=== PATIENT | male | born 1965 | race Caucasian/White ===

== ENCOUNTER 2024-08-20 21:28 | Emergency (ER) | payer MEDICAID, SELFPAY ==
[2024-08-20 21:29] VITALS: BMI 35.8
--- NOTE | 2024-08-20 21:34 | EKG_ITS ---
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
[2024-08-20 22:22] VITALS: BP 162/82; PULSE 99; RESP 24; TEMP 36.8; O2SAT 95
--- NOTE | 2024-08-20 22:53 | XR_ITS ---
Examination: AP chest single view Technique: AP portable upright chest single view Exam date and time: August 20, 2024 1101 hrs. Comparison July 19, 2022 Indications: Chest pain shortness of breath today Findings: Mild prominence left ventricle Cardiac leads satisfactory position Suspicious for early left base pneumonia with obscuration detail left hemidiaphragm Mild vascular congestion Impression: Suspicious for early left base pneumonia
--- NOTE | 2024-08-20 22:54 | PD.EDRME ---
Rapid Medical Screening Exam [facility] Arrival date/time: 08/20/24 21:28 58M with history of COPD, DM, HTN, and drug/alcohol use presents to ED with worsening cough and SOB. Patient is currently on some ABX and steroid w/o improvement. Chief Complaint: Shortness of Breath/Dyspnea Vital signs: Vital Signs Temperature 98.3 F 08/20/24 22:22 Pulse Rate 99 08/20/24 22:22 Respiratory Rate 24 H 08/20/24 22:22 Blood Pressure 162/82 H 08/20/24 22:22 Pulse Oximetry (%) 95 08/20/24 22:22 Oxygen Delivery Method Room Air 08/20/24 22:22
[2024-08-20 23:07] VITALS: PULSE 82; RESP 20; O2SAT 97
[2024-08-20] MEDS: LEVALBUTEROL RT 1.25 MG/0.5 ML NEBU 5 MG INH (23:07)
[2024-08-20] MEDS: SODIUM CHLORIDE RT SOL 0.9% 3 ML NEBU INH (23:07)
[2024-08-20] MEDS: IPRATROPIUM RT 0.5 MG/ 2.5 ML NEBU 1 MG INH (23:07)
[2024-08-20 23:54] LABS: Basophils % (Auto) 1 % (0-2.5); Eosinophils # (Auto) 0.3 Thou/mm3 (0.0-0.5); Eosinophils % (Auto) 5 % (0-10); Hematocrit 45.6 % (41.0-53.0); Hemoglobin 14.6 g/dL (13.5-16.0); Immature Granulocytes % (Auto) 0 % (0-0); Immature Granulocytes Auto 0.01 Thou/mm3 (0.00-0.00); Lymphocytes # (Auto) 1.5 Thou/mm3 (1.0-4.8); Lymphocytes % (Auto) 23 % (10-50); Mean Corpuscular Hemoglobin 28.7 pg (25.0-35.0); Mean Corpuscular Volume 90 fL (80-100); Monocytes # (Auto) 0.8 Thou/mm3 (0.0-0.8); Monocytes % (Auto) 12 % (0-12); Neutrophils # (Auto) 3.8 Thou/mm3 (1.8-7.7); Neutrophils % (Auto) 59 % (37-80); Nucleated Red Blood Cell % 0 /100 WBC (0); Platelet Count 165 Thou/mm3 (140-440); RDW Standard Deviation 52.4 fL (35.1-43.9); Red Blood Count 5.09 Miln/mm3 (4.50-5.90); White Blood Count 6.4 Thou/mm3 (3.8-10.6)
[2024-08-21 00:08] LABS: INR 1.1 (0.9-1.3); Partial Thromboplastin Time 27.9 Seconds (22.0-36.0); Prothrombin Time 12.1 Seconds (9.0-12.2)
[2024-08-21 00:19] LABS: Alanine Aminotransferase 16 U/L (10-49); Albumin, Serum 3.7 gm/dL (3.5-5.0); Albumin/Globulin Ratio 1.1 (1.2-2.2); Alkaline Phosphatase 204 U/L (46-116); Anion Gap 6 (7-16); Aspartate Amino Transferase 24 U/L (0-34); BUN/Creatinine Ratio 13 Ratio (12-20); Bilirubin,Total 0.4 mg/dL (0.3-1.2); Blood Urea Nitrogen 18 mg/dL (9-23); Calcium 8.5 mg/dL (8.3-10.6); Calcium (Corrected) 8.7 mg/dL (8.5-10.1); Carbon Dioxide 25.7 mMol/L (20.0-31.0); Chloride 104 mMol/L (98-107); Creatinine (Component) 1.4 mg/dL (0.6-1.3); Estimated Creatinine Clearance 77.8 mL/min (>60); Globulin 3.5 gm/dL (2.3-3.5); Glucose 142 mg/dL (74-106); Osmolality,Calculated 275 (275-295); Potassium 4.2 mMol/L (3.4-5.1); Sodium 136 mMol/L (136-145); Total Protein 7.2 gm/dL (5.7-8.2); eGFR 59 See Note
[2024-08-21 00:34] LABS: B-Type Natriuretic Peptide 1320 pg/mL (0-100)
[2024-08-21] MEDS: DEXAMETHASONE SOD PHOS INJ 10 MG/ML VIAL PO (00:45)
--- NOTE | 2024-08-21 01:45 | PC.NURSE ---
Pt asking if he can leave, and Pt was made aware that he has abnormal labs that require further testing, specifically him having a elevated troponin and Pt was exaplin the dangers of him leveaing up to . Pt stated, ok i will think about it. Pt then got up out of the wheel chair and walk out of the ER and did not sign the AMA sheet. Charge nurse Mehran and MERI Gregory made aware
== END 2024-08-21 01:45 | disposition left against medical advice (07) ==
PROVIDERS: Physician Assistant; Emergency Provider Emergency Medicine
DX: R06.02 Shortness of breath (principal); R05.9 Cough, unspecified; R07.9 Chest pain, unspecified; Z95.0 Presence of cardiac pacemaker; Z53.29 Procedure and treatment not carried out because of patient's decision for other reasons
CPT/HCPCS: 36415; 71045; 80053; 83880; 84484; 85025; 85610; 85730; 93005; 94644; 99281; J1100

== ENCOUNTER → 2024-09-10 | Outpatient (CLI) | payer MEDICAID, SELFPAY ==
[2024-09-10 11:16] LABS: Basophils # (Auto) 0.1 Thou/mm3 (0.0-0.2); Basophils % (Auto) 1 % (0-2.5); Eosinophils # (Auto) 0.1 Thou/mm3 (0.0-0.5); Eosinophils % (Auto) 1 % (0-10); Hemoglobin 14.7 g/dL (13.5-16.0); Immature Granulocytes % (Auto) 0 % (0-0); Immature Granulocytes Auto 0.02 Thou/mm3 (0.00-0.00); Lymphocytes # (Auto) 1.7 Thou/mm3 (1.0-4.8); Lymphocytes % (Auto) 22 % (10-50); Mean Corpuscular Hemoglobin 28.4 pg (25.0-35.0); Mean Corpuscular Volume 89 fL (80-100); Monocytes # (Auto) 0.6 Thou/mm3 (0.0-0.8); Monocytes % (Auto) 7 % (0-12); Neutrophils # (Auto) 5.4 Thou/mm3 (1.8-7.7); Neutrophils % (Auto) 69 % (37-80); Nucleated Red Blood Cell # 0.02 Thou/mm3 (0.00-0.00); Nucleated Red Blood Cell % 0 /100 WBC (0); Platelet Count 215 Thou/mm3 (140-440); Red Blood Count 5.17 Miln/mm3 (4.50-5.90); White Blood Count 7.7 Thou/mm3 (3.8-10.6)
[2024-09-10 11:33] LABS: Albumin, Serum 3.6 gm/dL (3.5-5.0); Anion Gap 6 (7-16); BUN/Creatinine Ratio 23 Ratio (12-20); Blood Urea Nitrogen 34 mg/dL (9-23); Calcium 9.4 mg/dL (8.3-10.6); Calcium (Corrected) 9.7 mg/dL (8.5-10.1); Carbon Dioxide 27.4 mMol/L (20.0-31.0); Chloride 103 mMol/L (98-107); Creatinine (Component) 1.5 mg/dL (0.6-1.3); Glucose 315 mg/dL (74-106); Osmolality,Calculated 291 (275-295); Phosphorous 5.3 mg/dL (2.4-5.1); Sodium 136 mMol/L (136-145); eGFR 54 See Note
[2024-09-10 11:40] LABS: B-Type Natriuretic Peptide 2459 pg/mL (0-100)
== END | disposition home or self-care (01) ==
PROVIDERS: PCP Family Medicine; Referring Provider Internal Medicine Cardiovascular Disease; Visit Provider Internal Medicine Cardiovascular Disease
DX: I11.0 Hypertensive heart disease with heart failure (principal); I50.9 Heart failure, unspecified; E78.49 Other hyperlipidemia
CPT/HCPCS: 36415; 80069; 83880; 85025

== ENCOUNTER 2024-10-07 17:44 | Emergency (ER) | payer MEDICAID, SELFPAY ==
[2024-10-07 18:00] VITALS: BP 173/117; PULSE 102; RESP 22; TEMP 38.3; O2SAT 97; BMI 38.5
--- NOTE | 2024-10-07 18:02 | PD.EDADULT ---
ED General RME/HPI General Stated complaint: SOB Time Seen by Provider: 10/07/24 17:55 Arrival date/time: 10/07/24 17:44 RME / HPI RME / HPI narrative: 59-year-old male patient with significant history of congestive heart failure, diabetes mellitus, cardiomyopathy was brought in by EMS for evaluation regarding worsening redness bilateral lower extremity and shortness of breath. Patient's been having worsening shortness of breath, worsening swelling and redness to bilateral lower extremity for couple of days, was seen by PCP earlier today and was prescribed cefuroxime and Related Data Home Medications ?Medication ?Instructions ?Recorded ?Confirmed gabapentin 600 mg tablet 600 mg PO TID 07/19/22 07/19/22 Previous Rx's ?Medication ?Instructions ?Recorded albuterol sulfate 90 mcg/actuation 1 - 2 puff inhalation Q6HR PRN 07/08/17 aerosol inhaler (ProAir HFA) WHEEZING #1 inh dapagliflozin propanediol 10 mg 10 mg PO QDAY #30 tabs 07/22/22 tablet (Farxiga) insulin degludec 100 unit/mL (3 40 unit (0.4 mL) subcut QAMAC 30 07/22/22 mL) subcutaneous pen (Tresiba days #15 mL FlexTouch U-100 insulin) Allergies Allergy/AdvReac Type Severity Reaction Status Date / Time No Known Allergies Allergy Unknown Verified 08/20/24 21:31 ED Exam Narrative Physical exam: VITAL SIGNS: Reviewed. GENERAL APPEARANCE: Alert and interactive, follows commands, no acute distress, HEAD AND FACE: Non-traumatic. ENT: PERRL, pink conjunctivitis, eyelid no trauma, Mucous membrane moist. NECK: Supple, nontender, no nuchal rigidity. CHEST: No tenderness, no crepitus, no paradoxical movement, no retractions. LUNGS: Clear, well ventilated, symmetric, no rales, no wheezing, no ronchi, no stridor, good breath sounds bilaterally. HEART: Regular rate, regular rhythm, no murmur, no gallops. ABDOMEN: Soft, positive bowel sounds, nondistended, no guarding, nontender, no rebound, no masses, RECTAL: Deferred. GENITAL: Deferred. NEUROLOGICAL: Gross motor function intact sensory function intact, Appropriate for age. MUSCULOSKELETAL: low back nontender, full range of motion. EXTREMITIES: Bilateral lower extremity redness and swelling with tenderness, full range of motion. Capillary refill less than 2 seconds to bilateral foot SKIN: Color pink, dry, no rash, no lacerations, no abrasions, no contusions. LYMPHATICS: Deferred. 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 10/07/24 18:00 Completed Continuous Pulse Oximetry STAT Care 10/07/24 18:00 Completed EKG (ED ONLY) *Do not use* NOW Care 10/07/24 18:00 Completed In and Out Catheter X1PRN Care 10/07/24 18:00 Completed Insert IV NOW Care 10/07/24 18:00 Completed NPO STAT Care 10/07/24 18:00 Completed Strict Intake and Output Routine Care 10/07/24 18:00 Ordered EKG (ED Only) Stat Exams 10/07/24 18:00 Ordered B-Type Natriuretic Peptide Stat Lab 10/07/24 18:25 Completed Blood Culture (Lab) Stat Lab 10/07/24 18:20 Received CBC Stat Lab 10/07/24 18:25 Completed Comprehensive Metabolic Panel Stat Lab 10/07/24 18:25 Completed LDH (Lactate Dehydrogenase) Stat Lab 10/07/24 18:25 Completed Lactate (Lactic Acid) Stat Lab 10/07/24 18:25 Completed Lipase Stat Lab 10/07/24 18:25 Completed Magnesium Stat Lab 10/07/24 18:25 Completed Partial Thromboplastin Time Stat Lab 10/07/24 18:25 Completed Phosphorous Stat Lab 10/07/24 18:25 Completed Procalcitonin Stat Lab 10/07/24 18:25 Completed Prothrombin Time with INR Stat Lab 10/07/24 18:25 Completed Troponin I Stat Lab 10/07/24 18:25 Completed Urinalysis Stat Lab 10/07/24 19:01 Completed Urine Culture Stat Lab 10/07/24 19:01 Received cefTRIAXone/D5w 1gm IV premix [Rocephin/D5w 1gm IV Med 10/07/24 18:01 Discontinued premix] 50 ml IV X1 Oxygen Delivery NOW RT 10/07/24 18:00 Completed Vital Signs Vital signs: Vital Signs Temperature 101.0 F H 10/07/24 18:00 Pulse Rate 102 H 10/07/24 18:00 Respiratory Rate 22 H 10/07/24 18:00 Blood Pressure 173/117 H 10/07/24 18:00 Pulse Oximetry (%) 97 10/07/24 18:00 Oxygen Delivery Method Nasal Cannula 10/07/24 18:00 Oxygen Flow Rate 6 10/07/24 18:00 MDM Patient data External records reviewed:: None Clinical information provided by:: patient Social determinants that could affect healthcare access:: none Patient has the following chronic illnesses:: Diabetes mellitus cardiomyopathy congestive heart failure hypertension How is presenting disease/condition affected by chronic disease/condition?: exacerbated by Evaluation data The following diagnostics were reviewed and interpreted by me:: lab results and radiology exam(s) Lab and/or radiology exams considered but not ordered:: None Interpretation Summary: AMA Medications Medications considered but not ordered:: AMA Medication administrations:: Medication Administration History Discontinued Medications Ceftriaxone Sodium/Dextrose (Rocephin/D5w 1gm Iv Premix) 50 mls @ 100 mls/hr IV X1 ONE Stop: 10/07/24 18:30 AMA Consultations Consultation(s) initiated? (list below): No Diagnosis Differential Diagnosis ED Complaint MDM: Cellulitis, shortness of breath, fever Most likely diagnosis given after review of the tests above:: Cellulitis leg Admission Indicated Admission indicated?: not indicated (AMA) Explain why admission is indicated or not indicated:: AMA Admission Request Was there a request for admission?: No Admission Attestation Admission request attestation: AMA Disposition Plan Disposition Plan: other (specify) (AMA) Medical Decision Making MDM Narrative MDM Narrative: Pt has normal mental status and adequate capacity to make medical decisions. Oriented x 4. The patient refuses evaluation and treatment and wants to be discharged. The risks have been explained to the patient, including progression of possible worsening of current disease, worsening illness, chronic pain, permanent disability and . The benefits of evaluation and treatment have also been explained, including the availability and proximity of nurses, physicians, monitoring, diagnostic testing, and treatments. The patient was able to understand and state the risks and benefits of AMA.Patient had the opportunity to ask questions about their medical condition. He left hospital against medical advice. Differential Diagnosis Differential Diagnosis: Cellulitis, shortness of breath, fever Lab Data 10/07/24 18:25 10/07/24 18:25 Labs: Lab Results 10/07/24 10/07/24 Range/Units 18: 19:01 WBC 11.0 H (3.8-10.6) Thou/mm3 RBC 5.36 (4.50-5.90) Miln/mm3 Hgb 15.3 (13.5-16.0) g/dL Hct 47.9 (41.0-53.0) % MCV 89 (80-100) fL MCH 28.5 (25.0-35.0) pg MCHC 31.9 (31.0-37.0) g/dl RDW Std Deviation 61.1 H (35.1-43.9) fL Plt Count 189 (140-440) Thou/mm3 Neut % (Auto) 81 H (37-80) % Lymph % (Auto) 11 (10-50) % [place] % (Auto) 7 (0-12) % Eos % (Auto) 1 (0-10) % Baso % (Auto) 0 (0-2.5) % Neut # (Auto) 8.9 H (1.8-7.7) Thou/mm3 Lymph # (Auto) 1.2 (1.0-4.8) Thou/mm3 [place] # (Auto) 0.8 (0.0-0.8) Thou/mm3 Eos # (Auto) 0.1 (0.0-0.5) Thou/mm3 Baso # (Auto) 0.0 (0.0-0.2) Thou/mm3 Immature Gran # (Auto) 0.04 H (0.00-0.00) Thou/mm3 Absolute Nucleated RBC 0.00 (0.00-0.00) Thou/mm3 Immature Gran % 0 (0-0) % Nucleated RBC % 0 (0) /100 WBC PT 12.4 H (9.0-12.2) Seconds INR 1.1 (0.9-1.3) APTT 26.7 (22.0-36.0) Seconds Sodium 136 (136-145) mMol/L Potassium 4.4 (3.4-5.1) mMol/L Chloride 102 (98-107) mMol/L Carbon Dioxide 27.0 (20.0-31.0) mMol/L Anion Gap 7 (7-16) BUN 27 H (9-23) mg/dL Creatinine 2.1 H (0.6-1.3) mg/dL Estim Creat Clear Calc 53.2 L (>60) mL/min eGFR 36 L (60 - ) See Note BUN/Creatinine Ratio 13 (12-20) Ratio Glucose 227 H (74-106) mg/dL Calculated Osmolality 284 (275-295) Lactic Acid 1.3 (0.4-2.0) mMol/L Calcium 8.6 (8.3-10.6) mg/dL Corrected Calcium 8.8 (8.5-10.1) mg/dL Phosphorus 4.1 (2.4-5.1) mg/dL Magnesium 1.9 (1.6-2.6) mg/dL Total Bilirubin 0.7 (0.3-1.2) mg/dL AST 21 (0-34) U/L ALT 19 (10-49) U/L Alkaline Phosphatase 258 H (46-116) U/L Lactate Dehydrogenase 258 H (120-246) U/L Troponin I 0.076 H* (0.0-0.045) ng/mL B-Natriuretic Peptide 1630 H* (0-100) pg/mL Total Protein 7.3 (5.7-8.2) gm/dL Albumin 3.7 (3.5-5.0) gm/dL Globulin 3.6 H (2.3-3.5) gm/dL Albumin/Globulin Ratio 1.0 L (1.2-2.2) Lipase 27 (12-53) U/L Procalcitonin 0.22 (0.0-0.49) ng/ml Ur Collection Type Clean Catch Urine Color Lt-Yellow (Lt Yel-Yel) Urine Clarity Clear (Clear/Hazy) Urine pH 6.0 (5.0-7.0) Ur Specific [place] 1.017 (1.001-1.035) Urine Protein 2+ A (Neg - Trace) Urine Glucose (UA) 4+ A (Negative) Urine Ketones Negative (Negative) Urine Blood Trace (Negative) Urine Nitrite Negative (Negative) Urine Bilirubin Negative (Negative) Urine Urobilinogen (Auto) Negative (0.0-1.0) mg/dL Ur Leukocyte Esterase Negative (Negative) Urine RBC 4 H (0-3) /hpf Urine WBC < 1 (0-5) /hpf Ur Squamous Epith Cells 0 (0-5) /hpf Urine Bacteria None (None) Discharge Plan Plan Patient Disposition: Left Against Medical Advice Prescriptions/Referrals Prescriptions/Med Rec: No Action albuterol sulfate [ProAir HFA] 8.5 GM HFA aerosol inhaler 1 - 2 puff Inhalation Q6HR PRN (Reason: WHEEZING) Qty: 1 0RF Rx Instructions: Please give and use spacer gabapentin 600 mg tablet 600 mg PO TID Patient Comments: TAKE 1 TABLET BY MOUTH THREE TIMES A DAY insulin degludec [Tresiba FlexTouch U-100] 100 unit/mL (3 mL) Insulin Pen 40 unit SUBCUT QAMAC 30 Days Qty: 15 0RF Farxiga 10 mg tablet 10 mg PO QDAY Qty: 30 0RF Referrals: Jad Lipscomb MD [Primary Care Provider] - In 1 week Problem List Clinical Impression: Cellulitis Patient/Caregiver Discharge Instructions Print Language: Bulgarian
[2024-10-07 18:29] LABS: Lactate (Lactic Acid) 1.3 mMol/L (0.4-2.0)
[2024-10-07 18:51] LABS: Basophils % (Auto) 0 % (0-2.5); Eosinophils # (Auto) 0.1 Thou/mm3 (0.0-0.5); Eosinophils % (Auto) 1 % (0-10); Hematocrit 47.9 % (41.0-53.0); Hemoglobin 15.3 g/dL (13.5-16.0); Immature Granulocytes % (Auto) 0 % (0-0); Immature Granulocytes Auto 0.04 Thou/mm3 (0.00-0.00); Lymphocytes # (Auto) 1.2 Thou/mm3 (1.0-4.8); Lymphocytes % (Auto) 11 % (10-50); Mean Corpuscular HGB Conc 31.9 g/dl (31.0-37.0); Mean Corpuscular Hemoglobin 28.5 pg (25.0-35.0); Mean Corpuscular Volume 89 fL (80-100); Monocytes # (Auto) 0.8 Thou/mm3 (0.0-0.8); Monocytes % (Auto) 7 % (0-12); Neutrophils # (Auto) 8.9 Thou/mm3 (1.8-7.7); Neutrophils % (Auto) 81 % (37-80); Nucleated Red Blood Cell % 0 /100 WBC (0); Platelet Count 189 Thou/mm3 (140-440); RDW Standard Deviation 61.1 fL (35.1-43.9); Red Blood Count 5.36 Miln/mm3 (4.50-5.90)
[2024-10-07 18:57] LABS: INR 1.1 (0.9-1.3); Partial Thromboplastin Time 26.7 Seconds (22.0-36.0); Prothrombin Time 12.4 Seconds (9.0-12.2)
[2024-10-07 18:59] LABS: Alanine Aminotransferase 19 U/L (10-49); Albumin, Serum 3.7 gm/dL (3.5-5.0); Alkaline Phosphatase 258 U/L (46-116); Anion Gap 7 (7-16); Aspartate Amino Transferase 21 U/L (0-34); B-Type Natriuretic Peptide 1630 pg/mL (0-100); BUN/Creatinine Ratio 13 Ratio (12-20); Bilirubin,Total 0.7 mg/dL (0.3-1.2); Blood Urea Nitrogen 27 mg/dL (9-23); Calcium 8.6 mg/dL (8.3-10.6); Calcium (Corrected) 8.8 mg/dL (8.5-10.1); Chloride 102 mMol/L (98-107); Creatinine (Component) 2.1 mg/dL (0.6-1.3); Estimated Creatinine Clearance 53.2 mL/min (>60); Globulin 3.6 gm/dL (2.3-3.5); Glucose 227 mg/dL (74-106); LDH (Lactate Dehydrogenase) 258 U/L (120-246); Lipase 27 U/L (12-53); Magnesium 1.9 mg/dL (1.6-2.6); Osmolality,Calculated 284 (275-295); Phosphorous 4.1 mg/dL (2.4-5.1); Potassium 4.4 mMol/L (3.4-5.1); Procalcitonin 0.22 ng/ml (0.0-0.49); Sodium 136 mMol/L (136-145); Total Protein 7.3 gm/dL (5.7-8.2); eGFR 36 See Note
[2024-10-07 19:02] LABS: Troponin I 0.076 ng/mL (0.0-0.045)
[2024-10-07 19:17] LABS: Collection Type, Urine Clean Catch; Squamous Epithelial Cell,Urine 0 /hpf (0-5)
--- NOTE | 2024-10-07 19:27 | PC.NURSE ---
pt wanted to leave AMA, pt was A/O x4 and AMA form was filled out to the best of nurse and pts knowledge of why pt was wanting to leave. pt was given yellow copy of AMA form. left 1924
[2024-10-07 19:44] LABS: Bilirubin,Urine Negative (Negative); Blood,Urine Trace (Negative); Clarity,Urine Clear (Clear/Hazy); Color,Urine Lt-Yellow (Lt Yel-Yel); Glucose, Urine 4+ (Negative); Ketones,Urine Negative (Negative); Leukocyte Esterase,Urine Negative (Negative); Nitrite,Urine Negative (Negative); Protein,Urine 2+ (Neg - Trace); RBC,Urine 4 /hpf (0-3); Specific Gravity,Urine 1.017 (1.001-1.035); Urobilinogen,Urine Negative mg/dL (0.0-1.0); WBC,Urine < 1 /hpf (0-5)
== END 2024-10-07 19:29 | disposition left against medical advice (07) ==
LOC: SERX 18:31
PROVIDERS: Nurse Practitioner Family; Emergency Provider Emergency Medicine; PCP Family Medicine
DX: L03.116 Cellulitis of left lower limb (principal); L03.115 Cellulitis of right lower limb; Z53.29 Procedure and treatment not carried out because of patient's decision for other reasons; E11.9 Type 2 diabetes mellitus without complications; I42.9 Cardiomyopathy, unspecified; I50.9 Heart failure, unspecified
CPT/HCPCS: 36415; 80053; 81001; 83605; 83615; 83690; 83735; 83880; 84100; 84145; 84484; 85025; 85610; 85730; 87040; 87086; 99283

== ENCOUNTER 2024-10-09 03:47 | Inpatient (IN) | payer MEDICAID, SELFPAY ==
[2024-10-09] VITALS (16 sets, daily range): BP systolic 95–157; BP diastolic 73–116; PULSE 81–105; RESP 15–24; TEMP 35.7–37.6; O2SAT 89–97; BMI 37.1
--- NOTE | 2024-10-09 04:04 | PD.EDRME ---
Rapid Medical Screening Exam RME Arrival date/time: 10/09/24 03:47 59 yo male present to ED for c/o of lower leg swelling/sob for 3 days I have greeted and performed a focused initial assessment of this patient. A comprehensive ED assessment and evaluation of the patient, analysis of all test results, and completion of the medical decision making process will be conducted by additional ED providers. Chief Complaint: Extremity Problem,Nontraumatic Time Seen by Provider: 10/09/24 04:02 Vital signs: Vital Signs Temperature 96.3 F L 10/09/24 03:59 Pulse Rate 84 10/09/24 03:59 Respiratory Rate 20 10/09/24 03:59 Blood Pressure 120/87 H 10/09/24 03:59 Pulse Oximetry (%) 93 L 10/09/24 03:59 Oxygen Delivery Method Room Air 10/09/24 03:59
--- NOTE | 2024-10-09 04:05 | EKG_ITS ---
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
--- NOTE | 2024-10-09 04:05 | XR_ITS ---
Examination: PA lateral chest 2 views TECHNIQUE: Upright PA lateral chest 2 views Exam date and time: October 09, 2024 0410 hours Comparison August 20, 2024 INDICATIONS: Shortness of breath leg edema today. FINDINGS: Mild heart failure Mild enlargement cardiac contour Prominent vascular congestion Early septal edema at the lung bases and fluid in the fissures on the lateral view Mild blunting of costophrenic angles IMPRESSION: Early heart failure
[2024-10-09 05:46] LABS: Lactate (Lactic Acid) 1.8 mMol/L (0.4-2.0)
[2024-10-09 05:52] LABS: Basophils % (Auto) 0 % (0-2.5); Eosinophils # (Auto) 0.1 Thou/mm3 (0.0-0.5); Eosinophils % (Auto) 1 % (0-10); Hematocrit 44.7 % (41.0-53.0); Hemoglobin 14.5 g/dL (13.5-16.0); Immature Granulocytes % (Auto) 0 % (0-0); Immature Granulocytes Auto 0.04 Thou/mm3 (0.00-0.00); Lymphocytes # (Auto) 1.4 Thou/mm3 (1.0-4.8); Lymphocytes % (Auto) 14 % (10-50); Mean Corpuscular HGB Conc 32.4 g/dl (31.0-37.0); Mean Corpuscular Hemoglobin 28.8 pg (25.0-35.0); Mean Corpuscular Volume 89 fL (80-100); Monocytes # (Auto) 0.9 Thou/mm3 (0.0-0.8); Monocytes % (Auto) 9 % (0-12); Neutrophils # (Auto) 7.5 Thou/mm3 (1.8-7.7); Neutrophils % (Auto) 76 % (37-80); Nucleated Red Blood Cell % 0 /100 WBC (0); Platelet Count 174 Thou/mm3 (140-440); RDW Standard Deviation 60.5 fL (35.1-43.9); Red Blood Count 5.04 Miln/mm3 (4.50-5.90); White Blood Count 9.9 Thou/mm3 (3.8-10.6)
[2024-10-09 06:27] LABS: Alanine Aminotransferase 19 U/L (10-49); Albumin, Serum 3.6 gm/dL (3.5-5.0); Alkaline Phosphatase 272 U/L (46-116); Anion Gap 7 (7-16); Aspartate Amino Transferase 19 U/L (0-34); B-Type Natriuretic Peptide 1104 pg/mL (0-100); BUN/Creatinine Ratio 18 Ratio (12-20); Blood Urea Nitrogen 31 mg/dL (9-23); Calcium (Corrected) 9.3 mg/dL (8.5-10.1); Carbon Dioxide 28.7 mMol/L (20.0-31.0); Chloride 99 mMol/L (98-107); Creatinine (Component) 1.7 mg/dL (0.6-1.3); Estimated Creatinine Clearance 64.5 mL/min (>60); Globulin 3.6 gm/dL (2.3-3.5); Glucose 191 mg/dL (74-106); Osmolality,Calculated 281 (275-295); Potassium 4.3 mMol/L (3.4-5.1); Sodium 135 mMol/L (136-145); Total Protein 7.2 gm/dL (5.7-8.2); eGFR 46 See Note
[2024-10-09 06:44] LABS: Troponin I 0.079 ng/mL (0.0-0.045)
--- NOTE | 2024-10-09 08:32 | PC.NURSE ---
Patient came in by private vehicle from home. states that about a week and a half ago his left toes started to become red and in the last 2 days has become very red, swollen, and painful. he states that his right leg was also swollen but has decreased. Describes the pain as burning and throbbing 10/10 PMH: Stroke, NH (pacemaker placed about 2 years ago), DM, HTN, nephrectoy, and COPD.
--- NOTE | 2024-10-09 09:27 | EDNOTE_ITS ---
ED General RME/HPI General Chief complaint: Extremity Problem,Nontraumatic Stated complaint: BILATERAL LEG SWELLING Time Seen by Provider: 10/09/24 04:02 Arrival date/time: 10/09/24 03:47 RME / HPI RME / HPI narrative: Bonny complaint: 10/09/24 03:47 lower leg swelling and pain for 3 days HPI: Patient is a 59 year old male who presented to ED for chief complaint of left lower leg swelling x 3 days. Patient started experiencing left foot first digit pain 4 days ago which progressively got worse, with skin changes around the area and significant swelling trending upwards towards the knee. Over the last 5 days patient has developed severe redness, tenderness and a rash on both his lower extremities. Patient has chronic skin changes on his right lower extremity, due to venous insufficiency. However his left lower extremity has now developed a red maculopapular rash extending up to the mid shins, with pain extending above the knee he also had subjective fevers and chills at home, witnessed by his caretakers. Patient is otherwise ambulatory however needs assistance with activities of daily living. He describes his pain as dull, achy and 7/10 in severity, and progressing up his leg. He has never experienced the symptoms in the past. In the ED, vitals were within normal limits. Lab work negative for leukocytosis, mild LUDY noted CR 1.7 and GFR 46. BNP >1K, likely in the setting of [employer]. Past medical history: Congenital unilateral kidney- RT only Primary hypertension HFrEF s/p [employer]-D 2 years ago COPD Type 2 insulin-dependent diabetes mellitus Peripheral neuropathy Hypercholesterolemia Morbid obesity Allergies: No known food or drug allergies Social history: Tobacco?Use:?Denies ETOH?Use:?Denies Drug?Note:?Denies Social?History?Note:?Lives?at home with his mother, 2caretakers come in for 12- hour shifts. Family history: Denies any family history of sudden cardiac , stroke or cancers. Related Data Home Medications ?Medication ?Instructions ?Recorded ?Confirmed gabapentin 600 mg tablet 600 mg PO TID 07/19/22 07/19/22 Previous Rx's ?Medication ?Instructions ?Recorded albuterol sulfate 90 mcg/actuation 1 - 2 puff inhalation Q6HR PRN 07/08/17 aerosol inhaler (ProAir HFA) WHEEZING #1 inh dapagliflozin propanediol 10 mg 10 mg PO QDAY #30 tabs 07/22/22 tablet (Farxiga) insulin degludec 100 unit/mL (3 40 unit (0.4 mL) subcut QAMAC 30 07/22/22 mL) subcutaneous pen (Tresiba days #15 mL FlexTouch U-100 insulin) Allergies Allergy/AdvReac Type Severity Reaction Status Date / Time No Known Allergies Allergy Unknown Verified 10/09/24 03:51 Review of Systems Review of Systems Narrative Review of Systems: GENERAL: fevers/chills , no diaphoresis. HEENT: Denies headache or visual/hearing changes. Denies nasal discharge. NEURO: Denies unusual weakness or difficulty speaking. CARDIO: Denies chest pain or palpitations. PULM: Denies SOB, coughing, or wheezing. GI: Denies abdominal pain, N/V/C/D. Reports having BMs URO: Denies burning/itching/pain/urinary changes. MSK/EXT/SKIN: Left leg swelling, pain and redness. PSYCH: Cooperative, pleasant mood & affect. The rest of the review of systems is otherwise negative. ED Exam Narrative Physical exam: Constitutional Alert, oriented 4 , obese HEENT Vision grossly intact. Patent nares. Trachea midline. On RA, sats 92-94% Respiratory Chest normal on inspection, LT upper chest [employer], clear to auscultation bilaterally. Cardiovascular S1 and S2 audible, RRR. No murmurs or carotid bruit. No gross JVD. Abdominal Soft, distended, non tender to palpation in all quadrants. BS + Genitourinary No bladder tenderness, no flank pain. Normal to palpation. Musculoskeletal LT LE erythema, tenderness up to the knee. 2+ B/L LE edema up to mid shins Neurological CN II - XII grossly intact. Extremity motor and sensation grossly intact. Skin LLE : maculo-papular rash up to mid david, erythema. RLE : CVI skin changes due to extravasation, chronic. Psychiatric Patient has a good affect, is cooperative. Course Course Course Narrative: Medications given: Ancef x1 Tylenol 1g x1 for LT LE cellulitis IV Lasix 60mg x1 for B/L LE edema and oxygen sats 89% on re-eval Quality Measures none Orders Category Date Time Status EKG (ED ONLY) *Do not use* NOW Care 10/09/24 04:06 Completed IV [Insert IV] STAT Care 10/09/24 04:[address] LE LT wo con Stat Exams 10/09/24 09:58 Completed EKG (ED Only) Stat Exams 10/09/24 04:05 Draft XR chest 2V Stat Exams 10/09/24 04:05 Completed BNP [B-Type Natriuretic Peptide] Stat Lab 10/09/24 04:50 Completed Blood Culture (Lab) Stat Lab 10/09/24 04:50 Received CBC Stat Lab 10/09/24 04:50 Completed CMP [Comprehensive Metabolic Panel] Stat Lab 10/09/24 04:50 Completed Lactic Acid [Lactate (Lactic Acid)] Stat Lab 10/09/24 04:50 Completed Troponin I Stat Lab 10/09/24 04:50 Completed Acetaminophen Tab [Tylenol ES Tab] Med 10/09/24 10:54 Discontinued 1,000 mg PO X1 ONE Furosemide Inj [Lasix Inj] Med 10/09/24 10:53 Discontinued 60 mg IVP X1 ONE ceFAZolin/D5W 2 GM IV [Ancef 2gm Ivpb] Med 10/09/24 10:53 Discontinued 2 gm in 100 ml IV X1 Special Diet Request Routine Oth 10/09/24 10:53 Active Reevaluation(s) Reevaluation #1: 11:00am Oxygen saturations 89% on RA Will give IV Lasix 60mg x1 for bilateral LE edema (Patient takes Metolazone at home) Vital Signs Vital signs: Vital Signs Temperature 96.3 F L 10/09/24 03:59 Pulse Rate 84 10/09/24 03:59 Respiratory Rate 20 10/09/24 03:59 Blood Pressure 120/87 H 10/09/24 03:59 Pulse Oximetry (%) 93 L 10/09/24 03:59 Oxygen Delivery Method Room Air 10/09/24 03:[address] [facility] Patient data External records reviewed:: [facility] previous records Clinical information provided by:: patient and functional manager Social determinants that could affect healthcare access:: none Patient has the following chronic illnesses:: Primary hypertension HFrEF s/p [employer] 2 years ago COPD Type 2 insulin-dependent diabetes mellitus Peripheral neuropathy Hypercholesterolemia Morbid obesity How is presenting disease/condition affected by chronic disease/condition?: e xacerbated by Evaluation data The following diagnostics were reviewed and interpreted by me:: lab results, radiology exam(s) and EKG tracing(s) Lab and/or radiology exams considered but not ordered:: XR LE Interpretation Summary: LT LE cellulitis Medications Medications considered but not ordered:: Morphine Medication administrations:: Medication Administration History Acetaminophen (Acetaminophen 325 Mg Tablet) 650 mg PO Q6H PRN PRN Reason: pain and Fever >100.4 Stop: 11/08/24 14:01 Hydrocodone Bitart/Acetaminophen (Hydrocodone/Apap 5/325 Tablet) 1 tab PO Q4HR PRN PRN Reason: PAIN SCALE 4-10(Mod-Sev Stop: 10/14/24 14:01 Last Admin: 10/09/24 16:45 Dose: 1 tab Documented By: DO Aspirin (Aspirin Ec 81 Mg Tabec) 81 mg PO X1 ONE Stop: 10/10/24 09:01 Atorvastatin Calcium (Atorvastatin Calcium 20 Mg Tablet) 20 mg PO HS DELFINA Stop: 11/08/24 20:59 Dextrose (Dextrose 50%-Water Inj 50 Ml Syringe) 25 ml IV Q15MIN PRN PRN Reason: BG 50-70 responsive npo pt Stop: 11/08/24 14:06 Dextrose (Dextrose 50%-Water Inj 50 Ml Syringe) 50 ml IV Q15MIN PRN PRN Reason: BG <50 OR BG <70 & pt unresponsive Stop: 11/08/24 14:06 Enoxaparin Sodium (Enoxaparin Sod Inj 40 Mg/0.4 Ml Syringe) 40 mg SC QDAY DELFINA Stop: 10/24/24 08:59 Glucagon (Glucagon Inj 1 Mg Vial) 1 mg IM Q15MIN PRN PRN Reason: BG <70, and no IV access Cefazolin Sodium (Ancef 2gm Ivpb) 2 gm in 100 mls @ 100 mls/hr IV Q8HR DELFINA Stop: 10/16/24 14:10 Last Infusion: 10/09/24 16:08 Dose: Infused Documented By: Admin: 10/09/24 14:45 Dose: 100 mls/hr Documented By: ISA Bumetanide 20 mg/ IV (Miscellaneous Supplies) 80 mls @ 8 mls/hr IV .Q10H [facility] Stop: 10/10/24 00:13 Last Admin: 10/09/24 15:11 Dose: 2 mg/hr, 8 mls/hr Documented By: ISA Insulin Human Lispro (Insulin Lispro (Admelog) 1 Unit/0.01 Ml Unit) 0 unit SC AC [facility]; Protocol Stop: 11/08/24 16:59 Last Admin: 10/09/24 17:31 Dose: 1 unit Documented By: ISA Co-signed By: DO Ondansetron HCl (Ondansetron Inj 2 Mg/Ml Inj 2 Ml) 4 mg IV Q6H PRN; Protocol PRN Reason: NAUSEA OR VOMITING Stop: 11/08/24 14:01 Pantoprazole Sodium (Pantoprazole 40 Mg Tablet) 40 mg PO QDAY [facility] Stop: 11/09/24 08:59 Discontinued Medications Acetaminophen (Acetaminophen 500 Mg Tablet) 1,000 mg PO X1 ONE Stop: 10/09/24 10:55 Last Admin: 10/09/24 11:03 Dose: 1,000 mg Documented By: ISA Furosemide (Furosemide Inj 10 Mg/Ml 4ml Vial) 60 mg IVP X1 ONE Stop: 10/09/24 10:54 Last Admin: 10/09/24 11:02 Dose: 60 mg Documented By: ISA Cefazolin Sodium (Ancef 2gm Ivpb) 2 gm in 100 mls @ 200 mls/hr IV X1 ONE Stop: 10/09/24 11:22 Last Infusion: 10/09/24 12:27 Dose: Infused Documented By: Admin: 10/09/24 11:03 Dose: 200 mls/hr Documented By: ISA Emperically for cellulites coevrage Consultations Consultation(s) initiated? (list below): No Diagnosis Differential Diagnosis ED Complaint MDM: necrotizing fascitis Most likely diagnosis given after review of the tests above:: LT LE cellulitis Admission Indicated Admission indicated?: indicated Explain why admission is indicated or not indicated:: Acute cellulitis of LT LE Admission Request Was there a request for admission?: Yes Admission Attestation Admission request attestation: Discussed case with [] from Hospitalist service regarding admission. Discussed patients ED course, exam findings, labs, and radiology results. The Hospitalist [agrees] to accept the patient for admission. Disposition Plan Disposition Plan: other (specify) Medical Decision Making MDM Narrative MDM Narrative: Patient is a 59 year old male who presented with LT lower extremity swelling, pain and rash. CT confirmed Received Ancef x1, tylenol 1g x1 for LT LE cellulitis ; and Lasix 60mg x1 for B/L LE edema Plan: Admit for IV antibiotics and ID consultation re: cellulitis. Differential Diagnosis Differential Diagnosis: necrotizing fascitis Lab Data 10/09/24 04:50 10/09/24 04:50 Labs: Lab Results 10/09/24 Range/Units 04:50 WBC 9.9 (3.8-10.6) Thou/mm3 RBC 5.04 (4.50-5.90) Miln/mm3 Hgb 14.5 (13.5-16.0) g/dL Hct 44.7 (41.0-53.0) % MCV 89 (80-100) fL MCH 28.8 (25.0-35.0) pg MCHC 32.4 (31.0-37.0) g/dl RDW Std Deviation 60.5 H (35.1-43.9) fL Plt Count 174 (140-440) Thou/mm3 Neut % (Auto) 76 (37-80) % Lymph % (Auto) 14 (10-50) % [place] % (Auto) 9 (0-12) % Eos % (Auto) 1 (0-10) % Baso % (Auto) 0 (0-2.5) % Neut # (Auto) 7.5 (1.8-7.7) Thou/mm3 Lymph # (Auto) 1.4 (1.0-4.8) Thou/mm3 [place] # (Auto) 0.9 H (0.0-0.8) Thou/mm3 Eos # (Auto) 0.1 (0.0-0.5) Thou/mm3 Baso # (Auto) 0.0 (0.0-0.2) Thou/mm3 Immature Gran # (Auto) 0.04 H (0.00-0.00) Thou/mm3 Absolute Nucleated RBC 0.00 (0.00-0.00) Thou/mm3 Immature Gran % 0 (0-0) % Nucleated RBC % 0 (0) /100 WBC Sodium 135 L (136-145) mMol/L Potassium 4.3 (3.4-5.1) mMol/L Chloride 99 (98-107) mMol/L Carbon Dioxide 28.7 (20.0-31.0) mMol/L Anion Gap 7 (7-16) BUN 31 H (9-23) mg/dL Creatinine 1.7 H (0.6-1.3) mg/dL Estim Creat Clear Calc 64.5 (>60) mL/min eGFR 46 L (60 - ) See Note BUN/Creatinine Ratio 18 (12-20) Ratio Glucose 191 H (74-106) mg/dL Calculated Osmolality 281 (275-295) Lactic Acid 1.8 (0.4-2.0) mMol/L Calcium 9.0 (8.3-10.6) mg/dL Corrected Calcium 9.3 (8.5-10.1) mg/dL Total Bilirubin 1.0 (0.3-1.2) mg/dL AST 19 (0-34) U/L ALT 19 (10-49) U/L Alkaline Phosphatase 272 H (46-116) U/L Troponin I 0.079 H* (0.0-0.045) ng/mL B-Natriuretic Peptide 1104 H* (0-100) pg/mL Total Protein 7.2 (5.7-8.2) gm/dL Albumin 3.6 (3.5-5.0) gm/dL Globulin 3.6 H (2.3-3.5) gm/dL Albumin/Globulin Ratio 1.0 L (1.2-2.2) Discharge Plan Plan Patient Disposition: Admit Acute Care w/in Hospital Problem List Clinical Impression: Cellulitis, Acute on chronic end-stage systolic heart failure
--- NOTE | 2024-10-09 09:58 | XR_ITS ---
Examination: CT left lower extremity, without contrast. 2-D sagittal reconstructions. 2-D coronal reconstructions. 3-D reconstructions. Date and time of exam:October 09, 2024 1022 hours INDICATIONS: Left lower leg redness swelling and pain beginning 3 weeks ago CTDI: vol (mGy):9.28 DLP: (mGycm):648 Technique: Multiple 1.25 mm axial sections of the left lower extremity without intravenous contrast have been obtained. 2-D sagittal and coronal reconstructions have been obtained. 3-D reconstructions have been obtained. Low dose protocols were performed. One or more of the following dose reduction techniques were used; automated exposure control, adjustment of the mA and/or KV according to patient size, use of iterative reconstruction technique. Findings: Cortex distal femur and patella intact Cortex tibia fibula intact, no cortical erosions or endosteal scalloping Diffuse significant edema in the subcutaneous fatty tissue lower leg with skin thickening, prominent cellulitis pattern No fluid-filled drainable abscess depicted No opaque foreign body IMPRESSION: Severe cellulitis pattern left lower leg Negative for osteomyelitis Negative for fluid-filled soft tissue drainable abscess
[2024-10-09] MEDS: FUROSEMIDE INJ 10 MG/ML 4ML VIAL 60 MG IVP (11:02)
[2024-10-09] MEDS: ceFAZolin/D5W 2 GM IV 2 GM/100 ML BAG IV ×3 (11:03→21:16)
[2024-10-09] MEDS: ACETAMINOPHEN 500 MG TABLET 1000 MG PO (11:03)
--- NOTE | 2024-10-09 14:07 | XR_ITS ---
Examination: Arterial duplex lower extremity study. Date and time of exam: October 09, 2024 1559 hours INDICATIONS: Bilateral leg swelling and pain redness one week Findings: Duplex sonographic imaging of the lower extremity arteries using B-mode/Uriarte scale imaging and Doppler spectral analysis and color flow. Right common femoral artery demonstrates triphasic flow. Right superficial femoral artery demonstrates triphasic flow. Right popliteal artery demonstrates triphasic flow. Right posterior tibial artery demonstrated triphasic flow. Left common femoral artery demonstrates triphasic flow. Left superficial femoral artery demonstrates triphasic flow. Left popliteal artery demonstrates triphasic flow. Left posterior tibial artery demonstrated triphasic flow. Impression: No significant peripheral obstructive arterial disease
--- NOTE | 2024-10-09 14:14 | PD.RESHP ---
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 On assessment patient was accompanied by his caregiver who stated that it was okay to discuss medical conditions at this time. Patient stated that he started having lower extremity swelling for around 2 weeks ago and that his left lower extremity was also having some reddish discoloration which was also accompanied by chills. Patient stated that he has also noticed that he gets a lot more short of breath walking short distances and that he cannot lay flat due to shortness of breath. He was recently placed on metolazone as per patient because he was still having a lot of fluid and was not urinating as much. Patient stated that he has not been on any antibiotics outpatient for his lower extremity swelling. He follows up outpatient with case repairer and lubricating specialist in [place]. He denies any nausea, fevers, vomiting, bloody stools, burning sensation urination, headaches, or chest pain. Of note, patient stated that he used meth 5 days ago. ED course: Initially patient came in mildly hypertensive, hypoxic, and mildly hypothermic. Initial labs were relevant for LUDY (creatinine 1.7), elevated troponins (0.079), and elevated BNP 1104. Initial imaging included chest x-ray which showed CHF pattern, EKG which showed ventricularly paced rhythm, and lower extremity CT which showed severe cellulitis pattern. In the ED patient was given 1 dose of Lasix. PMH: As above Surgical Hx: Cholecystectomy Social Hx: Active smoker (1 pack every other day), admits to meth use (last use 5 days ago), denies any alcohol Review of Systems Review of Systems Narrative Review of Systems: Constitutional: Denies sweats, Denies weight loss/gain, Denies fever, Admits chills. HEENT: Denies hearing loss, Denies ear pain, Denies postnasal drip, Denies double vision, Denies blurry vision. Respiratory: Admits shortness of breath, Denies cough, Denies wheezing. Cardiovascular: Denies chest pain, Denies palpitations, Denies sudden loss of consciousness. GI: Denies blood in stool, Denies constipation, Denies abdominal pain, Denies difficulty swallowing, Denies nausea or vomit. : Denies urinary incontinence, Denies pain while urinating, Denies increased urinary frequency. MSK: Denies joint pain, Denies joint swelling, Denies numbness, Admits lower extremity swelling. Skin: Denies rash, Denies itching, Denies easy bruising. Neuro: Denies headaches, Denies dizziness, Denies seizures. Past Medical History Past Medical History CARDIAC: Positive Hypertension; Negative Congestive Heart Failure RESPIRATORY: Negative Chronic Obstructive Pulmonary Disease (COPD) GENITOURINARY: Negative Renal Disease ENDOCRINE: Positive Diabetes Mellitus Type 2; Negative Diabetes Mellitus Type 1 OTHER HISTORY: Positive Blood Transfusions Social History SMOKING STATUS: Never smoker Exam Vital Signs Temp Pulse Resp BP Pulse Ox O2 Del Method 96.8 F 105 H 22 H 148/80 H 95 Room Air 10/09/24 08:30 10/09/24 12:28 10/09/24 12:28 10/09/24 12:28 10/09/24 12:28 10/09/24 12:28 Narrative Exam General: A/O x3, no acute distress, obese Eyes: PERRL, EOMI. Anicteric, vision grossly intact. Ears: No ear pain, no ear discharge, Hearing grossly intact. Nose: No nasal discharge. Mouth/Throat: Moist mucous membranes, no redness, no lesions. Neck: Neck supple, non-tender, no cervical lymphadenopathy. Lungs: Clear SUKHDEEP to auscultation and percussion, No accessory muscle use. Cardio: Normal S1/S2, regular rhythm, no murmurs, no JVD Abdomen: Soft, non-tender, no palpable masses, peristalsis present, no guarding or rebound. Extremities: Symmetrical, no significant deformities, 2+ edema from SUKHDEEP LE upto mid/lower back/abdomen and 1+ in SUKHDEEP UE , non-tender, peripheral pulses presents. Skin: No rashes, no lesions, warm to touch. Eryhtema in L LE more pronounced than R LE. Neuro: No focal neurological deficits. motor and sensory intact, mild decrease in l LE strength when compared to R LE Psych: Cooperative, appropriate mood and effect. Results: Labs 10/09/24 04:50 10/09/24 04:50 Labs: Short CBC 10/09/24 Range/Units 04:50 WBC 9.9 (3.8-10.6) Thou/mm3 Hgb 14.5 (13.5-16.0) g/dL Hct 44.7 (41.0-53.0) % Plt Count 174 (140-440) Thou/mm3 BMP 10/09/24 04:50 Sodium 135 L Potassium 4.3 Chloride 99 Carbon Dioxide 28.7 BUN 31 H Creatinine 1.7 H Glucose 191 H Calcium 9.0 Cardiac Enzymes 10/09/24 Range/Units 04:50 Troponin I 0.079 H* (0.0-0.045) ng/mL Liver Function 10/09/24 Range/Units 04:50 Total Bilirubin 1.0 (0.3-1.2) mg/dL AST 19 (0-34) U/L ALT 19 (10-49) U/L Alkaline Phosphatase 272 H (46-116) U/L Albumin 3.6 (3.5-5.0) gm/dL Quality Measures Quality Measures none Medications Home Medications and Allergies Home Medications ?Medication ?Instructions ?Recorded ?Confirmed ?Type gabapentin 600 mg tablet 600 mg PO TID 07/19/22 07/19/22 History Allergies Allergy/AdvReac Type Severity Reaction Status Date / Time No Known Allergies Allergy Unknown Verified 10/09/24 03:51 Visit Medications Acetaminophen (Acetaminophen 325 Mg Tablet) 650 mg PO Q6H PRN PRN Reason: pain and Fever >100.4 Stop: 11/08/24 14:01 Hydrocodone Bitart/Acetaminophen (Hydrocodone/Apap 5/325 Tablet) 1 tab PO Q4HR PRN PRN Reason: PAIN SCALE 4-10(Mod-Sev Stop: 10/14/24 14:01 Dextrose (Dextrose 50%-Water Inj 50 Ml Syringe) 25 ml IV Q15MIN PRN PRN Reason: BG 50-70 responsive npo pt Stop: 11/08/24 14:06 Dextrose (Dextrose 50%-Water Inj 50 Ml Syringe) 50 ml IV Q15MIN PRN PRN Reason: BG <50 OR BG <70 & pt unresponsive Stop: 11/08/24 14:06 Enoxaparin Sodium (Enoxaparin Sod Inj 40 Mg/0.4 Ml Syringe) 40 mg SC QDAY [facility] Stop: 10/24/24 08:59 Glucagon (Glucagon Inj 1 Mg Vial) 1 mg IM Q15MIN PRN PRN Reason: BG <70, and no IV access Cefazolin Sodium (Ancef 2gm Ivpb) 2 gm in 100 mls @ 100 mls/hr IV Q8HR [facility] Stop: 10/16/24 14:10 Bumetanide 20 mg/ IV (Miscellaneous Supplies) 80 mls @ 8 mls/hr IV .Q10H [facility] Stop: 10/10/24 00:13 Insulin Human Lispro (Insulin Lispro (Admelog) 1 Unit/0.01 Ml Unit) 0 unit SC [facility]; Protocol Stop: 11/08/24 16:59 Ondansetron HCl (Ondansetron Inj 2 Mg/Ml Inj 2 Ml) 4 mg IV Q6H PRN; Protocol PRN Reason: NAUSEA OR VOMITING Stop: 11/08/24 14:01 Pantoprazole Sodium (Pantoprazole 40 Mg Tablet) 40 mg PO QDAY [facility] Stop: 11/09/24 08:59 Discontinued Medications Acetaminophen (Acetaminophen 500 Mg Tablet) 1,000 mg PO X1 ONE Stop: 10/09/24 10:55 Last Admin: 10/09/24 11:03 Dose: 1,000 mg Furosemide (Furosemide Inj 10 Mg/Ml 4ml Vial) 60 mg IVP X1 ONE Stop: 10/09/24 10:54 Last Admin: 10/09/24 11:02 Dose: 60 mg Cefazolin Sodium (Ancef 2gm Ivpb) 2 gm in 100 mls @ 200 mls/hr IV X1 ONE Stop: 10/09/24 11:22 Last Infusion: 10/09/24 12:27 Dose: Infused Assessment & Plan Plan 59-year-old male with past medical history of COPD, morbid obesity, hypertension, HFrEF (25 to 30% on 2021) s/p defibrillator, IDDM, 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 #Anasarca likely secondary to #Acute decompensated heart failure exacerbation (EF 25 to 30% on 2021) #Hx of HFrEF (25 to 30% EF on 2021) s/p defibrillator ?Patient states that he has been having increased shortness of breath walking short distances as well as while laying flat. ?Patient has 2+ edema from lower extremities up to mid lower back and abdomen as well as 1+ bilateral upper extremity edema. ? Initial BNP was 1104 ? Last echo on file was in 2021 and showed EF of 25 to 30% Plan: ? Bumex drip at 2 mg/h for total of 10 hours ?Echo ordered ?Arterial ultrasound of bilateral lower extremities ? Fluid restriction 1500 ?Daily weights ? Strict ROS's ?Low-sodium diet ? Will continue to monitor #LUDY on CKD stage IIIa ?Patient has a history of IDDM which is most likely be causing some diabetic nephropathy ?DDx diabetic nephropathy versus LUDY due to fluid overload status ?Patient's baseline creatinine is around 1.4-1.5 ? Patient came in with creatinine of 1.7 Plan: ? Diuresis ?Ordered urine creatinine and protein ?Avoid nephrotoxic agents ? Renal dose medications ? Nephrology consulted, pursue recommendations #Left lower extremity cellulitis ? Patient states that for the past week he has noticed his left lower extremity to become swollen and red. ?Patient denies any trauma Plan: ? Ancef 2 g every 8 hours ? Blood cultures ordered ? Will continue to monitor #NSTEMI likely type II ? Troponins were elevated at 0.079 ? This is most likely in the setting of heart failure exacerbation ?EKG did not show any ST changes Plan: ? Trend troponins ? Will continue to monitor #IDDM #Peripheral neuropathy ? Last A1c on 04/2024 was 12% Plan: ?A1c for morning labs ? ISS ? Accu-Cheks and hypoglycemia protocol ordered ? Will continue to monitor #CVA in 2022 with residual left lower extremity weakness #Hyperlipidemia ?Restart patient's aspirin and atorvastatin #COPD #Active smoker ?Consult patient on quitting smoking Disposition: Patient admitted to telemetry for Anasarca, cellulitis and LUDY, continue bumex drip and Abx. Diet: Cardiac, renal, carb consistent GI prophylaxis: protonix DVT prophylaxis: lovenox Code: DNR/DNI Case disclosed with Attending Dr. Thiago Page PGY1 Attending Provider Attestation/Addendum Face to face evaluation was performed by me. I have personally seen and examined the patient. I discussed the assessment and plan with the entire medicine team. I reviewed available medical records, imaging studies, laboratory results. 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
[2024-10-09] MEDS: BUMETANIDE INJ 20 MG in CONTAINER,EMPTY 50 ML 1 BAG 8 MG IV (15:11)
--- NOTE | 2024-10-09 16:41 | ESCONSULT_ITS ---
History of Present Illness Data of Consult Consult date: 10/09/24 Requesting Physician: Daren Das MD Primary Care Provider: Jad Lipscomb MD Consult Narrative Reason for consult: Acute on chronic renal insufficiency, edema History of present illness: Mr. Martinez is a 59-year-old morbidly obese gentleman who is well-known to me from my CKD clinic with extensive past medical history of diabetes, diabetic nephropathy, anasarca secondary to nephrotic syndrome, hypertension, COPD, obstructive sleep apnea, congestive heart failure (25 to 30% ejection fraction in 2021), status post defibrillator, stroke with residual lower extremity weakness mostly wheelchair-bound, osteoarthritis presented to the emergency department with significant lower extremity edema worse on the left side associated with erythema. Patient stated it started in one of his toes and rapidly spread to his lower extremity that his mom called paramedics and he was brought to the emergency department. His care provider is at bedside and he is the informant. Mom called me to inform his ER visit. Patient stated he has been becoming more and more short of breath recently and has been taking Lasix, metolazone with not much improvement in the edema. His urine output has been trending down. Last seen in my office April 2024. Patient goes to [facility]. His sample taker operator is in [place]. He denies any nausea, fevers, vomiting, bloody stools, burning sensation urination, headaches, or chest pain. In the emergency department patient was hypertensive. Chest x-ray showed fluid overload. EKG showed paced rhythm. Lower extremity CT showed severe cellulitis. Creatinine 1.7. BNP 1104. Patient was given 1 dose of Lasix. Decided to admit the patient for cellulitis intractable to medical management (patient was given cefuroxime as an outpatient) spoke to internal medicine resident-recommended to start him on Bumex drip with IV broad-spectrum antibiotics. Patient currently seen in the emergency department Labs and medications reviewed. Home medications included aspirin, Lipitor, carvedilol, cefuroxime, Flexeril, Farxiga, Tresiba, Humalog, losartan, metolazone, furosemide, potassium cc:: cc: Daren Das MD Review of Systems Review of Systems Narrative Review of Systems: CONSTITUTIONAL: Patient denies any fever, chills. Admits weight gain HEENT: Denies any visual disturbances or hearing problems. CARDIOVASCULAR: Patient denies any chest pain. Admits shortness of breath, swelling in the lower extremities. PULMONARY: Patient admits significant shortness of breath GASTROINTESTINAL: Patient denies any abdominal pain, constipation, nausea, vomiting, diarrhea. GENITOURINARY: Patient denies any urinary symptoms of burning or frequency or hematuria, denies any form in the urine. Decreased urination in the past few days SKIN: Extensive rash in the left leg worse than the right MUSCULOSKELETAL: Patient has lower extremity weakness and mostly wheelchair- bound NEUROLOGICAL: History of stroke PSYCHIATRIC: Denies any depression or anxiety. LYMPHATICS : No lymphadenopathy Past Medical History Past Medical History NEUROLOGIC: Positive Cerebrovascular Accident (left leg weakness) CARDIAC: Positive Cardiac Disorders (CHF), Myocardial Infarction, Hypercholesterolemia, Congestive Heart Failure, Cellulitis and Hypertension RESPIRATORY: Positive Chronic Obstructive Pulmonary Disease (COPD) (smoker); Negative Asthma GENITOURINARY: Positive Genitourinary Disorders (born 1 kidney) and Chronic Kidney Disease; Negative Renal Disease MUSCULOSKELETAL: Positive Arthritis ENDOCRINE: Positive Diabetes Mellitus Type 2; Negative Diabetes Mellitus Type 1 HEMATOLOGIC: Negative Sickle Cell Disease PSYCHO/SOCIAL: Positive Recreational Drug Use (methamphetimene) OTHER HISTORY: Positive Blood Transfusions Surgical History SURGICAL: Positive Cardiac Surgery and Pacemaker Social History SMOKING STATUS: Current every day smoker Meds Home Medications and Allergies Home Medications ?Medication ?Instructions ?Recorded ?Confirmed ?Type aspirin 81 mg tablet 81 mg PO QDAY 10/09/24 10/09/24 History atorvastatin 20 mg tablet 20 mg PO QPM 10/09/24 10/09/24 History carvedilol 12.5 mg tablet 12.5 mg PO BID 10/09/24 10/09/24 History cefuroxime axetil 500 mg tablet 500 mg PO Q12H 10/09/24 10/09/24 History cyclobenzaprine 10 mg tablet 10 mg PO HS PRN Muscle Spasm 10/09/24 10/09/24 History dapagliflozin propanediol 10 mg 10 mg PO QDAY 10/09/24 10/09/24 History tablet (Farxiga) insulin degludec 100 unit/mL (3 60 unit subcut DAILY 10/09/24 10/09/24 History mL) subcutaneous pen (Tresiba FlexTouch U-100 insulin) insulin lispro 100 unit/mL 5 unit subcut TID 10/09/24 10/09/24 History subcutaneous pen (Humalog KwikPen (U-100) Insulin) losartan 100 mg tablet 100 mg PO QDAY 10/09/24 10/09/24 History metolazone 5 mg tablet 5 mg PO DAILY 10/09/24 10/09/24 History potassium chloride 20 mEq 20 meq PO QDAY 10/09/24 10/09/24 History tablet,extended release Allergies Allergy/AdvReac Type Severity Reaction Status Date / Time No Known Allergies Allergy Unknown Verified 10/09/24 03:51 Exam Vital Signs Temp Pulse Resp BP Pulse Ox O2 Del Method 36.1 C 69 16 130/99 H 95 Room Air 10/10/24 08:00 10/10/24 09:10 10/10/24 09:10 10/10/24 08:38 10/10/24 08:00 10/10/24 08:00 Narrative Exam GENERAL APPEARANCE: Patient short of breath-sick looking. Morbidly obese gentleman currently seen in the emergency department sitting in a chair. NECK: Neck supple, no JVD or bruit CARDIOVASCULAR: Heart regular, no murmurs LUNGS/CHEST: Decreased breath sounds bilaterally. o auscultation. No rales, rhonchi, wheezing ABDOMEN: Soft, nontender, nondistended. No masses. Normal bowel sounds. EXTREMITIES: Extensive anasarca noted. SKIN: Significant cellulitic rash worse on the left leg extending all the way to the knee MUSCULOSKELETAL: In a chair-leg weakness noted PSYCHIATRIC: Normal mood, affect LYMPHATICS: No lymphadenopathy noted NEUROLOGICAL : Patient seems to have leg weakness Results Labs 10/10/24 05:16 10/10/24 05:16 Labs: Short CBC 10/10/24 Range/Units 05:16 WBC 8.8 (3.8-10.6) Thou/mm3 Hgb 14.7 (13.5-16.0) g/dL Hct 44.2 (41.0-53.0) % Plt Count 191 (140-440) Thou/mm3 BMP 10/10/24 05:16 Sodium 133 L Potassium 3.2 L D Chloride 94 L Carbon Dioxide 30.8 BUN 31 H Creatinine 1.8 H Glucose 193 H Calcium 9.1 Cardiac Enzymes 10/09/24 10/09/24 10/10/24 Range/Units 15:00 20:37 01:50 Troponin I 0.070 H* 0.080 H* 0.092 H* (0.0-0.045) ng/mL Liver Function 10/10/24 Range/Units 05:16 Total Bilirubin 0.8 (0.3-1.2) mg/dL AST 18 (0-34) U/L ALT 12 (10-49) U/L Alkaline Phosphatase 314 H D (46-116) U/L Albumin 3.7 (3.5-5.0) gm/dL Assessment & Plan Additional Assessment & Plan Additional Plan: Mr. Martinez is a 59-year-old gentleman presented with shortness of breath, lower extremity edema, left leg erythema 1. Acute on chronic kidney injury Patient most likely have nephrotic syndrome from longstanding poorly controlled diabetes. Urinalysis shows 3+ proteinuria. Urine protein/creatinine ordered. In 2022 noted to have absent left kidney. Repeat renal ultrasound. 2. Acute on chronic systolic CHF exacerbation ? Patient endorses methamphetamine abuse last usage 5d ago ? Found to have signs and symptoms of CHF exacerbation ? Echocardiogram noted EF 25 to 30%-2021. Patient follows up with a sample taker operator in [place]. He has a defibrillator. ? Patient continues to have crackles and BLE edema-recommended to start Bumex drip. 3. Extensive cellulitis of the left lower extremity-on broad-spectrum antibiotics. Blood cultures pending 4. Elevated troponin ? Denies any chest pain ? Likely related to CHF exacerbation 5. Type 2 diabetes mellitus ? Hemoglobin A1c 9.6 ? We will continue insulin 6. Hypertension ? will initiate NALLELY inhibitor's once kidney function improves 7. ++ methamphetamine abuse ? Patient states that last usage was a 5 days ago ? Counseled the patient on cessation and understands if he was to use again his heart will get worse and could lead to 8. Hypoxic respiratory failure-suspect patient has obstructive sleep apnea versus obesity hypoventilation. Will benefit from CPAP. Patient supposed to get CPAP at home. Overall long-term prognosis remains guarded. Thank you Dr. Das for allowing me to participate in the care of Mr. Martinez
[2024-10-09] MEDS: HYDROcodone/APAP 5/325 TABLET 1 TAB PO ×2 (16:45→21:17)
--- NOTE | 2024-10-09 17:28 | PC.NURSE ---
1200ml urine out put.
[2024-10-09] MEDS: INSULIN LISPRO (AdmeLOG) 1 UNIT/0.01 ML UNIT SC (17:31)
[2024-10-09 18:21] LABS: Creatinine,Random Urine 13 mg/dL (30-125); Protein Total, Random Urine 76 mg/dL (1-14)
[2024-10-09] MEDS: INSULIN GLARGINE (Lantus) 5 UNIT/0.05 ML (PER 5 UNITS) 10 UNIT SC (20:52)
[2024-10-09] MEDS: carVEDILOL 3.125 MG TABLET 6.25 MG PO (20:57)
[2024-10-09] MEDS: ATORVASTATIN CALCIUM 20 MG TABLET PO (20:57)
[2024-10-10] VITALS (12 sets, daily range): BP systolic 97–159; BP diastolic 74–100; PULSE 67–99; RESP 15–96; TEMP 36.1–36.9; O2SAT 94–95; BMI 37.1
[2024-10-10] MEDS: HYDROcodone/APAP 5/325 TABLET 1 TAB PO (01:08)
[2024-10-10 03:09] LABS: Troponin I 0.092 ng/mL (0.0-0.045)
--- NOTE | 2024-10-10 05:00 | PC.NURSE ---
Notified Dr. Castillo of patients legs reddened and right leg is red now too. He stated [place] didnt work and his pain is a 10. Dr. Castillo came to see patient and ordered a different antibiotic and increased pain med and educated patient on elevating legs in bed.
[2024-10-10] MEDS: DOXYCYCLINE INJ 100 MG in SODIUM CHLORIDE 0.9% (P) 100 ML IV (05:02)
[2024-10-10 05:50] LABS: Basophils % (Auto) 0 % (0-2.5); Eosinophils # (Auto) 0.1 Thou/mm3 (0.0-0.5); Eosinophils % (Auto) 1 % (0-10); Hematocrit 44.2 % (41.0-53.0); Hemoglobin 14.7 g/dL (13.5-16.0); Immature Granulocytes % (Auto) 0 % (0-0); Immature Granulocytes Auto 0.02 Thou/mm3 (0.00-0.00); Lymphocytes # (Auto) 1.2 Thou/mm3 (1.0-4.8); Lymphocytes % (Auto) 14 % (10-50); Mean Corpuscular HGB Conc 33.3 g/dl (31.0-37.0); Mean Corpuscular Hemoglobin 28.8 pg (25.0-35.0); Mean Corpuscular Volume 87 fL (80-100); Monocytes # (Auto) 0.9 Thou/mm3 (0.0-0.8); Monocytes % (Auto) 11 % (0-12); Neutrophils # (Auto) 6.5 Thou/mm3 (1.8-7.7); Neutrophils % (Auto) 74 % (37-80); Nucleated Red Blood Cell % 0 /100 WBC (0); Platelet Count 191 Thou/mm3 (140-440); RDW Standard Deviation 57.2 fL (35.1-43.9); Red Blood Count 5.11 Miln/mm3 (4.50-5.90); White Blood Count 8.8 Thou/mm3 (3.8-10.6)
[2024-10-10] MEDS: ceFAZolin/D5W 2 GM IV 2 GM/100 ML BAG IV ×3 (06:06→21:07)
[2024-10-10 06:08] LABS: Glucose Estimated Average 226 mg/dL (80-131); Hemoglobin A1C 9.5 % Hgb (4.8-6.0)
[2024-10-10 06:21] LABS: Alanine Aminotransferase 12 U/L (10-49); Albumin, Serum 3.7 gm/dL (3.5-5.0); Alkaline Phosphatase 314 U/L (46-116); Anion Gap 8 (7-16); Aspartate Amino Transferase 18 U/L (0-34); BUN/Creatinine Ratio 17 Ratio (12-20); Bilirubin,Total 0.8 mg/dL (0.3-1.2); Blood Urea Nitrogen 31 mg/dL (9-23); Calcium 9.1 mg/dL (8.3-10.6); Calcium (Corrected) 9.3 mg/dL (8.5-10.1); Carbon Dioxide 30.8 mMol/L (20.0-31.0); Chloride 94 mMol/L (98-107); Creatinine (Component) 1.8 mg/dL (0.6-1.3); Estimated Creatinine Clearance 60.9 mL/min (>60); Globulin 3.7 gm/dL (2.3-3.5); Glucose 193 mg/dL (74-106); Magnesium 1.9 mg/dL (1.6-2.6); Osmolality,Calculated 277 (275-295); Potassium 3.2 mMol/L (3.4-5.1); Sodium 133 mMol/L (136-145); Total Protein 7.4 gm/dL (5.7-8.2); eGFR 43 See Note
[2024-10-10] MEDS: INSULIN LISPRO (AdmeLOG) 1 UNIT/0.01 ML UNIT SC ×3 (07:36→17:09)
[2024-10-10] MEDS: HYDROcodone/APAP 5/325 TABLET 2 TAB PO ×3 (07:47→21:07)
[2024-10-10] MEDS: carVEDILOL 3.125 MG TABLET 6.25 MG PO ×2 (08:36→20:05)
[2024-10-10] MEDS: MAGNESIUM OXIDE 400 MG TABLET PO (08:36)
[2024-10-10] MEDS: POTASSIUM CHLORIDE 20 mEq TABCR 40 MEQ PO (08:36)
[2024-10-10] MEDS: ASPIRIN EC 81 MG TABEC PO (08:37)
[2024-10-10] MEDS: PANTOPRAZOLE 40 MG TABLET PO (08:37)
[2024-10-10] MEDS: ENOXAPARIN SOD INJ 40 MG/0.4 ML SYRINGE SC (08:37)
[2024-10-10] MEDS: BUMETANIDE INJ 0.25 MG/ML VIAL 4 ML 2 MG IVP ×2 (08:38→20:04)
--- NOTE | 2024-10-10 09:50 | XR_ITS ---
Examination: Retroperitoneal ultrasound, complete Technique: Multiple high resolution grayscale images of the retroperitoneum obtained, including kidneys and bladder. Exam date and time:October 10, 2024 1046 hrs. Indications: History acute renal insufficiency, history absent left kidney Findings: Right kidney 13.1 x 8.6 x 8.5 cm cortex 2.9 cm Mild renal parenchymal scar formation No left kidney visualized No bladder mass or bladder calculi Bladder prevoid by 91 cc, unable to void Impression: Mild right renal parenchymal scar formation, no hydronephrosis Absent left kidney
--- NOTE | 2024-10-10 09:54 | PD.NEPHPROG ---
Documentation for date of: 10/10/24 Subjective Subjective Interval history: Mr. Martinez is a 59-year-old morbidly obese gentleman who is well-known to me from my CKD clinic with extensive past medical history of diabetes, diabetic nephropathy, anasarca secondary to nephrotic syndrome, hypertension, COPD, obstructive sleep apnea, congestive heart failure (25 to 30% ejection fraction in 2021), status post defibrillator, stroke with residual lower extremity weakness -able to walk a little bit, osteoarthritis presented to the emergency department with significant lower extremity edema worse on the left side associated with erythema. Patient stated it started in one of his toes and rapidly spread to his lower extremity that his mom called paramedics and he was brought to the emergency department. His care provider is at bedside and he is the informant. Mom called me to inform his ER visit. Patient stated he has been becoming more and more short of breath recently and has been taking Lasix, metolazone with not much improvement in the edema. His urine output has been trending down. Last seen in my office April 2024. Patient goes to [facility]. His behavioral analyst is in [place]. He denies any nausea, fevers, vomiting, bloody stools, burning sensation urination, headaches, or chest pain. In the emergency department patient was hypertensive. Chest x-ray showed fluid overload. EKG showed paced rhythm. Lower extremity CT showed severe cellulitis. Creatinine 1.7. BNP 1104. Patient was given 1 dose of Lasix. Decided to admit the patient for cellulitis intractable to medical management (patient was given cefuroxime as an outpatient) spoke to internal medicine resident-recommended to start him on Bumex drip with IV broad-spectrum antibiotics. Patient currently seen in the emergency department Labs and medications reviewed. Home medications included aspirin, Lipitor, carvedilol, cefuroxime, Flexeril, Farxiga, Tresiba, Humalog, losartan, metolazone, furosemide, potassium 10/10/2024 patient currently seen in telemetry. He made a 6 L with Bumex drip. Team switched him to IV Bumex twice daily. Mother at bedside. Edema still present. Erythema in the right lower extremity tad better. Currently on vancomycin. Labs, medications reviewed. Review of Systems Review of Systems Narrative Review of Systems: CONSTITUTIONAL: Patient denies any fever, chills. Admits weight gain HEENT: Denies any visual disturbances or hearing problems. CARDIOVASCULAR: Patient denies any chest pain. Admits shortness of breath, swelling in the lower extremities. PULMONARY: Patient admits significant shortness of breath GASTROINTESTINAL: Patient denies any abdominal pain, constipation, nausea, vomiting, diarrhea. GENITOURINARY: Patient denies any urinary symptoms of burning or frequency or hematuria, denies any form in the urine. Decreased urination in the past few days SKIN: Extensive rash in the left leg worse than the right MUSCULOSKELETAL: Patient has lower extremity weakness and mostly wheelchair-bound NEUROLOGICAL: History of stroke PSYCHIATRIC: Denies any depression or anxiety. LYMPHATICS : No lymphadenopathy Exam Vital Signs Temp Pulse Resp BP Pulse Ox O2 Del Method 36.1 C 69 16 130/99 H 95 Room Air 10/10/24 08:00 10/10/24 09:10 10/10/24 09:10 10/10/24 08:38 10/10/24 08:00 10/10/24 08:00 Narrative Exam GENERAL APPEARANCE: Patient short of breath-sick looking. Morbidly obese gentleman currently seen in the telemetry. NECK: Neck supple, no JVD or bruit CARDIOVASCULAR: Heart regular, no murmurs LUNGS/CHEST: Decreased breath sounds bilaterally. Clear to auscultation. No rales, rhonchi, wheezing ABDOMEN: Soft, nontender, nondistended. No masses. Normal bowel sounds. EXTREMITIES: Extensive anasarca noted. SKIN: Significant cellulitic rash worse on the left leg extending all the way to the knee MUSCULOSKELETAL: In a chair-leg weakness noted PSYCHIATRIC: Normal mood, affect LYMPHATICS: No lymphadenopathy noted NEUROLOGICAL : Patient seems to have leg weakness Objective Labs 10/11/24 02:43 10/11/24 02:43 Labs: Laboratory Results - last 24 hr 10/09/24 10/09/24 10/09/24 15:00 17:20 20:37 WBC RBC Hgb Hct MCV MCH MCHC RDW Std Deviation Plt Count Neut % (Auto) Lymph % (Auto) Christian % (Auto) Eos % (Auto) Baso % (Auto) Neut # (Auto) Lymph # (Auto) Christian # (Auto) Eos # (Auto) Baso # (Auto) Immature Gran # (Auto) Absolute Nucleated RBC Immature Gran % Nucleated RBC % Sodium Potassium Chloride Carbon Dioxide Anion Gap BUN Creatinine Estim Creat Clear Calc eGFR BUN/Creatinine Ratio Glucose Estimated Ave Glu mg/dL Hemoglobin A1c Calculated Osmolality Calcium Corrected Calcium Magnesium Total Bilirubin AST ALT Alkaline Phosphatase Troponin I 0.070 H* 0.080 H* Total Protein Albumin Globulin Albumin/Globulin Ratio Ur Random Creatinine 13 L U Random Total Protein 76 H 10/10/24 10/10/24 01:50 05:16 WBC 8.8 RBC 5.11 Hgb 14.7 Hct 44.2 MCV 87 MCH 28.8 MCHC 33.3 RDW Std Deviation 57.2 H Plt Count 191 Neut % (Auto) 74 Lymph % (Auto) 14 Christian % (Auto) 11 Eos % (Auto) 1 Baso % (Auto) 0 Neut # (Auto) 6.5 Lymph # (Auto) 1.2 Christian # (Auto) 0.9 H Eos # (Auto) 0.1 Baso # (Auto) 0.0 Immature Gran # (Auto) 0.02 H Absolute Nucleated RBC 0.00 Immature Gran % 0 Nucleated RBC % 0 Sodium 133 L Potassium 3.2 L D Chloride 94 L Carbon Dioxide 30.8 Anion Gap 8 BUN 31 H Creatinine 1.8 H Estim Creat Clear Calc 60.9 L eGFR 43 L BUN/Creatinine Ratio [address] Glu mg/dL 226 H Hemoglobin A1c 9.5 H Calculated Osmolality 277 Calcium 9.1 Corrected Calcium 9.3 Magnesium 1.9 Total Bilirubin 0.8 AST 18 ALT 12 Alkaline Phosphatase 314 H D Troponin I 0.092 H* Total Protein 7.4 Albumin 3.7 Globulin 3.7 H Albumin/Globulin Ratio 1.0 L Ur Random Creatinine U Random Total Protein Assessment & Plan Additional Assessment & Plan Additional Plan: Mr. Martinez is a 59-year-old gentleman presented with shortness of breath, lower extremity edema, left leg erythema 1. Acute on chronic kidney injury Patient most likely have nephrotic syndrome from longstanding poorly controlled diabetes. Urinalysis shows 3+ proteinuria. Urine protein/creatinine showed a 5.6 g consistent with nephrotic range proteinuria. Patient had a left renal agenesis. Repeat renal ultrasound done today. 2. Acute on chronic systolic CHF exacerbation ? Patient endorses methamphetamine abuse last usage 5d ago ? Found to have signs and symptoms of CHF exacerbation ? Echocardiogram noted EF 25 to 30%-2021. Patient follows up with a behavioral analyst in [place]. He has a defibrillator. ? Patient continues to have crackles and BLE edema-continue with IV Bumex. 3. Extensive cellulitis of the left lower extremity-on broad-spectrum antibiotics. Blood cultures so far negative. Vanco was added. Will monitor renal function closely. 4. Elevated troponin ? Denies any chest pain ? Likely related to CHF exacerbation 5. Type 2 diabetes mellitus ? Hemoglobin A1c 9.6 ? We will continue insulin 6. Hypertension ? will initiate NALLELY inhibitor's once kidney function improves 7. ++ methamphetamine abuse ? Patient states that last usage was a 5 days ago ? Counseled the patient on cessation and understands if he was to use again his heart will get worse and could lead to 8. Hypoxic respiratory failure-suspect patient has obstructive sleep apnea versus obesity hypoventilation. Will benefit from CPAP. Patient supposed to get CPAP at home. Overall long-term prognosis remains guarded. Plan of care discussed with Dr. Arora.
--- NOTE | 2024-10-10 10:01 | XR_ITS ---
Examination: Venous duplex lower extremity sonogram, bilateral. Date and time of exam: October 10, 2024 1059 hrs. Indications: Bilateral leg redness swelling and pain beginning 2 weeks ago, foot fracture 3 months ago history Technique: Multiple sonographic images of the deep venous system have been obtained. B-mode/2-D grayscale imaging of vascular structures and Doppler spectral analysis (waveforms) and color performed Both legs are examined. Findings: Deep venous systems do not demonstrate abnormal echogenicity. All visualized deep veins exhibit compressibility. All visualized deep veins exhibit augmentation. Impression: Negative for deep vein thrombosis
[2024-10-10 10:07] LABS: Troponin I 0.097 ng/mL (0.0-0.045)
--- NOTE | 2024-10-10 10:18 | PD.RESPRO ---
Documentation for date of: 10/10/24 Subjective Subjective Interval history: Patient was seen at bedside this morning. No overnight events. Patient's blood culture has been negative in the first 24 hours. Patient had total balance of -6 L in the past 24 hours. Will transition to Bumex 2 mg twice daily. Added vancomycin to patient's antibiotic regimen and ordered MRSA nasal screen as patient's lower extremities were a lot more erythematous today, but improved in the afternoon therefore gave only 1 dose of Vanco and placed Doxycycline back. Also ordered ultrasound venous Doppler of bilateral lower extremities for any DVT. Swelling has improved, but patient still has 2+ edema from bilateral lower extremities up to mid lower back and abdomen. No other complaints at this time. Exam Vital Signs Temp Pulse Resp BP Pulse Ox O2 Del Method 96.9 F 69 16 130/99 H 95 Room Air 10/10/24 08:00 10/10/24 09:10 10/10/24 09:10 10/10/24 08:38 10/10/24 08:00 10/10/24 08:00 Narrative Exam General: A/O x3, no acute distress, obese Eyes: PERRL, EOMI. Anicteric, vision grossly intact. Ears: No ear pain, no ear discharge, Hearing grossly intact. Nose: No nasal discharge. Mouth/Throat: Moist mucous membranes, no redness, no lesions. Neck: Neck supple, non-tender, no cervical lymphadenopathy. Lungs: Clear SUKHDEEP to auscultation and percussion, No accessory muscle use. Cardio: Normal S1/S2, regular rhythm, no murmurs, no JVD Abdomen: Soft, non-tender, no palpable masses, peristalsis present, no guarding or rebound. Extremities: Symmetrical, no significant deformities, 2+ edema from SUKHDEEP LE upto mid/lower back/abdomen, non-tender, peripheral pulses difficult to palpate due to edema. Skin: No rashes, no lesions, warm to touch. Eryhtema in L LE more pronounced than R LE, worsened today and upto mid thigh, but improved by afternoon. Neuro: No focal neurological deficits. motor and sensory intact, mild decrease in L LE strength when compared to R LE Psych: Cooperative, appropriate mood and effect. Objective Labs 10/12/24 04:45 10/12/24 04:45 Labs: Laboratory Results - last 24 hr 10/09/24 10/09/24 10/09/24 15:00 17:20 20:37 WBC RBC Hgb Hct MCV MCH MCHC RDW Std Deviation Plt Count Neut % (Auto) Lymph % (Auto) [place] % (Auto) Eos % (Auto) Baso % (Auto) Neut # (Auto) Lymph # (Auto) [place] # (Auto) Eos # (Auto) Baso # (Auto) Immature Gran # (Auto) Absolute Nucleated RBC Immature Gran % Nucleated RBC % Sodium Potassium Chloride Carbon Dioxide Anion Gap BUN Creatinine Estim Creat Clear Calc eGFR BUN/Creatinine Ratio Glucose Estimated Ave Glu mg/dL Hemoglobin A1c Calculated Osmolality Calcium Corrected Calcium Magnesium Total Bilirubin AST ALT Alkaline Phosphatase Troponin I 0.070 H* 0.080 H* Total Protein Albumin Globulin Albumin/Globulin Ratio Ur Random Creatinine 13 L U Random Total Protein 76 H 10/10/24 10/10/24 10/10/24 01:50 05:16 08:41 WBC 8.8 RBC 5.11 Hgb 14.7 Hct 44.2 MCV 87 MCH 28.8 MCHC 33.3 RDW Std Deviation 57.2 H Plt Count 191 Neut % (Auto) 74 Lymph % (Auto) 14 [place] % (Auto) 11 Eos % (Auto) 1 Baso % (Auto) 0 Neut # (Auto) 6.5 Lymph # (Auto) 1.2 [place] # (Auto) 0.9 H Eos # (Auto) 0.1 Baso # (Auto) 0.0 Immature Gran # (Auto) 0.02 H Absolute Nucleated RBC 0.00 Immature Gran % 0 Nucleated RBC % 0 Sodium 133 L Potassium 3.2 L D Chloride 94 L Carbon Dioxide 30.8 Anion Gap 8 BUN 31 H Creatinine 1.8 H Estim Creat Clear Calc 60.9 L eGFR 43 L BUN/Creatinine Ratio 17 [address] Glu mg/dL 226 H Hemoglobin A1c 9.5 H Calculated Osmolality 277 Calcium 9.1 Corrected Calcium 9.3 Magnesium 1.9 Total Bilirubin 0.8 AST 18 ALT 12 Alkaline Phosphatase 314 H D Troponin I 0.092 H* 0.097 H* Total Protein 7.4 Albumin 3.7 Globulin 3.7 H Albumin/Globulin Ratio 1.0 L Ur Random Creatinine U Random Total Protein Quality Measures Quality Measures none Assessment & Plan Assessment Current Active Medications: Generic Name Dose Route Start Last Admin Trade Name Freq PRN Reason Stop Dose Admin Acetaminophen 650 mg 10/09/24 14:02 Acetaminophen 325 Mg Tablet PO 11/08/24 14:01 Q6H PRN pain and Fever >100.4 Hydrocodone Bitart/Acetaminophen 2 tab 10/10/24 04:51 10/10/24 07:47 Hydrocodone/Apap 5/325 Tablet PO 10/14/24 14:01 2 tab Q4HR PRN Administration Pain Scale 4-6 Atorvastatin Calcium 20 mg 10/09/24 21:00 10/09/24 20:57 Atorvastatin Calcium 20 Mg Tablet PO 11/08/24 20:59 20 mg HS DELFINA Administration Bumetanide 2 mg 10/10/24 09:00 10/10/24 08:38 Bumetanide Inj 0.25 Mg/Ml Vial 4 Ml IVP 11/09/24 08:59 2 mg BID DELFINA Administration Carvedilol 6.25 mg 10/09/24 21:00 10/10/24 08:36 Carvedilol 3.125 Mg Tablet PO 11/08/24 20:59 6.25 mg BID DELFINA Administration Dextrose 25 ml 10/09/24 14:07 Dextrose 50%-Water Inj 50 Ml Syringe IV 11/08/24 14:06 Q15MIN PRN BG 50-70 responsive npo pt Dextrose 50 ml 10/09/24 14:07 Dextrose 50%-Water Inj 50 Ml Syringe IV 11/08/24 14:06 Q15MIN PRN BG <50 OR BG <70 & pt unresponsive Enoxaparin Sodium 40 mg 10/10/24 09:00 10/10/24 08:37 Enoxaparin Sod Inj 40 Mg/0.4 Ml Syringe SC 10/24/24 08:59 40 mg QDAY DELFINA Administration Glucagon 1 mg 10/09/24 14:07 Glucagon Inj 1 Mg Vial IM Q15MIN PRN BG <70, and no IV access Cefazolin Sodium 2 gm in 100 mls @ 100 mls/hr 10/09/24 14:11 10/10/24 06:06 Ancef 2gm Ivpb IV 10/16/24 14:10 100 mls/hr Q8HR DELFINA Administration Vancomycin/Sodium Chloride 200 mls @ 120 mls/hr 10/10/24 10:15 Vancomycin/Ns 1 Gm Ivpb IV 10/17/24 10:14 Q12H DELFINA Insulin Glargine 10 unit 10/09/24 21:00 10/09/24 20:52 Insulin Glargine (Lantus) 5 Unit/0.05 Ml (Per 5 Units) SC 11/08/24 20:59 10 unit HS COUNT INCLUDES THE [facility] Administration Insulin Human Lispro 0 unit 10/10/24 08:28 Insulin Lispro (Admelog) 1 Unit/0.01 Ml Unit SC 11/08/24 16:59 AC DELFINA Protocol Melatonin 3 mg 10/10/24 04:55 10/10/24 05:43 Melatonin 3 Mg Tablet PO 11/09/24 04:54 Not Given HS COUNT INCLUDES THE [facility] Ondansetron HCl 4 mg 10/09/24 14:02 Ondansetron Inj 2 Mg/Ml Inj 2 Ml IV 11/08/24 14:01 Q6H PRN NAUSEA OR VOMITING Protocol Pantoprazole Sodium 40 mg 10/10/24 09:00 10/10/24 08:37 Pantoprazole 40 Mg Tablet PO 11/09/24 08:59 40 mg QDAY DELFINA Administration Pharmacy Consult 1 each 10/10/24 10:00 Vancomycin Pharmacy To Dose 1 Each Each IV 11/09/24 09:59 QDAY PRN CONSULT Plan 59-year-old male with past medical history of COPD, morbid obesity, hypertension, HFrEF (25 to 30% on 2021) s/p defibrillator, IDDM, 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 #Anasarca likely secondary to #Acute decompensated heart failure exacerbation (EF 25 to 30% on 2021) #Hx of HFrEF (25 to 30% EF on 2021) s/p defibrillator ?Patient states that he has been having increased shortness of breath walking short distances as well as while laying flat. ?Patient has 2+ edema from lower extremities up to mid lower back and abdomen as well as 1+ bilateral upper extremity edema. ? Initial BNP was 1104 ? Last echo on file was in 2021 and showed EF of 25 to 30% ?Arterial ultrasound of bilateral lower extremities did not show concerns for PAD. - Total balance of -6L in last 24 hrs Plan: ? Bumex drip at 2 mg BID ?Echo ordered, pending ? Fluid restriction 1500 ?Daily weights ? Strict ROS's ?Low-sodium diet ? Will continue to monitor #LUDY on CKD stage IIIa ?Patient has a history of IDDM which is most likely be causing some diabetic nephropathy ?DDx diabetic nephropathy versus LUDY due to fluid overload status ?Patient's baseline creatinine is around 1.4-1.5 ? Patient came in with creatinine of 1.7, today 1.8 Plan: ? Continue diuresis ?Avoid nephrotoxic agents ? Renal dose medications ? Nephrology consulted, pursue recommendations #Left lower extremity cellulitis ? Patient states that for the past week he has noticed his left lower extremity to become swollen and red. -DDx cellulitis vs Erysipelas ?Patient denies any trauma -Blood cultures negative in first 24 hrs. Plan: ? Ancef 2 g every 8 hours [10/09/2024-] -Continue Doxycycline 100 mg BID [10/10/2024-] -Added Vancomycin qday for MRSA coverage x1 [10/10/2024] -Ordered Venous doppler Sukhdeep LE ? Blood cultures ordered ? Will continue to monitor #NSTEMI likely type II ? Troponins were elevated at 0.079 ? This is most likely in the setting of heart failure exacerbation ?EKG did not show any ST changes -Troponins uptrending 0.097 now -No chest pain Plan: ? Trend troponins ? Will continue to monitor #IDDM #Peripheral neuropathy ? Last A1c on 04/2024 was 12% ?A1c 9.5% 09/2024 Plan: -Glargine 14 U HS ? ISS ? Accu-Cheks and hypoglycemia protocol ordered ? 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 Diet: Cardiac, renal, carb consistent GI prophylaxis: protonix DVT prophylaxis: lovenox Code: DNR/DNI Case disclosed with Attending Dr. Garrido and my senior Dr. Ovalle PGY2 Arian Page PGY1 Senior Resident Attestation: The patient is a 59-year-old male with significant past medical history of COPD, morbid obesity, HFrEF 25 to 30% on 2021, s/p defibrillator, IDDM, hypertension, CVA in 2022 with residual left lower extremity weakness, neuropathy, arthritis and renal agenesis was admitted to hospital for bilateral lower limb cellulitis and anasarca secondary to fluid overload in the setting of CHF exacerbation. Overnight, patient had total negative fluid balance of 6 L, and was not Bumex drip. This morning he reported doing well. He denies any SOB, chest pain or fever/chills. His vitals have been fairly stable. Labs were significant for mild hypokalemia and troponin finally down trended after peaking at 0.097. Urine random creatinine was 13 and protein was 76 significant for diabetic nephropathy. Will continue to diurese him with IV Bumex 2 mg twice daily. He was given 1 dose of IV vancomycin, and after that started on doxycycline 100 Mg twice daily. Will continue with cefazolin 2 g every 8 hourly. We will increase the dose of Lantus to 14 Units at night. I discussed with and supervised the business analytics intern physician involved in the care of this patient. I personally saw and examined the patient and discussed the assessment and plan with the entire medicine team, including my attending. I agree with the assessment and plan as documented above. Tejas Ovalle MD PGY2 Internal Medicine Attending Provider Attestation/Addendum I attest that I was physically present for the evaluation, physical examination, lab and imaging review of the patient with the residents. I discussed the case with the residents and agree with the findings and plans of care as documented above. Maite Garrido MD
[2024-10-10] MEDS: VANCOMYCIN/NS 1 GM IVPB 200 ML IV (10:58)
[2024-10-10 14:45] LABS: Troponin I 0.088 ng/mL (0.0-0.045)
--- NOTE | 2024-10-10 15:08 | PC.SS ---
SS met with patient regarding his d/c plan. Pt is alert/oriented. Pt was admitted for CHF Exacerbation, Cellulitis, LUDY. Pt confirmed demographic and contact information is correct on facesheet. Pt resides with mom. Pt ambulates using a cane. Pt requires assistance with all ADLs. Pt states he has a caregiver 72 hours a week from [facility]. Patient?s pharmacy of choice is [facility] [address]. Pt named his mom, Heidi Martinez medical decision maker if he is unable. Patient?s choice is to return home upon d/c. Pt states he followed up with PCP Oct 07, 2024. D/C plan: Return home Next of Kin: Heidicaroline Martinez, mom, phone# [phone] PCP: Dr. Jad Lipscomb from [facility] Address: Correct on facesheet
[2024-10-10] MEDS: ATORVASTATIN CALCIUM 20 MG TABLET PO (20:05)
[2024-10-10] MEDS: DOXYCYCLINE 100 MG TABLET PO (20:05)
[2024-10-10] MEDS: INSULIN GLARGINE (Lantus) 5 UNIT/0.05 ML (PER 5 UNITS) 14 UNIT SC (20:11)
[2024-10-10] MEDS: MELATONIN 3 MG TABLET PO (21:19)
[2024-10-10 21:21] LABS: Troponin I 0.092 ng/mL (0.0-0.045)
[2024-10-11] VITALS (10 sets, daily range): BP systolic 123–152; BP diastolic 80–105; PULSE 70–93; RESP 12–94; TEMP 35.9–36.5; O2SAT 92–96; BMI 36.8
[2024-10-11] MEDS: HYDROcodone/APAP 5/325 TABLET 2 TAB PO (01:44)
--- NOTE | 2024-10-11 02:11 | EKG_ITS ---
[facility] Test Date: 2024-10-11 Pat Name: NOELLE BRITO [facility] Gender: Male Surveillance Dual Rate Officer: IRAM : 1965 Requested By: Landon Inman Order Number: [id number] Reading MD: Landon Inman Measurements Intervals [place] Rate: 78 P: 55 FL: 185 QRS: 260 QRSD: 166 T: 80 QT: 448 QTc: 513 Interpretive Statements ELECTRONIC VENTRICULAR PACEMAKER ABNORMAL RHYTHM ECG Compared to ECG 10/09/2024 04:18:08 No significant changes /store/S0/[id number]
--- NOTE | 2024-10-11 02:43 | PC.NURSE ---
MD Inman notified that pt experiencing frequent PVC, and couplets. ECG, labs ordered.
[2024-10-11 03:12] LABS: Basophils % (Auto) 0 % (0-2.5); Eosinophils # (Auto) 0.1 Thou/mm3 (0.0-0.5); Eosinophils % (Auto) 2 % (0-10); Hematocrit 44.1 % (41.0-53.0); Hemoglobin 14.7 g/dL (13.5-16.0); Immature Granulocytes % (Auto) 1 % (0-0); Immature Granulocytes Auto 0.04 Thou/mm3 (0.00-0.00); Lymphocytes # (Auto) 1.5 Thou/mm3 (1.0-4.8); Lymphocytes % (Auto) 19 % (10-50); Mean Corpuscular HGB Conc 33.3 g/dl (31.0-37.0); Mean Corpuscular Hemoglobin 29.1 pg (25.0-35.0); Mean Corpuscular Volume 87 fL (80-100); Monocytes % (Auto) 13 % (0-12); Neutrophils # (Auto) 5.3 Thou/mm3 (1.8-7.7); Neutrophils % (Auto) 66 % (37-80); Nucleated Red Blood Cell % 0 /100 WBC (0); Platelet Count 209 Thou/mm3 (140-440); RDW Standard Deviation 57.9 fL (35.1-43.9); Red Blood Count 5.05 Miln/mm3 (4.50-5.90); White Blood Count 8.1 Thou/mm3 (3.8-10.6)
[2024-10-11 04:01] LABS: Alanine Aminotransferase < 7 U/L (10-49); Albumin, Serum 3.6 gm/dL (3.5-5.0); Alkaline Phosphatase 283 U/L (46-116); Anion Gap 7 (7-16); Aspartate Amino Transferase 15 U/L (0-34); BUN/Creatinine Ratio 18 Ratio (12-20); Bilirubin,Total 0.8 mg/dL (0.3-1.2); Blood Urea Nitrogen 35 mg/dL (9-23); Calcium 8.8 mg/dL (8.3-10.6); Calcium (Corrected) 9.1 mg/dL (8.5-10.1); Carbon Dioxide 33.3 mMol/L (20.0-31.0); Chloride 92 mMol/L (98-107); Globulin 3.7 gm/dL (2.3-3.5); Glucose 174 mg/dL (74-106); Magnesium 1.9 mg/dL (1.6-2.6); Osmolality,Calculated 276 (275-295); Phosphorous 5.1 mg/dL (2.4-5.1); Potassium 3.4 mMol/L (3.4-5.1); Sodium 132 mMol/L (136-145); Total Protein 7.3 gm/dL (5.7-8.2); eGFR 38 See Note
[2024-10-11] MEDS: POTASSIUM CHLORIDE 20 mEq TABCR 40 MEQ PO ×2 (05:15→10:50)
[2024-10-11] MEDS: ceFAZolin/D5W 2 GM IV 2 GM/100 ML BAG IV ×3 (05:15→21:04)
[2024-10-11] MEDS: Magnesium Sulfate 2 GM Ivpb 2 GM/50 ML BAG IV ×2 (05:15→10:50)
[2024-10-11] MEDS: ENOXAPARIN SOD INJ 40 MG/0.4 ML SYRINGE SC (09:15)
[2024-10-11] MEDS: BUMETANIDE INJ 0.25 MG/ML VIAL 4 ML 2 MG IVP ×2 (09:15→20:11)
[2024-10-11] MEDS: carVEDILOL 3.125 MG TABLET 6.25 MG PO ×2 (09:15→20:12)
[2024-10-11] MEDS: INSULIN LISPRO (AdmeLOG) 1 UNIT/0.01 ML UNIT SC ×3 (09:16→16:52)
[2024-10-11] MEDS: ASPIRIN EC 81 MG TABEC PO (09:16)
[2024-10-11] MEDS: DOXYCYCLINE 100 MG TABLET PO ×2 (09:16→20:13)
[2024-10-11] MEDS: PANTOPRAZOLE 40 MG TABLET PO (09:19)
--- NOTE | 2024-10-11 09:30 | PD.RESPRO ---
Documentation for date of: 10/11/24 Subjective Subjective Interval history: Patient seen at bedside this morning. Overnight patient had episode of bradycardia during which an EKG was ordered and showed a ventricular paced rhythm with some ectopic beats. Patient's potassium magnesium was repleted. At this time patient was asymptomatic as well as this morning he is not having any chest pain, palpitation, or shortness of breath. Patient had total negative balance of 1.5 L in the past 24 hours. Patient's anasarca has significantly improved, but there is still significant swelling on bilateral lower extremities. Patient did not spike any fevers and diabetes are downtrending. Venous ultrasound was negative for DVT. Echo is still pending. No other complaints at this time. Exam Vital Signs Temp Pulse Resp BP Pulse Ox O2 Del Method 96.6 F L 70 16 142/98 H 93 L Room Air 10/11/24 08:00 10/11/24 09:15 10/11/24 08:00 10/11/24 09:15 10/11/24 08:00 10/11/24 08:00 Narrative Exam General: A/O x3, no acute distress, obese Eyes: PERRL, EOMI. Anicteric, vision grossly intact. Ears: No ear pain, no ear discharge, Hearing grossly intact. Nose: No nasal discharge. Mouth/Throat: Moist mucous membranes, no redness, no lesions. Neck: Neck supple, non-tender, no cervical lymphadenopathy. Lungs: Clear SUKHDEEP to auscultation and percussion, No accessory muscle use. Cardio: Normal S1/S2, regular rhythm, no murmurs, no JVD Abdomen: Soft, non-tender, no palpable masses, peristalsis present, no guarding or rebound. Extremities: Symmetrical, no significant deformities, 2+ edema from SUKHDEEP LE upto lower thigh and 1+ in mid lower back/abdomen, non-tender, peripheral pulses difficult to palpate due to edema. Skin: No rashes, no lesions, warm to touch. Eryhtema in L LE more pronounced than R LE, improved from yesterday. Neuro: No focal neurological deficits. motor and sensory intact, mild decrease in L LE strength when compared to R LE Psych: Cooperative, appropriate mood and effect. Objective Labs 10/12/24 04:45 10/12/24 04:45 Labs: Laboratory Results - last 24 hr 10/10/24 10/10/24 10/10/24 08:41 13:51 20:25 WBC RBC Hgb Hct MCV MCH MCHC RDW Std Deviation Plt Count Neut % (Auto) Lymph % (Auto) [place] % (Auto) Eos % (Auto) Baso % (Auto) Neut # (Auto) Lymph # (Auto) [place] # (Auto) Eos # (Auto) Baso # (Auto) Immature Gran # (Auto) Absolute Nucleated RBC Immature Gran % Nucleated RBC % Sodium Potassium Chloride Carbon Dioxide Anion Gap BUN Creatinine Estim Creat Clear Calc eGFR BUN/Creatinine Ratio Glucose Calculated Osmolality Calcium Corrected Calcium Phosphorus Magnesium Total Bilirubin AST ALT Alkaline Phosphatase Troponin I 0.097 H* 0.088 H* 0.092 H* Total Protein Albumin Globulin Albumin/Globulin Ratio 10/11/24 02:43 WBC 8.1 RBC 5.05 Hgb 14.7 Hct 44.1 MCV 87 MCH 29.1 MCHC 33.3 RDW Std Deviation 57.9 H Plt Count 209 Neut % (Auto) 66 Lymph % (Auto) 19 [place] % (Auto) 13 H Eos % (Auto) 2 Baso % (Auto) 0 Neut # (Auto) 5.3 Lymph # (Auto) 1.5 [place] # (Auto) 1.0 H Eos # (Auto) 0.1 Baso # (Auto) 0.0 Immature Gran # (Auto) 0.04 H Absolute Nucleated RBC 0.00 Immature Gran % 1 H Nucleated RBC % 0 Sodium 132 L Potassium 3.4 Chloride 92 L Carbon Dioxide 33.3 H Anion Gap 7 BUN 35 H Creatinine 2.0 H Estim Creat Clear Calc 55.0 L eGFR 38 L BUN/Creatinine Ratio 18 Glucose 174 H Calculated Osmolality 276 Calcium 8.8 Corrected Calcium 9.1 Phosphorus 5.1 Magnesium 1.9 Total Bilirubin 0.8 AST 15 ALT < 7 L Alkaline Phosphatase 283 H D Troponin I Total Protein 7.3 Albumin 3.6 Globulin 3.7 H Albumin/Globulin Ratio 1.0 L Quality Measures Quality Measures none Assessment & Plan Assessment Current Active Medications: Generic Name Dose Route Start Last Admin Trade Name Freq PRN Reason Stop Dose Admin Acetaminophen 650 mg 10/10/24 12:55 Acetaminophen 325 Mg Tablet PO 11/08/24 14:01 Q6H PRN pain(1-3) and Fever >100.4 Hydrocodone Bitart/Acetaminophen 2 tab 10/10/24 04:51 10/11/24 01:44 Hydrocodone/Apap 5/325 Tablet PO 10/14/24 14:01 2 tab Q4HR PRN Administration Pain Scale 4-6 Aspirin 81 mg 10/11/24 09:00 10/11/24 09:16 Aspirin Ec 81 Mg Tabec PO 11/10/24 08:59 81 mg QDAY DELFINA Administration Atorvastatin Calcium 20 mg 10/09/24 21:00 10/10/24 20:05 Atorvastatin Calcium 20 Mg Tablet PO 11/08/24 20:59 20 mg HS DELFINA Administration Bumetanide 2 mg 10/10/24 09:00 10/11/24 09:15 Bumetanide Inj 0.25 Mg/Ml Vial 4 Ml IVP 11/09/24 08:59 2 mg BID DELFINA Administration Carvedilol 6.25 mg 10/09/24 21:00 10/11/24 09:15 Carvedilol 3.125 Mg Tablet PO 11/08/24 20:59 6.25 mg BID DELFINA Administration Dextrose 25 ml 10/09/24 14:07 Dextrose 50%-Water Inj 50 Ml Syringe IV 11/08/24 14:06 Q15MIN PRN BG 50-70 responsive npo pt Dextrose 50 ml 10/09/24 14:07 Dextrose 50%-Water Inj 50 Ml Syringe IV 11/08/24 14:06 Q15MIN PRN BG <50 OR BG <70 & pt unresponsive Doxycycline Hyclate 100 mg 10/10/24 21:00 10/11/24 09:16 Doxycycline 100 Mg Tablet PO 10/17/24 20:59 100 mg BID DELFINA Administration Enoxaparin Sodium 40 mg 10/10/24 09:00 10/11/24 09:15 Enoxaparin Sod Inj 40 Mg/0.4 Ml Syringe SC 10/24/24 08:59 40 mg QDAY DELFINA Administration Glucagon 1 mg 10/09/24 14:07 Glucagon Inj 1 Mg Vial IM Q15MIN PRN BG <70, and no IV access Cefazolin Sodium 2 gm in 100 mls @ 100 mls/hr 10/09/24 14:11 10/11/24 06:24 Ancef 2gm Ivpb IV 10/16/24 14:10 Infused Q8HR DELFINA Infusion Insulin Glargine 14 unit 10/10/24 21:00 10/10/24 20:11 Insulin Glargine (Lantus) 5 Unit/0.05 Ml (Per 5 Units) SC 11/09/24 20:59 14 unit HS DELFINA Administration Insulin Human Lispro 0 unit 10/10/24 08:28 10/11/24 09:16 Insulin Lispro (Admelog) 1 Unit/0.01 Ml Unit SC 11/08/24 16:59 3 unit AC DELFINA Administration Protocol Melatonin 3 mg 10/10/24 04:55 10/10/24 21:19 Melatonin 3 Mg Tablet PO 11/09/24 04:54 3 mg HS DELFINA Administration Ondansetron HCl 4 mg 10/09/24 14:02 Ondansetron Inj 2 Mg/Ml Inj 2 Ml IV 11/08/24 14:01 Q6H PRN NAUSEA OR VOMITING Protocol Pantoprazole Sodium 40 mg 10/10/24 09:00 10/11/24 09:19 Pantoprazole 40 Mg Tablet PO 11/09/24 08:59 40 mg QDAY DELFINA Administration Plan 59-year-old male with past medical history of COPD, morbid obesity, hypertension, HFrEF (25 to 30% on 2021) s/p defibrillator, IDDM, 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 #Anasarca likely secondary to #Acute decompensated heart failure exacerbation (EF 25 to 30% on 2021) #Hx of HFrEF (25 to 30% EF on 2021) s/p defibrillator ?Patient states that he has been having increased shortness of breath walking short distances as well as while laying flat. ?Patient has 2+ edema from lower extremities up to mid lower back and abdomen as well as 1+ bilateral upper extremity edema. ? Initial BNP was 1104 ? Last echo on file was in 2021 and showed EF of 25 to 30% ?Arterial ultrasound of bilateral lower extremities did not show concerns for PAD. - Total balance of -1.5L in last 24 hrs Plan: ? Bumex at 2 mg BID ?Echo ordered, pending ? Fluid restriction 1500 ?Daily weights ? Strict ROS's ?Low-sodium diet ? Will continue to monitor #LUDY on CKD stage IIIa ?Patient has a history of IDDM which is most likely be causing some diabetic nephropathy ?DDx diabetic nephropathy versus LUDY due to fluid overload status ?Patient's baseline creatinine is around 1.4-1.5 ? Patient came in with creatinine of 1.7, today 2 Plan: ? Continue diuresis ?Avoid nephrotoxic agents ? Renal dose medications ? Nephrology consulted, pursue recommendations #Left lower extremity cellulitis ? Patient states that for the past week he has noticed his left lower extremity to become swollen and red. -DDx cellulitis vs Erysipelas ?Patient denies any trauma -Blood cultures negative in first 24 hrs. Plan: ? Ancef 2 g every 8 hours [10/09/2024-] -Continue Doxycycline 100 mg BID [10/10/2024-] -Added Vancomycin qday for MRSA coverage x1 [10/10/2024] -Ordered Venous doppler Sukhdeep LE ? Blood cultures ordered ? Will continue to monitor #NSTEMI likely type II ? Troponins were elevated at 0.079 ? This is most likely in the setting of heart failure exacerbation ?EKG did not show any ST changes -Troponins downtrended to 0.088, but uptrended again to 0.092 -No chest pain Plan: ? Will continue to monitor #IDDM #Peripheral neuropathy ? Last A1c on 04/2024 was 12% ?A1c 9.5% 09/2024 Plan: -Glargine 14 U HS ? ISS ? Accu-Cheks and hypoglycemia protocol ordered ? 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 Diet: Cardiac, renal, carb consistent GI prophylaxis: protonix DVT prophylaxis: lovenox Code: DNR/DNI Case disclosed with Attending Dr. Manolo Page PGY1 Attending Provider Attestation/Addendum I reviewed labs, imaging, EKG, home medications and prior available records. Face to face evaluation was performed by me. I have personally examined the patient and discussed assessment and plan with the IM team. I reviewed the resident note and agree with the plan with exceptions as below. CHF exacerbation: He is diuresing well. Changed Bumex drip to IV Bumex 2 mg twice daily. Monitor I's and O's. Add Diamox if develops contraction alkalosis. LUDY: Creatinine is increasing. Decrease to Bumex. Monitor kidney function. Avoid nephrotoxins. Renally dose medications. Left lower extremity cellulitis: Continue cefazolin/doxycycline. Elevation of extremity. Management of pain as needed Elevated troponin: Likely type II non-STEMI in the setting of CHF exacerbation. Troponin peaked. Uncontrolled diabetes mellitus with hyperglycemia: Type II. Increased Lantus. Continue sliding scale insulin. Monitor fingersticks.
--- NOTE | 2024-10-11 10:24 | PD.NEPHPROG ---
Documentation for date of: 10/11/24 Subjective Subjective Interval history: Mr. Martinez is a 59-year-old morbidly obese gentleman who is well-known to me from my CKD clinic with extensive past medical history of diabetes, diabetic nephropathy, anasarca secondary to nephrotic syndrome, hypertension, COPD, obstructive sleep apnea, congestive heart failure (25 to 30% ejection fraction in 2021), status post defibrillator, stroke with residual lower extremity weakness -able to walk a little bit, osteoarthritis presented to the emergency department with significant lower extremity edema worse on the left side associated with erythema. Patient stated it started in one of his toes and rapidly spread to his lower extremity that his mom called paramedics and he was brought to the emergency department. His care provider is at bedside and he is the informant. Mom called me to inform his ER visit. Patient stated he has been becoming more and more short of breath recently and has been taking Lasix, metolazone with not much improvement in the edema. His urine output has been trending down. Last seen in my office April 2024. Patient goes to [facility]. His forest fire prevention manager is in [place]. He denies any nausea, fevers, vomiting, bloody stools, burning sensation urination, headaches, or chest pain. In the emergency department patient was hypertensive. Chest x-ray showed fluid overload. EKG showed paced rhythm. Lower extremity CT showed severe cellulitis. Creatinine 1.7. BNP 1104. Patient was given 1 dose of Lasix. Decided to admit the patient for cellulitis intractable to medical management (patient was given cefuroxime as an outpatient) spoke to internal medicine resident-recommended to start him on Bumex drip with IV broad-spectrum antibiotics. Patient currently seen in the emergency department Labs and medications reviewed. Home medications included aspirin, Lipitor, carvedilol, cefuroxime, Flexeril, Farxiga, Tresiba, Humalog, losartan, metolazone, furosemide, potassium 10/11/2024 patient currently seen in telemetry. Patient has good urine output with IV Bumex. Mother at bedside. Edema still present. Erythema in the right lower extremity tad better. Currently on vancomycin. Labs, medications reviewed. Creatinine tad elevated 2.0. Renal ultrasound showed CKD changes in the right kidney. Absent left kidney.Doppler ultrasound of the lower extremity showed no DVT. Review of Systems Review of Systems Narrative Review of Systems: CONSTITUTIONAL: Patient denies any fever, chills. Admits weight gain HEENT: Denies any visual disturbances or hearing problems. CARDIOVASCULAR: Patient denies any chest pain. Admits shortness of breath, swelling in the lower extremities. PULMONARY: Patient admits significant shortness of breath GASTROINTESTINAL: Patient denies any abdominal pain, constipation, nausea, vomiting, diarrhea. GENITOURINARY: Patient denies any urinary symptoms of burning or frequency or hematuria, denies any form in the urine. Decreased urination in the past few days SKIN: Extensive rash in the left leg worse than the right MUSCULOSKELETAL: Patient has lower extremity weakness and mostly wheelchair-bound NEUROLOGICAL: History of stroke PSYCHIATRIC: Denies any depression or anxiety. LYMPHATICS : No lymphadenopathy Exam Vital Signs Temp Pulse Resp BP Pulse Ox O2 Del Method 35.9 C L 70 16 142/98 H 93 L Room Air 10/11/24 08:00 10/11/24 09:15 10/11/24 08:00 10/11/24 09:15 10/11/24 08:00 10/11/24 08:00 Narrative Exam GENERAL APPEARANCE: Patient short of breath-sick looking. Morbidly obese gentleman currently seen in the telemetry. NECK: Neck supple, no JVD or bruit CARDIOVASCULAR: Heart regular, no murmurs LUNGS/CHEST: Decreased breath sounds bilaterally. Clear to auscultation. No rales, rhonchi, wheezing ABDOMEN: Soft, nontender, nondistended. No masses. Normal bowel sounds. EXTREMITIES: Extensive anasarca noted. SKIN: Significant cellulitic rash worse on the left leg extending all the way to the knee MUSCULOSKELETAL: In a chair-leg weakness noted PSYCHIATRIC: Normal mood, affect LYMPHATICS: No lymphadenopathy noted NEUROLOGICAL : Patient seems to have leg weakness Objective Labs 10/11/24 02:43 10/11/24 02:43 Labs: Laboratory Results - last 24 hr 10/10/24 10/10/24 10/11/24 13:51 20:25 02:43 WBC 8.1 RBC 5.05 Hgb 14.7 Hct 44.1 MCV 87 MCH 29.1 MCHC 33.3 RDW Std Deviation 57.9 H Plt Count 209 Neut % (Auto) 66 Lymph % (Auto) 19 [place] % (Auto) 13 H Eos % (Auto) 2 Baso % (Auto) 0 Neut # (Auto) 5.3 Lymph # (Auto) 1.5 [place] # (Auto) 1.0 H Eos # (Auto) 0.1 Baso # (Auto) 0.0 Immature Gran # (Auto) 0.04 H Absolute Nucleated RBC 0.00 Immature Gran % 1 H Nucleated RBC % 0 Sodium 132 L Potassium 3.4 Chloride 92 L Carbon Dioxide 33.3 H Anion Gap 7 BUN 35 H Creatinine 2.0 H Estim Creat Clear Calc 55.0 L eGFR 38 L BUN/Creatinine Ratio 18 Glucose 174 H Calculated Osmolality 276 Calcium 8.8 Corrected Calcium 9.1 Phosphorus 5.1 Magnesium 1.9 Total Bilirubin 0.8 AST 15 ALT < 7 L Alkaline Phosphatase 283 H D Troponin I 0.088 H* 0.092 H* Total Protein 7.3 Albumin 3.6 Globulin 3.7 H Albumin/Globulin Ratio 1.0 L Assessment & Plan Additional Assessment & Plan Additional Plan: Mr. Martinez is a 59-year-old gentleman presented with shortness of breath, lower extremity edema, left leg erythema 1. Acute on chronic kidney injury Patient most likely have nephrotic syndrome from longstanding poorly controlled diabetes. Urinalysis shows 3+ proteinuria. Urine protein/creatinine showed a 5.6 g consistent with nephrotic range proteinuria. Patient had a left renal agenesis. Repeat renal ultrasound confirmed the same. Noted to have 13.6 cm right kidney. Elevated creatinine from diuretics 2. Acute on chronic systolic CHF exacerbation ? Patient endorses methamphetamine abuse last usage 5d ago ? Found to have signs and symptoms of CHF exacerbation ? Echocardiogram noted EF 25 to 30%-2021. Patient follows up with a forest fire prevention manager in [place]. He has a defibrillator. ? Patient continues to have crackles and BLE edema-continue with IV Bumex. Did explain to mom That renal function will worsen with diuretics and is expected to maintain euvolemic state. 3. Extensive cellulitis of the left lower extremity-on broad-spectrum antibiotics. Blood cultures so far negative. Vanco was added. Will monitor renal function closely. 4. Elevated troponin ? Denies any chest pain ? Likely related to CHF exacerbation 5. Type 2 diabetes mellitus ? Hemoglobin A1c 9.6 ? We will continue insulin 6. Hypertension ? will initiate NALLELY inhibitor's once kidney function improves 7. ++ methamphetamine abuse ? Patient states that last usage was a 5 days ago ? Counseled the patient on cessation and understands if he was to use again his heart will get worse and could lead to 8. Hypoxic respiratory failure-suspect patient has obstructive sleep apnea versus obesity hypoventilation. Will benefit from CPAP. Patient supposed to get CPAP at home. Overall long-term prognosis remains guarded. Plan of care discussed with primary team
[2024-10-11] MEDS: ZOLPIDEM 5 MG TABLET PO (14:44)
--- NOTE | 2024-10-11 15:07 | PC.SS ---
SS submitted DME inquiry for a FWW through [facility], pending PT notes.
[2024-10-11] MEDS: MELATONIN 3 MG TABLET PO (20:12)
[2024-10-11] MEDS: ATORVASTATIN CALCIUM 20 MG TABLET PO (20:13)
[2024-10-11] MEDS: INSULIN GLARGINE (Lantus) 5 UNIT/0.05 ML (PER 5 UNITS) 14 UNIT SC (20:18)
[2024-10-11] MEDS: LORazepam 2 MG/ML VIAL 1 MG IVP (23:31)
[2024-10-12] VITALS (12 sets, daily range): BP systolic 118–142; BP diastolic 67–103; PULSE 71–90; RESP 14–23; TEMP 35.9–36.2; O2SAT 94–98; BMI 36.7
[2024-10-12] MEDS: ceFAZolin/D5W 2 GM IV 2 GM/100 ML BAG IV ×3 (05:30→21:18)
[2024-10-12 06:08] LABS: Basophils % (Auto) 0 % (0-2.5); Eosinophils # (Auto) 0.1 Thou/mm3 (0.0-0.5); Eosinophils % (Auto) 2 % (0-10); Hematocrit 42.9 % (41.0-53.0); Hemoglobin 14.4 g/dL (13.5-16.0); Immature Granulocytes % (Auto) 0 % (0-0); Immature Granulocytes Auto 0.03 Thou/mm3 (0.00-0.00); Lymphocytes # (Auto) 1.5 Thou/mm3 (1.0-4.8); Lymphocytes % (Auto) 20 % (10-50); Mean Corpuscular HGB Conc 33.6 g/dl (31.0-37.0); Mean Corpuscular Hemoglobin 28.9 pg (25.0-35.0); Mean Corpuscular Volume 86 fL (80-100); Monocytes # (Auto) 0.9 Thou/mm3 (0.0-0.8); Monocytes % (Auto) 12 % (0-12); Neutrophils # (Auto) 4.9 Thou/mm3 (1.8-7.7); Neutrophils % (Auto) 66 % (37-80); Nucleated Red Blood Cell % 0 /100 WBC (0); Platelet Count 217 Thou/mm3 (140-440); RDW Standard Deviation 54.8 fL (35.1-43.9); Red Blood Count 4.98 Miln/mm3 (4.50-5.90); White Blood Count 7.4 Thou/mm3 (3.8-10.6)
[2024-10-12 06:48] LABS: Alanine Aminotransferase < 7 U/L (10-49); Albumin, Serum 3.4 gm/dL (3.5-5.0); Albumin/Globulin Ratio 0.9 (1.2-2.2); Alkaline Phosphatase 268 U/L (46-116); Anion Gap 8 (7-16); Aspartate Amino Transferase 16 U/L (0-34); BUN/Creatinine Ratio 22 Ratio (12-20); Bilirubin,Total 0.6 mg/dL (0.3-1.2); Blood Urea Nitrogen 39 mg/dL (9-23); Calcium 8.5 mg/dL (8.3-10.6); Carbon Dioxide 32.9 mMol/L (20.0-31.0); Chloride 91 mMol/L (98-107); Creatinine (Component) 1.8 mg/dL (0.6-1.3); Estimated Creatinine Clearance 60.6 mL/min (>60); Globulin 3.6 gm/dL (2.3-3.5); Glucose 174 mg/dL (74-106); Magnesium 2.2 mg/dL (1.6-2.6); Osmolality,Calculated 277 (275-295); Potassium 3.4 mMol/L (3.4-5.1); Sodium 132 mMol/L (136-145); eGFR 43 See Note
[2024-10-12] MEDS: INSULIN LISPRO (AdmeLOG) 1 UNIT/0.01 ML UNIT SC ×3 (08:25→16:48)
[2024-10-12] MEDS: BUMETANIDE INJ 0.25 MG/ML VIAL 4 ML 2 MG IVP (08:34)
[2024-10-12] MEDS: ENOXAPARIN SOD INJ 40 MG/0.4 ML SYRINGE SC (08:38)
[2024-10-12] MEDS: POTASSIUM CHLORIDE 20 mEq TABCR 40 MEQ PO (08:39)
[2024-10-12] MEDS: ACETAMINOPHEN 325 MG TABLET 650 MG PO (08:39)
[2024-10-12] MEDS: DOXYCYCLINE 100 MG TABLET PO ×2 (08:39→20:29)
[2024-10-12] MEDS: ASPIRIN EC 81 MG TABEC PO (08:39)
[2024-10-12] MEDS: PANTOPRAZOLE 40 MG TABLET PO (08:40)
[2024-10-12] MEDS: carVEDILOL 3.125 MG TABLET 6.25 MG PO ×2 (08:40→20:28)
--- NOTE | 2024-10-12 09:23 | PD.NEPHPROG ---
Documentation for date of: 10/12/24 Subjective Subjective Interval history: Mr. Martinez is a 59-year-old morbidly obese gentleman who is well-known to me from my CKD clinic with extensive past medical history of diabetes, diabetic nephropathy, anasarca secondary to nephrotic syndrome, hypertension, COPD, obstructive sleep apnea, congestive heart failure (25 to 30% ejection fraction in 2021), status post defibrillator, stroke with residual lower extremity weakness -able to walk a little bit, osteoarthritis presented to the emergency department with significant lower extremity edema worse on the left side associated with erythema. Patient stated it started in one of his toes and rapidly spread to his lower extremity that his mom called paramedics and he was brought to the emergency department. His care provider is at bedside and he is the informant. Mom called me to inform his ER visit. Patient stated he has been becoming more and more short of breath recently and has been taking Lasix, metolazone with not much improvement in the edema. His urine output has been trending down. Last seen in my office April 2024. Patient goes to [facility]. 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 He denies any nausea, fevers, vomiting, bloody stools, burning sensation urination, headaches, or chest pain. In the emergency department patient was hypertensive. Chest x-ray showed fluid overload. EKG showed paced rhythm. Lower extremity CT showed severe cellulitis. Creatinine 1.7. BNP 1104. Patient was given 1 dose of Lasix. Decided to admit the patient for cellulitis intractable to medical management (patient was given cefuroxime as an outpatient) spoke to internal medicine resident-recommended to start him on Bumex drip with IV broad-spectrum antibiotics. Patient currently seen in the emergency department Labs and medications reviewed. Home medications included aspirin, Lipitor, carvedilol, cefuroxime, Flexeril, Farxiga, Tresiba, Humalog, losartan, metolazone, furosemide, potassium 10/12/2024 patient currently seen in telemetry. Patient has good urine output with IV Bumex. Care provider Cody at bedside. Edema still present. Erythema in the right lower extremity tad better. Currently on Ancef. Labs, medications reviewed. Creatinine tad better at 1.8. Renal ultrasound showed CKD changes in the right kidney. Absent left kidney.Doppler ultrasound of the lower extremity showed no DVT. Review of Systems Review of Systems Narrative Review of Systems: CONSTITUTIONAL: Patient denies any fever, chills. Admits weight gain HEENT: Denies any visual disturbances or hearing problems. CARDIOVASCULAR: Patient denies any chest pain. Admits shortness of breath, swelling in the lower extremities. PULMONARY: Patient admits significant shortness of breath GASTROINTESTINAL: Patient denies any abdominal pain, constipation, nausea, vomiting, diarrhea. GENITOURINARY: Patient denies any urinary symptoms of burning or frequency or hematuria, denies any form in the urine. Decreased urination in the past few days SKIN: Extensive rash in the left leg worse than the right MUSCULOSKELETAL: Patient has lower extremity weakness and mostly wheelchair-bound NEUROLOGICAL: History of stroke PSYCHIATRIC: Denies any depression or anxiety. LYMPHATICS : No lymphadenopathy Exam Vital Signs Temp Pulse Resp BP Pulse Ox O2 Del Method O2 Flow Rate 36.4 C 80 14 118/67 96 Room Air 2 10/11/24 20:00 10/12/24 08:40 10/12/24 07:53 10/12/24 08:40 10/12/24 07:53 10/11/24 20:00 10/12/24 07:53 Narrative Exam GENERAL APPEARANCE: Patient short of breath-sick looking. Morbidly obese gentleman currently seen in the telemetry. NECK: Neck supple, no JVD or bruit CARDIOVASCULAR: Heart regular, no murmurs LUNGS/CHEST: Decreased breath sounds bilaterally. Clear to auscultation. No rales, rhonchi, wheezing ABDOMEN: Soft, nontender, nondistended. No masses. Normal bowel sounds. EXTREMITIES: Extensive anasarca noted. SKIN: Significant cellulitic rash worse on the left leg extending all the way to the knee--better than on admission. MUSCULOSKELETAL: In a chair-leg weakness noted PSYCHIATRIC: Normal mood, affect LYMPHATICS: No lymphadenopathy noted NEUROLOGICAL : Patient seems to have leg weakness Objective Labs 10/12/24 04:45 10/12/24 04:45 Labs: Laboratory Results - last 24 hr 10/12/24 04:45 WBC 7.4 RBC 4.98 Hgb 14.4 Hct 42.9 MCV 86 MCH 28.9 MCHC 33.6 RDW Std Deviation 54.8 H Plt Count 217 Neut % (Auto) 66 Lymph % (Auto) 20 [place] % (Auto) 12 Eos % (Auto) 2 Baso % (Auto) 0 Neut # (Auto) 4.9 Lymph # (Auto) 1.5 [place] # (Auto) 0.9 H Eos # (Auto) 0.1 Baso # (Auto) 0.0 Immature Gran # (Auto) 0.03 H Absolute Nucleated RBC 0.00 Immature Gran % 0 Nucleated RBC % 0 Sodium 132 L Potassium 3.4 Chloride 91 L Carbon Dioxide 32.9 H Anion Gap 8 BUN 39 H Creatinine 1.8 H Estim Creat Clear Calc 60.6 L eGFR 43 L BUN/Creatinine Ratio 22 H Glucose 174 H Calculated Osmolality 277 Calcium 8.5 Corrected Calcium 9.0 Magnesium 2.2 Total Bilirubin 0.6 AST 16 ALT < 7 L Alkaline Phosphatase 268 H Total Protein 7.0 Albumin 3.4 L Globulin 3.6 H Albumin/Globulin Ratio 0.9 L Assessment & Plan Additional Assessment & Plan Additional Plan: Mr. Martinez is a 59-year-old gentleman presented with shortness of breath, lower extremity edema, left leg erythema 1. Acute on chronic kidney injury Patient most likely have nephrotic syndrome from longstanding poorly controlled diabetes. Urinalysis shows 3+ proteinuria. Urine protein/creatinine showed a 5.6 g consistent with nephrotic range proteinuria. Patient had a left renal agenesis. Repeat renal ultrasound confirmed the same. Noted to have 13.6 cm right kidney. Elevated creatinine from diuretics. Today creatinine 1.8. 2. Acute on chronic systolic CHF exacerbation ? Patient endorses methamphetamine abuse last usage 5d ago ? Found to have signs and symptoms of CHF exacerbation ? Echocardiogram noted EF 25 to 30%-2021. Patient follows up with a advertisement compositor in [place]. He has a defibrillator. ? Patient continues to have crackles and BLE edema-continue with IV Bumex. Did explain to mom That renal function will worsen with diuretics and is expected to maintain euvolemic state. Pending echocardiogram. 3. Extensive cellulitis of the left lower extremity-on broad-spectrum antibiotics. Blood cultures so far negative. Currently on Ancef will monitor renal function closely. 4. Elevated troponin ? Denies any chest pain ? Likely related to CHF exacerbation 5. Type 2 diabetes mellitus ? Hemoglobin A1c 9.6 ? We will continue insulin 6. Hypertension ? will initiate NALLELY inhibitor's once kidney function improves 7. ++ methamphetamine abuse ? Patient states that last usage was a 5 days ago ? Counseled the patient on cessation and understands if he was to use again his heart will get worse and could lead to 8. Hypoxic respiratory failure-suspect patient has obstructive sleep apnea versus obesity hypoventilation. Will benefit from CPAP. Patient supposed to get CPAP at home. Plan of care discussed with primary team Quality - progress note Quality Measures Quality Measures: VTE prophylaxis Reason for Continued Stay Reason for Continued Stay: further monitoring
--- NOTE | 2024-10-12 09:29 | PD.RESPRO ---
Documentation for date of: 10/12/24 Subjective Subjective Interval history: Patient was seen at bedside this morning. No overnight events. Patient's kidney function did improve slightly with creatinine 1.8 today from 2 yesterday. Patient had total balance of -1.2 L overnight. His blood cultures have been negative in 48 hours. His anasarca has significantly improved. Echo still pending. Patient has no other complaints at this time. Exam Vital Signs Temp Pulse Resp BP Pulse Ox O2 Del Method O2 Flow Rate 97.6 F 80 14 118/67 96 Room Air 2 10/11/24 20:00 10/12/24 08:40 10/12/24 07:53 10/12/24 08:40 10/12/24 07:53 10/11/24 20:00 10/12/24 07:53 Narrative Exam General: A/O x3, no acute distress, obese Eyes: PERRL, EOMI. Anicteric, vision grossly intact. Ears: No ear pain, no ear discharge, Hearing grossly intact. Nose: No nasal discharge. Mouth/Throat: Moist mucous membranes, no redness, no lesions. Neck: Neck supple, non-tender, no cervical lymphadenopathy. Lungs: Clear SU[place]DEEP to auscultation and percussion, No accessory muscle use. Cardio: Normal S1/S2, regular rhythm, no murmurs, no JVD Abdomen: Soft, non-tender, no palpable masses, peristalsis present, no guarding or rebound. Extremities: Symmetrical, no significant deformities, 2+ edema from SUKHDEEP LE upto lower thigh still, but improving, and 1+ in lower back, non-tender, peripheral pulses difficult to palpate due to edema. Skin: No rashes, no lesions, warm to touch. Eryhtema in L LE more pronounced than R LE, improved from yesterday. Neuro: No focal neurological deficits. motor and sensory intact, mild decrease in L LE strength when compared to R LE Psych: Cooperative, appropriate mood and effect. Objective Labs 10/13/24 06:20 10/13/24 06:20 Labs: Laboratory Results - last 24 hr 10/12/24 04:45 WBC 7.4 RBC 4.98 Hgb 14.4 Hct 42.9 MCV 86 MCH 28.9 MCHC 33.6 RDW Std Deviation 54.8 H Plt Count 217 Neut % (Auto) 66 Lymph % (Auto) 20 [place] % (Auto) 12 Eos % (Auto) 2 Baso % (Auto) 0 Neut # (Auto) 4.9 Lymph # (Auto) 1.5 [place] # (Auto) 0.9 H Eos # (Auto) 0.1 Baso # (Auto) 0.0 Immature Gran # (Auto) 0.03 H Absolute Nucleated RBC 0.00 Immature Gran % 0 Nucleated RBC % 0 Sodium 132 L Potassium 3.4 Chloride 91 L Carbon Dioxide 32.9 H Anion Gap 8 BUN 39 H Creatinine 1.8 H Estim Creat Clear Calc 60.6 L eGFR 43 L BUN/Creatinine Ratio 22 H Glucose 174 H Calculated Osmolality 277 Calcium 8.5 Corrected Calcium 9.0 Magnesium 2.2 Total Bilirubin 0.6 AST 16 ALT < 7 L Alkaline Phosphatase 268 H Total Protein 7.0 Albumin 3.4 L Globulin 3.6 H Albumin/Globulin Ratio 0.9 L Quality Measures Quality Measures none Assessment & Plan Assessment Current Active Medications: Generic Name Dose Route Start Last Admin Trade Name Freq PRN Reason Stop Dose Admin Acetaminophen 650 mg 10/10/24 12:55 10/12/24 08:39 Acetaminophen 325 Mg Tablet PO 11/08/24 14:01 650 mg Q6H PRN Administration pain(1-3) and Fever >100.4 Hydrocodone Bitart/Acetaminophen 2 tab 10/10/24 04:51 10/11/24 01:44 Hydrocodone/Apap 5/325 Tablet PO 10/14/24 14:01 2 tab Q4HR PRN Administration Pain Scale 4-6 Aspirin 81 mg 10/11/24 09:00 10/12/24 08:39 Aspirin Ec 81 Mg Tabec PO 11/10/24 08:59 81 mg QDAY DELFINA Administration Atorvastatin Calcium 20 mg 10/09/24 21:00 10/11/24 20:13 Atorvastatin Calcium 20 Mg Tablet PO 11/08/24 20:59 20 mg HS DELFINA Administration Bumetanide 2 mg 10/10/24 09:00 10/12/24 08:34 Bumetanide Inj 0.25 Mg/Ml Vial 4 Ml IVP 11/09/24 08:59 2 mg BID DELFINA Administration Carvedilol 6.25 mg 10/09/24 21:00 10/12/24 08:40 Carvedilol 3.125 Mg Tablet PO 11/08/24 20:59 6.25 mg BID DELFINA Administration Dextrose 25 ml 10/09/24 14:07 Dextrose 50%-Water Inj 50 Ml Syringe IV 11/08/24 14:06 Q15MIN PRN BG 50-70 responsive npo pt Dextrose 50 ml 10/09/24 14:07 Dextrose 50%-Water Inj 50 Ml Syringe IV 11/08/24 14:06 Q15MIN PRN BG <50 OR BG <70 & pt unresponsive Doxycycline Hyclate 100 mg 10/10/24 21:00 10/12/24 08:39 Doxycycline 100 Mg Tablet PO 10/17/24 20:59 100 mg BID DELFINA Administration Enoxaparin Sodium 40 mg 10/10/24 09:00 10/12/24 08:38 Enoxaparin Sod Inj 40 Mg/0.4 Ml Syringe SC 10/24/24 08:59 40 mg QDAY DELFINA Administration Glucagon 1 mg 10/09/24 14:07 Glucagon Inj 1 Mg Vial IM Q15MIN PRN BG <70, and no IV access Cefazolin Sodium 2 gm in 100 mls @ 100 mls/hr 10/09/24 14:11 10/12/24 05:30 Ancef 2gm Ivpb IV 10/16/24 14:10 100 mls/hr Q8HR DELFINA Administration Insulin Glargine 14 unit 10/10/24 21:00 10/11/24 20:18 Insulin Glargine (Lantus) 5 Unit/0.05 Ml (Per 5 Units) SC 11/09/24 20:59 14 unit HS DELFINA Administration Insulin Human Lispro 0 unit 10/10/24 08:28 10/12/24 08:25 Insulin Lispro (Admelog) 1 Unit/0.01 Ml Unit SC 11/08/24 16:59 2 unit AC DELFINA Administration Protocol Lorazepam 1 mg 10/11/24 14:28 10/11/24 23:31 Lorazepam 2 Mg/Ml Vial IVP 10/16/24 14:27 1 mg Q8HR PRN Administration ANXIETY Melatonin 3 mg 10/10/24 04:55 10/11/24 20:12 Melatonin 3 Mg Tablet PO 11/09/24 04:54 3 mg HS DELFINA Administration Nicotine 14 mg 10/12/24 09:28 Nicotine Patch 14 Mg/24 Hr Patch.Td24 TOP 10/12/24 09:29 X1 ONE Ondansetron HCl 4 mg 10/09/24 14:02 Ondansetron Inj 2 Mg/Ml Inj 2 Ml IV 11/08/24 14:01 Q6H PRN NAUSEA OR VOMITING Protocol Pantoprazole Sodium 40 mg 10/10/24 09:00 10/12/24 08:40 Pantoprazole 40 Mg Tablet PO 11/09/24 08:59 40 mg QDAY DELFINA Administration Plan 59-year-old male with past medical history of COPD, morbid obesity, hypertension, HFrEF (25 to 30% on 2021) s/p defibrillator, IDDM, 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 #Anasarca likely secondary to #Acute decompensated heart failure exacerbation (EF 25 to 30% on 2021) #Hx of HFrEF (25 to 30% EF on 2021) s/p defibrillator ?Patient states that he has been having increased shortness of breath walking short distances as well as while laying flat. ?Patient has 2+ edema from lower extremities up to mid lower back and abdomen as well as 1+ bilateral upper extremity edema. ? Initial BNP was 1104 ? Last echo on file was in 2021 and showed EF of 25 to 30% ?Arterial ultrasound of bilateral lower extremities did not show concerns for PAD. - Total balance of -1.2L in last 24 hrs Plan: ? Bumex 2 mg PO BID ?Echo ordered, pending ? Fluid restriction 1500 ?Daily weights ? Strict ROS's ?Low-sodium diet ? Will continue to monitor #LUDY on CKD stage IIIa ?Patient has a history of IDDM which is most likely be causing some diabetic nephropathy ?DDx diabetic nephropathy versus LUDY due to fluid overload status ?Patient's baseline creatinine is around 1.4-1.5 ? Patient came in with creatinine of 1.7, today 1.8 Plan: ? Continue diuresis ?Avoid nephrotoxic agents ? Renal dose medications ? Nephrology consulted, pursue recommendations #Left lower extremity cellulitis ? Patient states that for the past week he has noticed his left lower extremity to become swollen and red. -DDx cellulitis vs Erysipelas ?Patient denies any trauma -Blood cultures negative in 48 hrs. -Vancomycin qday for MRSA coverage x1 [10/10/2024] Plan: ? Ancef 2 g every 8 hours [10/09/2024-] -Continue Doxycycline 100 mg BID [10/10/2024-] ? Will continue to monitor #NSTEMI likely type II ? Troponins were elevated at 0.079 ? This is most likely in the setting of heart failure exacerbation ?EKG did not show any ST changes -Troponins downtrended to 0.088, but uptrended again to 0.092 -No chest pain Plan: ? Will continue to monitor #IDDM #Peripheral neuropathy ? Last A1c on 04/2024 was 12% ?A1c 9.5% 09/2024 Plan: -Glargine 18 U HS ? ISS ? Accu-Cheks and hypoglycemia protocol ordered ? Will continue to monitor #CVA in 2022 with residual left lower extremity weakness #Hyperlipidemia ?Continue patient's aspirin and atorvastatin #COPD #Active smoker ?Consult patient on quitting smoking -Nicotine patch x1 Disposition: Patient admitted to telemetry for Anasarca, cellulitis and LUDY, continue bumex 2mg PO BID and Abx, pending echo and PT. Diet: Cardiac, renal, carb consistent GI prophylaxis: protonix DVT prophylaxis: lovenox Code: DNR/DNI Case disclosed with Attending Dr. Manolo Page PGY1 Attending Provider Attestation/Addendum I reviewed labs, imaging, EKG, home medications and prior available records. Face to face evaluation was performed by me. I have personally examined the patient and discussed assessment and plan with the IM team. I reviewed the resident note and agree with the plan with exceptions as below. CHF exacerbation: He is diuresing well. Changed Bumex drip to p.o. Bumex 2 mg twice daily. Monitor I's and O's. LUDY: Creatinine is increasing. Decrease to Bumex. Monitor kidney function. Avoid nephrotoxins. Renally dose medications. Left lower extremity cellulitis: Continue cefazolin/doxycycline. Elevation of extremity. Management of pain as needed. Elevated troponin: Likely type II non-STEMI in the setting of CHF exacerbation. Troponin peaked. Ordered echocardiogram Uncontrolled diabetes mellitus with hyperglycemia: Type II. Increased Lantus. Continue sliding scale insulin. Monitor fingersticks.
--- NOTE | 2024-10-12 09:50 | PC.SS ---
Update: PT evaluation is pending.
[2024-10-12] MEDS: NICOTINE PATCH 14 MG/24 HR PATCH.TD24 TOP (14:15)
--- NOTE | 2024-10-12 14:33 | PC.SS ---
PT evaluation is pending. Once PT evaluation charted, licensed social worker to submit documentation for DME referral.
--- NOTE | 2024-10-12 14:34 | PC.SS ---
Rounding Note: Echo is pending. Physical therapy is pending. Possible d/c tomorrow.
[2024-10-12] MEDS: BUMETANIDE 0.5 MG TABLET 2 MG PO (20:27)
[2024-10-12] MEDS: MELATONIN 3 MG TABLET PO (20:28)
[2024-10-12] MEDS: ATORVASTATIN CALCIUM 20 MG TABLET PO (20:28)
[2024-10-12] MEDS: INSULIN GLARGINE (Lantus) 5 UNIT/0.05 ML (PER 5 UNITS) 18 UNIT SC (20:29)
[2024-10-12] MEDS: LORazepam 2 MG/ML VIAL 1 MG IVP (21:17)
[2024-10-13] VITALS: PULSE 87
[2024-10-13] MEDS: ceFAZolin/D5W 2 GM IV 2 GM/100 ML BAG IV (06:00)
[2024-10-13 06:49] LABS: Basophils % (Auto) 0 % (0-2.5); Eosinophils # (Auto) 0.1 Thou/mm3 (0.0-0.5); Eosinophils % (Auto) 2 % (0-10); Hematocrit 44.1 % (41.0-53.0); Hemoglobin 14.8 g/dL (13.5-16.0); Immature Granulocytes % (Auto) 1 % (0-0); Immature Granulocytes Auto 0.05 Thou/mm3 (0.00-0.00); Lymphocytes # (Auto) 1.7 Thou/mm3 (1.0-4.8); Lymphocytes % (Auto) 22 % (10-50); Mean Corpuscular HGB Conc 33.6 g/dl (31.0-37.0); Mean Corpuscular Hemoglobin 29.2 pg (25.0-35.0); Mean Corpuscular Volume 87 fL (80-100); Monocytes # (Auto) 1.1 Thou/mm3 (0.0-0.8); Monocytes % (Auto) 14 % (0-12); Neutrophils # (Auto) 4.8 Thou/mm3 (1.8-7.7); Neutrophils % (Auto) 62 % (37-80); Nucleated Red Blood Cell % 0 /100 WBC (0); Platelet Count 219 Thou/mm3 (140-440); RDW Standard Deviation 54.6 fL (35.1-43.9); Red Blood Count 5.07 Miln/mm3 (4.50-5.90); White Blood Count 7.8 Thou/mm3 (3.8-10.6)
[2024-10-13] MEDS: INSULIN LISPRO (AdmeLOG) 1 UNIT/0.01 ML UNIT SC ×2 (07:27→11:28)
[2024-10-13 08:00] VITALS: BP 145/94; PULSE 83; PULSE 84; RESP 18; TEMP 35.9; O2SAT 91
[2024-10-13 08:18] LABS: Alanine Aminotransferase < 7 U/L (10-49); Albumin, Serum 3.7 gm/dL (3.5-5.0); Alkaline Phosphatase 292 U/L (46-116); Anion Gap 9 (7-16); Aspartate Amino Transferase 22 U/L (0-34); BUN/Creatinine Ratio 21 Ratio (12-20); Bilirubin,Total 0.5 mg/dL (0.3-1.2); Blood Urea Nitrogen 40 mg/dL (9-23); Calcium 8.7 mg/dL (8.3-10.6); Calcium (Corrected) 8.9 mg/dL (8.5-10.1); Carbon Dioxide 31.7 mMol/L (20.0-31.0); Chloride 90 mMol/L (98-107); Creatinine (Component) 1.9 mg/dL (0.6-1.3); Estimated Creatinine Clearance 57.4 mL/min (>60); Globulin 3.8 gm/dL (2.3-3.5); Glucose 215 mg/dL (74-106); Osmolality,Calculated 278 (275-295); Potassium 3.5 mMol/L (3.4-5.1); Sodium 131 mMol/L (136-145); Total Protein 7.5 gm/dL (5.7-8.2); eGFR 40 See Note
[2024-10-13] MEDS: ENOXAPARIN SOD INJ 40 MG/0.4 ML SYRINGE SC (08:33)
[2024-10-13 08:34] VITALS: BP 145/103; PULSE 83
[2024-10-13] MEDS: carVEDILOL 3.125 MG TABLET 6.25 MG PO (08:34)
[2024-10-13 08:35] VITALS: BP 145/103; PULSE 83
[2024-10-13] MEDS: DOXYCYCLINE 100 MG TABLET PO (08:35)
[2024-10-13] MEDS: BUMETANIDE 0.5 MG TABLET 2 MG PO (08:35)
[2024-10-13] MEDS: ASPIRIN EC 81 MG TABEC PO (08:35)
[2024-10-13] MEDS: PANTOPRAZOLE 40 MG TABLET PO (08:35)
--- NOTE | 2024-10-13 09:08 | PC.NURSE ---
[facility] 0100 [facility] 0700.
--- NOTE | 2024-10-13 09:51 | ESPR_ITS ---
Documentation for date of: 10/13/24 Subjective Subjective Interval history: Chace Martinez is a 59-year-old morbidly obese gentleman who is well-known to Dr. Donald from CKD clinic with extensive past medical history of diabetes, diabetic nephropathy, anasarca secondary to nephrotic syndrome, hypertension, COPD, obstructive sleep apnea, congestive heart failure (25 to 30% ejection fraction in 2021), status post defibrillator, stroke with residual lower extremity weakness, and osteoarthritis who presented to the ED with significant lower extremity edema L > R and associated erythema. Started in one of his toes and rapidly spread to his lower extremity so his mom called paramedics and was brought to the ED. His care provider is at bedside and he is the informant. Also states that he had become more short of breath while being compliant with Lasix and metolazone but without improvement in his edema. Urine output has been trending down. Last seen with Dr. Donald on 04/2024. 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 Denies any nausea, fevers, vomiting, bloody stools, burning sensation urination, headaches, or chest pain. In ED, patient was hypertensive. CXR showed fluid overload. EKG showed paced rhythm. Lower extremity CT showed severe cellulitis. Creatinine 1.7. BNP 1104. Given 1 dose of Lasix. Decided to admit for cellulitis, intractable to medical management (given cefuroxime as outpatient). Recommended to primary team to start on Bumex drip with IV broad-spectrum antibiotics. Home medications include aspirin, Lipitor, carvedilol, cefuroxime, Flexeril, Farxiga, Tresiba, Humalog, losartan, metolazone, furosemide, potassium 10/12: Currently seen in telemetry. Has good urine output with IV Bumex. Care provider Cody at bedside. Edema still present with erythema in the right lower extremity mildly better. Currently on Ancef. Labs, medications reviewed. Creatinine improved at 1.8. Renal ultrasound showed CKD changes in the right kidney. Absent left kidney. Doppler ultrasound of the lower extremity showed negative for DVT. 10/13: Patient seen and examined at bedside in telemetry, breathing comfortably on room air. Continues to have bilateral lower extremity edema but patient states that it is much improved since he had been admitted and continues to have good urine output. Creatinine mildly increased from 1.8 to 1.9, Na stable at 131, K stable at 3.5. Exam Vital Signs Temp Pulse Resp BP Pulse Ox O2 Del Method O2 Flow Rate 96.6 F L 83 18 145/103 H 91 L Room Air 2 10/13/24 08:00 10/13/24 08:35 10/13/24 08:00 10/13/24 08:35 10/13/24 08:00 10/13/24 08:00 10/12/24 23:23 Narrative Exam General: AOx3, no acute distress, able to speak full sentences on room air HEENT: NC/AT, mucous membranes moist, bilateral sclera anicteric Cardiovascular: regular rate and rhythm, S1/S2 present, no murmurs appreciated Pulmonary: clear to auscultation bilaterally, no rales/rhonchi/wheezes Abdominal: soft, non-tender, non-distended, no rebound/guarding, normal bowel sounds present Musculoskeletal: bilateral lower extremity pitting edema Skin: chronic venous stasis changes Objective Labs 10/13/24 06:20 10/13/24 06:20 Labs: Laboratory Results - last 24 hr 10/13/24 06:20 WBC 7.8 RBC 5.07 Hgb 14.8 Hct 44.1 MCV 87 MCH 29.2 MCHC 33.6 RDW Std Deviation 54.6 H Plt Count 219 Neut % (Auto) 62 Lymph % (Auto) 22 Mcintosh % (Auto) 14 H Eos % (Auto) 2 Baso % (Auto) 0 Neut # (Auto) 4.8 Lymph # (Auto) 1.7 Mcintosh # (Auto) 1.1 H Eos # (Auto) 0.1 Baso # (Auto) 0.0 Immature Gran # (Auto) 0.05 H Absolute Nucleated RBC 0.00 Immature Gran % 1 H Nucleated RBC % 0 Sodium 131 L Potassium 3.5 Chloride 90 L Carbon Dioxide 31.7 H Anion Gap 9 BUN 40 H Creatinine 1.9 H Estim Creat Clear Calc 57.4 L eGFR 40 L BUN/Creatinine Ratio 21 H Glucose 215 H Calculated Osmolality 278 Calcium 8.7 Corrected Calcium 8.9 Magnesium 2.0 Total Bilirubin 0.5 AST 22 ALT < 7 L Alkaline Phosphatase 292 H D Total Protein 7.5 Albumin 3.7 Globulin 3.8 H Albumin/Globulin Ratio 1.0 L Quality Measures Quality Measures none Assessment & Plan Assessment Current Active Medications: Generic Name Dose Route Start Last Admin Trade Name Freq PRN Reason Stop Dose Admin Acetaminophen 650 mg 10/10/24 12:55 10/12/24 08:39 Acetaminophen 325 Mg Tablet PO 11/08/24 14:01 650 mg Q6H PRN Administration pain(1-3) and Fever >100.4 Hydrocodone Bitart/Acetaminophen 2 tab 10/10/24 04:51 10/11/24 01:44 Hydrocodone/Apap 5/325 Tablet PO 10/14/24 14:01 2 tab Q4HR PRN Administration Pain Scale 4-6 Aspirin 81 mg 10/11/24 09:00 10/13/24 08:35 Aspirin Ec 81 Mg Tabec PO 11/10/24 08:59 81 mg QDAY DELFINA Administration Atorvastatin Calcium 20 mg 10/09/24 21:00 10/12/24 20:28 Atorvastatin Calcium 20 Mg Tablet PO 11/08/24 20:59 20 mg HS DELFINA Administration Bumetanide 2 mg 10/12/24 21:00 10/13/24 08:35 Bumetanide 0.5 Mg Tablet PO 11/11/24 20:59 2 mg BID DELFINA Administration Carvedilol 6.25 mg 10/09/24 21:00 10/13/24 08:34 Carvedilol 3.125 Mg Tablet PO 11/08/24 20:59 6.25 mg BID DELFINA Administration Dextrose 25 ml 10/09/24 14:07 Dextrose 50%-Water Inj 50 Ml Syringe IV 11/08/24 14:06 Q15MIN PRN BG 50-70 responsive npo pt Dextrose 50 ml 10/09/24 14:07 Dextrose 50%-Water Inj 50 Ml Syringe IV 11/08/24 14:06 Q15MIN PRN BG <50 OR BG <70 & pt unresponsive Doxycycline Hyclate 100 mg 10/10/24 21:00 10/13/24 08:35 Doxycycline 100 Mg Tablet PO 10/17/24 20:59 100 mg BID DELFINA Administration Enoxaparin Sodium 40 mg 10/10/24 09:00 10/13/24 08:33 Enoxaparin Sod Inj 40 Mg/0.4 Ml Syringe SC 10/24/24 08:59 40 mg QDAY DELFINA Administration Glucagon 1 mg 10/09/24 14:07 Glucagon Inj 1 Mg Vial IM Q15MIN PRN BG <70, and no IV access Cefazolin Sodium 2 gm in 100 mls @ 100 mls/hr 10/09/24 14:11 10/13/24 06:00 Ancef 2gm Ivpb IV 10/16/24 14:10 100 mls/hr Q8HR DELFINA Administration Insulin Glargine 18 unit 10/12/24 21:00 10/12/24 20:29 Insulin Glargine (Lantus) 5 Unit/0.05 Ml (Per 5 Units) SC 11/11/24 20:59 18 unit HS DELFINA Administration Insulin Human Lispro 0 unit 10/10/24 08:28 10/13/24 07:27 Insulin Lispro (Admelog) 1 Unit/0.01 Ml Unit SC 11/08/24 16:59 3 unit AC DELFINA Administration Protocol Lorazepam 1 mg 10/11/24 14:28 10/12/24 21:17 Lorazepam 2 Mg/Ml Vial IVP 10/16/24 14:27 1 mg Q8HR PRN Administration ANXIETY Melatonin 3 mg 10/10/24 04:55 10/12/24 20:28 Melatonin 3 Mg Tablet PO 11/09/24 04:54 3 mg HS DELFINA Administration Ondansetron HCl 4 mg 10/09/24 14:02 Ondansetron Inj 2 Mg/Ml Inj 2 Ml IV 11/08/24 14:01 Q6H PRN NAUSEA OR VOMITING Protocol Pantoprazole Sodium 40 mg 10/10/24 09:00 10/13/24 08:35 Pantoprazole 40 Mg Tablet PO 11/09/24 08:59 40 mg QDAY DELFINA Administration Plan Chace Martinez is a 59-year-old morbidly obese gentleman who is well-known to Dr. Donald from CKD clinic with extensive past medical history of diabetes, diabetic nephropathy, anasarca secondary to nephrotic syndrome, hypertension, COPD, obstructive sleep apnea, congestive heart failure (25 to 30% ejection fraction in 2021), status post defibrillator, stroke with residual lower extremity weakness, and osteoarthritis who was admited for cellulitis, intractable to medical management (given cefuroxime as outpatient). Nephrology consulted for acute on chronic kidney injury. #Acute on chronic kidney injury #Nephrotic syndrome, secondary to #Diabetic nephropathy Most likely has nephrotic syndrome from longstanding poorly controlled diabetes, supported by urinalysis showing 3+ proteinuria. Urine protein/creatinine ratio showed 5.6 g, also consistent with nephrotic range proteinuria. 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 Noted to have 13.6 cm right kidney. Cr mildly increased, likely secondary to diuretics. ? Discharge with oral Bumex ? Renally dose medications ? Avoid nephrotoxic agents #Acute on chronic systolic CHF exacerbation #Extensive cellulitis of the left lower extremity, on broad-spectrum antibiotics #Elevated troponin #Type 2 diabetes mellitus, uncontrolled #Hypertension #Methamphetamine abuse #Acute hypoxic respiratory failure #KE vs obesity hypoventilation syndrome ? Continue management per primary team ----- Plan discussed with attending physician Dr. Odilon Hester MD PGY-1 Internal Medicine Attending Provider Attestation/Addendum Patient seen and examined with resident physician Dr. Chris. Note reviewed, agree with findings and recommendations. dc today
[2024-10-13] MEDS: POTASSIUM CHLORIDE 20 mEq TABCR 40 MEQ PO (10:04)
--- NOTE | 2024-10-13 10:51 | PC.SS ---
Follow up note: Patient to d/c home today. No d/c needs.
--- NOTE | 2024-10-13 11:55 | ESDS_ITS ---
Planned Discharge Date 10/13/24 DS: Providers Provider Date of admission: 10/09/24 14:02 Primary care physician: Jad Lipscomb MD Admitting Provider: Daren Das MD Attending Provider on Admission: Maximino French MD Consults: 10/09/24 14:10 Consult to Nephrology Stat Comment: Consulting Provider: Padma Donald 10/10/24 05:05 Referral Wound Care Routine Comment: Instructions: admitted with cellulitis to sukhdeep legs. Attending Provider on DC: Maximino French MD Discharging Provider: Maximino French MD DS: Diagnosis Problem List Completed Was Problem List Reviewed/Reconciled?: Yes Hospital Course Hospital Course Hospital course: 59-year-old male with past medical history of COPD, morbid obesity, hypertension, HFrEF (25 to 30% on 2021) s/p defibrillator, IDDM, 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 He came in to the ED with complaints of bilateral lower extremity swelling, worse on the left lower extremity. Initially patient came in mildly hypertensive, hypoxic, and mildly hypothermic. Initial labs were relevant for LUDY (creatinine 1.7), elevated troponins (0.079), and elevated BNP 1104. Initial imaging included chest x-ray which showed CHF pattern, EKG which showed ventricularly paced rhythm, and lower extremity CT which showed severe cellulitis pattern. He was placed on Bumex drip for total of 10 hours initially. Patient did diuresed well on Bumex drip, but it was discontinued and was switched to Bumex 2 mg IV twice daily afterwards. Nephrology saw the patient and agreed to continue diuresis. Patient's creatinine function slightly increased, but then decreased after proper diuresis. Patient is anasarca significantly improved and his blood cultures were negative. He remained stable throughout the hospital stay. At time of discharge patient was stable enough to be discharged home. Discharge plan: Please follow-up with your PCP within 1 week of discharge. Please follow-up with your acid condenser and circulation assistant within 1 to 2-week of discharge. Please follow-up with circulation assistant for echocardiogram as outpatient. You have been started on: Cephalexin 500 Mg twice daily for 5 days Doxycycline 100 Mg twice daily for 5 days Freestyle connor for continuous blood sugar monitoring Tresiba 25 units daily, if your morning blood sugar is greater than 140, increase by 2 units daily until it is less than 140 Insulin lispro 5 units 3 times daily with meals Bumex 1 mg daily, please take 1 more tablet if you gain your weight greater than 3 pounds in a day We have discontinued cefuroxime 500 mg tablets twice daily and metolazone 5mg da smason -Continue with all other medicines as prescribed before -Recommended to return back to emergency department if your symptoms persist or does not improve. Problem list: #Anasarca likely secondary to #Acute decompensated heart failure exacerbation (HFrEF, EF 25 to 30% on 2021) #LUDY on CKD stage IIIa #Left lower extremity cellulitis #NSTEMI likely type II #Hx of HFrEF (25 to 30% EF on 2021) s/p defibrillator #IDDM #Peripheral neuropathy #CVA in 2022 with residual left lower extremity weakness #Hyperlipidemia #COPD #Active smoker Case disclosed with Attending Dr. French and My senior Dr. Ovalle PGY2. Arian Page PGY1 Senior Resident Attestation: I discussed with and supervised the internal grinder physician involved in the care of this patient. I personally saw and examined the patient and discussed the assessment and plan with the entire medicine team, including my attending. I agree with the discharge plan as documented above. Tejas Ovalle MD PGY2 Internal Medicine Status at Discharge Overall status at discharge: patient is progressing back to baseline Time Spent with Patient Time attestation: Total time spent providing and/or coordinating discharge services:>35 min Exam Vital Signs Temp Pulse Resp BP Pulse Ox O2 Del Method O2 Flow Rate 96.6 F L 83 18 145/103 H 91 L Room Air 2 10/13/24 08:00 10/13/24 08:35 10/13/24 08:00 10/13/24 08:35 10/13/24 08:00 10/13/24 08:00 10/12/24 23:23 Narrative Exam General: A/O x3, no acute distress, obese Eyes: PERRL, EOMI. Anicteric, vision grossly intact. Ears: No ear pain, no ear discharge, Hearing grossly intact. Nose: No nasal discharge. Mouth/Throat: Moist mucous membranes, no redness, no lesions. Neck: Neck supple, non-tender, no cervical lymphadenopathy. Lungs: Clear SUKHDEEP to auscultation and percussion, No accessory muscle use. Cardio: Normal S1/S2, regular rhythm, no murmurs, no JVD Abdomen: Soft, non-tender, no palpable masses, peristalsis present, no guarding or rebound. Extremities: Symmetrical, no significant deformities, 1+ edema from USKHDEEP LE upto knee level, but improving, non-tender, peripheral pulses present. Skin: No rashes, no lesions, warm to touch. Eryhtema in L LE more pronounced than R LE, improved from yesterday. Neuro: No focal neurological deficits. motor and sensory intact, mild decrease in L LE strength when compared to R LE Psych: Cooperative, appropriate mood and effect. Discharge Plan Plan Patient Disposition: HOME (Self Care) Patient condition on transfer: Stable Care Plan Goals: Please follow-up with your PCP within 1 week of discharge. Please follow-up with your acid condenser and circulation assistant within 1 to 2-week of discharge. Please follow-up with circulation assistant for echocardiogram as outpatient. You have been started on: Cephalexin 500 Mg twice daily for 5 days Doxycycline 100 Mg twice daily for 5 days Freestyle connor for continuous blood sugar monitoring Tresiba 25 units daily, if your morning blood sugar is greater than 140, increase by 2 units daily until it is less than 140 Insulin lispro 5 units 3 times daily with meals Bumex 1 mg daily, please take 1 more tablet if you gain your weight greater than 3 pounds in a day We have discontinued cefuroxime 500 mg tablets twice daily and metolazone 5mg daily -Continue with all other medicines as prescribed before -Recommended to return back to emergency department if your symptoms persist or does not improve. Prescriptions/Referrals Prescriptions/Med Rec: New cephalexin 500 mg capsule 500 mg PO BID Qty: 10 0RF doxycycline hyclate 100 mg capsule 100 mg PO BID Qty: 10 0RF (DME) FreeStyle Connor 3 Plus Sensor Device See Rx Instructions .Route Qty: 2 2RF Rx Instructions: As directed (DME) FreeStyle Connor 3 Warren Misc See Rx Instructions .Route Qty: 1 0RF Rx Instructions: As directed bumetanide 1 mg tablet 1 mg PO QDAY Qty: 30 2RF Continued cyclobenzaprine 10 mg Tablet 10 mg PO HS PRN (Reason: Muscle Spasm) atorvastatin 20 mg Tablet 20 mg PO QPM carvedilol 12.5 mg Tablet 12.5 mg PO BID Rx Instructions: must administer with a meal/food aspirin 81 mg Tablet 81 mg PO QDAY losartan 100 mg Tablet 100 mg PO QDAY insulin lispro [Humalog KwikPen Insulin] 100 unit/mL Insulin Pen 5 unit SUBCUT TID dapagliflozin propanediol [Farxiga] 10 mg Tablet 10 mg PO QDAY potassium chloride 20 mEq Tablet Extended Release 20 meq PO QDAY Changed insulin degludec [Tresiba FlexTouch U-100] 100 unit/mL (3 mL) insulin pen 25 unit SUBCUT DAILY Qty: 15 0RF Discontinued metolazone 5 mg tablet 5 mg PO DAILY cefuroxime axetil 500 mg Tablet 500 mg PO Q12H Rx Instructions: for 10 days starting 10/07/24 Referrals: Jad Lipscomb MD [Primary Care Provider] - Padma Donald MD [Physician] - Patient/Caregiver Discharge Instructions Discharge Activity: activity as tolerated Other Discharge Activity Instructions:: Please follow-up with your PCP within 1 week of discharge. Please follow-up with your acid condenser and circulation assistant within 1 to 2-week of discharge. Please follow-up with circulation assistant for echocardiogram as outpatient. You have been started on: Cephalexin 500 Mg twice daily for 5 days Doxycycline 100 Mg twice daily for 5 days Freestyle connor for continuous blood sugar monitoring Tresiba 25 units daily, if your morning blood sugar is greater than 140, increase by 2 units daily until it is less than 140 Insulin lispro 5 units 3 times daily with meals Bumex 1 mg daily, please take 1 more tablet if you gain your weight greater than 3 pounds in a day We have discontinued cefuroxime 500 mg tablets twice daily and metolazone 5mg daily -Continue with all other medicines as prescribed before -Recommended to return back to emergency department if your symptoms persist or does not improve. Education Materials: Heart Failure Dc, ED Cellulitis Print Language: Vincentian Activity Restrictions/Additional Instructions: Elevate both leg while in bed. Keep both legs moisturized. Follow up with the [facility] [phone] Stand Alone Forms: Cristina Award Info., Patient Portal Info Letter Discharge Order Discharge Orders: Discharge (Routine); Ordered 10/13/24 Ordered By: Familia Fishman Quality Discharge Quality Measures VTE prophylaxis Attestestation MD Attestation I reviewed labs, imaging, EKG, home medications and prior available records. Face to face evaluation was performed by me. I have personally examined the patient and discussed assessment and plan with the IM team. I reviewed the resident note and agree with the plan with exceptions as below. CHF exacerbation: He is diuresing well. Will discharge on p.o. Bumex 1 mg daily. Continue losartan and Coreg LUDY: Creatinine improved. Bumex as above. Outpatient follow-up with nephrology Left lower extremity cellulitis: Will discharge on Keflex/doxycycline Elevated troponin: Likely type II non-STEMI in the setting of CHF exacerbation. Troponin peaked. Ordered echocardiogram Uncontrolled diabetes mellitus with hyperglycemia: Type II. Resume home medications and monitor fingersticks Time spent is 40 minutes. More than 50% of the time was spent on patient education and coordination of care.
[2024-10-13 12:00] VITALS: BP 146/89; PULSE 80; PULSE 84; RESP 16; TEMP 36.1; O2SAT 96
[2024-10-13 14:15] VITALS: BP 125/70; PULSE 70; TEMP 36.3; O2SAT 92
== END 2024-10-13 13:58 | disposition home or self-care (01) | DRG 194 ==
LOC: SERX 08:49 → SERHOLD 15:35 → S2NX 22:38
PROVIDERS: Physician Assistant; Admitting Provider Internal Medicine; Emergency Provider Emergency Medicine; PCP Family Medicine; Visit Provider Student in an Organized Health Care Education/Training Program
DX: I13.0 Hypertensive heart and chronic kidney disease with heart failure and stage 1 through stage 4 chronic kidney disease, or unspecified chronic kidney disease (principal); I49.49 Other premature depolarization; I50.23 Acute on chronic systolic (congestive) heart failure; I50.84 End stage heart failure; I69.344 Monoplegia of lower limb following cerebral infarction affecting left non-dominant side; I87.2 Venous insufficiency (chronic) (peripheral); J44.9 Chronic obstructive pulmonary disease, unspecified; L03.116 Cellulitis of left lower limb; N17.9 Acute kidney failure, unspecified; N18.31 Chronic kidney disease, stage 3a; I21.A1 Myocardial infarction type 2; E11.22 Type 2 diabetes mellitus with diabetic chronic kidney disease; E11.40 Type 2 diabetes mellitus with diabetic neuropathy, unspecified; F17.210 Nicotine dependence, cigarettes, uncomplicated; E66.01 Morbid (severe) obesity due to excess calories; Z68.45 Body mass index [BMI] 70 or greater, adult; Z66 Do not resuscitate; F15.10 Other stimulant abuse, uncomplicated; E11.65 Type 2 diabetes mellitus with hyperglycemia
CPT/HCPCS: 36415; 71046; 73700; 76770; 80053; 82570; 83036; 83605; 83735; 83880; 84100; 84156; 84484; 85025; 87040; 87081; 93005; 93925; 93970; J0689; J1650; J1815; J1940; J2060; J3370; J3475; J3490; A9270

== ENCOUNTER → 2024-12-07 | Outpatient (CLI) | payer MEDICAID, SELFPAY ==
[2024-12-07 09:31] LABS: Basophils % (Auto) 1 % (0-2.5); Eosinophils # (Auto) 0.1 Thou/mm3 (0.0-0.5); Eosinophils % (Auto) 1 % (0-10); Hematocrit 47.2 % (41.0-53.0); Hemoglobin 15.3 g/dL (13.5-16.0); Immature Granulocytes % (Auto) 0 % (0-0); Immature Granulocytes Auto 0.02 Thou/mm3 (0.00-0.00); Lymphocytes % (Auto) 26 % (10-50); Mean Corpuscular HGB Conc 32.4 g/dl (31.0-37.0); Mean Corpuscular Hemoglobin 29.1 pg (25.0-35.0); Mean Corpuscular Volume 90 fL (80-100); Monocytes # (Auto) 0.6 Thou/mm3 (0.0-0.8); Monocytes % (Auto) 8 % (0-12); Neutrophils # (Auto) 4.7 Thou/mm3 (1.8-7.7); Neutrophils % (Auto) 64 % (37-80); Nucleated Red Blood Cell # 0.03 Thou/mm3 (0.00-0.00); Nucleated Red Blood Cell % 0 /100 WBC (0); Platelet Count 173 Thou/mm3 (140-440); RDW Standard Deviation 61.9 fL (35.1-43.9); Red Blood Count 5.25 Miln/mm3 (4.50-5.90); White Blood Count 7.5 Thou/mm3 (3.8-10.6)
[2024-12-07 09:43] LABS: Albumin, Serum 3.2 gm/dL (3.5-5.0); Anion Gap 5 (7-16); BUN/Creatinine Ratio 14 Ratio (12-20); Blood Urea Nitrogen 23 mg/dL (9-23); Calcium 8.7 mg/dL (8.3-10.6); Calcium (Corrected) 9.3 mg/dL (8.5-10.1); Carbon Dioxide 28.8 mMol/L (20.0-31.0); Chloride 104 mMol/L (98-107); Creatinine (Component) 1.6 mg/dL (0.6-1.3); Glucose 198 mg/dL (74-106); Osmolality,Calculated 285 (275-295); Phosphorous 4.3 mg/dL (2.4-5.1); Potassium 5.7 mMol/L (3.4-5.1); Sodium 138 mMol/L (136-145); eGFR 50 See Note
[2024-12-07 11:18] LABS: Glucose Estimated Average 309 mg/dL (80-131); Hemoglobin A1C 12.4 % Hgb (4.8-6.0)
== END | disposition home or self-care (01) ==
LOC: COPL 08:34
PROVIDERS: PCP Family Medicine; Referring Provider Internal Medicine; Visit Provider Internal Medicine
DX: N17.9 Acute kidney failure, unspecified (principal); E11.9 Type 2 diabetes mellitus without complications
CPT/HCPCS: 36415; 80069; 83036; 85025

== ENCOUNTER 2024-12-18 00:43 | Inpatient (IN) | payer MEDICAID, SELFPAY ==
[2024-12-18] VITALS (18 sets, daily range): BP systolic 120–153; BP diastolic 94–124; PULSE 68–124; RESP 16–95; TEMP 36.3–36.9; O2SAT 93–98; BMI 38.7
--- NOTE | 2024-12-18 00:48 | EKG_ITS ---
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: : 1965 Requested By: Tato Ayers Order Number: [id number] Reading MD: Tato Ayers Measurements Intervals [place] Rate: 118 P: -71 MS: 137 QRS: -69 QRSD: 160 T: 71 QT: 366 QTc: 514 Interpretive Statements JUNCTIONAL TACHYCARDIA WITH FREQUENT VENTRICULAR PREMATURE COMPLEXES RIGHT BUNDLE BRANCH BLOCK [120+ ms QRS DURATION, UPRIGHT V1, 40+ ms S IN I/aVL/V4/V5/V6] INFERIOR MYOCARDIAL INFARCTION , PROBABLY OLD [40+ ms Q WAVE AND/OR ST/T ABNORMALITY IN II/aVF] ANTEROSEPTAL MYOCARDIAL INFARCTION , OF INDETERMINATE AGE [40+ ms Q WAVE IN V1-V4] MARKED ST DEPRESSION, CONSIDER SUBENDOCARDIAL INJURY [0.2+ mV ST DEPRESSION] ACUTE SC Compared to ECG 10/11/2024 02:29:53 Junctional tachycardia now present Ventricular premature complex(es) now present Right bundle-branch block now present Myocardial infarct finding now present ST (T wave) deviation now present Ventricular-paced complex(es) or rhythm no longer present /store/S0/[id number]/ecg/[id number].pdf
--- NOTE | 2024-12-18 01:56 | XR_ITS ---
Examination: AP chest single view TECHNIQUE: AP portable upright chest single view Exam date and time: December 18, 2024 0210 hours Comparison October 09, 2024 INDICATIONS: Shortness of breath leg edema beginning 2 days ago. FINDINGS: Mild heart failure Mild enlargement cardiac contour with prominent vascular congestion Edema and/or pneumonia at the lung bases Cardiac leads satisfactory position IMPRESSION: Mild heart failure Edema versus pneumonia at the lung bases
--- NOTE | 2024-12-18 01:57 | PD.EDRME ---
Rapid Medical Screening Exam [facility] Arrival date/time: 12/18/24 00:43 59M with history of COPD, HTN, CHF w/defib, CVA, and renal briana presents to ED with 2 days of worsening SOB and bilateral leg swelling. Patient has been taking his meds. Patient denies URI symptoms. Chief Complaint: Shortness of Breath/Dyspnea Vital signs: Vital Signs Temperature 98.2 F 12/18/24 01:31 Pulse Rate 118 H 12/18/24 01:31 Respiratory Rate 22 H 12/18/24 01:31 Blood Pressure 153/121 H 12/18/24 01:31 Pulse Oximetry (%) 98 12/18/24 01:31 Oxygen Delivery Method Room Air 12/18/24 01:31
[2024-12-18 02:21] LABS: Basophils % (Auto) 0 % (0-2.5); Eosinophils # (Auto) 0.1 Thou/mm3 (0.0-0.5); Eosinophils % (Auto) 1 % (0-10); Hematocrit 45.9 % (41.0-53.0); Hemoglobin 15.1 g/dL (13.5-16.0); Immature Granulocytes % (Auto) 0 % (0-0); Immature Granulocytes Auto 0.02 Thou/mm3 (0.00-0.00); Lymphocytes # (Auto) 1.7 Thou/mm3 (1.0-4.8); Lymphocytes % (Auto) 21 % (10-50); Mean Corpuscular HGB Conc 32.9 g/dl (31.0-37.0); Mean Corpuscular Hemoglobin 29.7 pg (25.0-35.0); Mean Corpuscular Volume 90 fL (80-100); Monocytes # (Auto) 0.7 Thou/mm3 (0.0-0.8); Monocytes % (Auto) 9 % (0-12); Neutrophils # (Auto) 5.4 Thou/mm3 (1.8-7.7); Neutrophils % (Auto) 69 % (37-80); Nucleated Red Blood Cell % 0 /100 WBC (0); Platelet Count 216 Thou/mm3 (140-440); RDW Standard Deviation 62.3 fL (35.1-43.9); Red Blood Count 5.09 Miln/mm3 (4.50-5.90); White Blood Count 7.9 Thou/mm3 (3.8-10.6)
[2024-12-18 02:34] LABS: Alanine Aminotransferase 16 U/L (10-49); Albumin, Serum 3.6 gm/dL (3.5-5.0); Albumin/Globulin Ratio 0.9 (1.2-2.2); Alkaline Phosphatase 264 U/L (46-116); Anion Gap 9 (7-16); Aspartate Amino Transferase 25 U/L (0-34); B-Type Natriuretic Peptide 1144 pg/mL (0-100); BUN/Creatinine Ratio 16 Ratio (12-20); Bilirubin,Total 0.6 mg/dL (0.3-1.2); Blood Urea Nitrogen 31 mg/dL (9-23); Calcium 9.4 mg/dL (8.3-10.6); Calcium (Corrected) 9.7 mg/dL (8.5-10.1); Carbon Dioxide 28.1 mMol/L (20.0-31.0); Chloride 103 mMol/L (98-107); Creatinine (Component) 1.9 mg/dL (0.6-1.3); Globulin 3.9 gm/dL (2.3-3.5); Glucose 265 mg/dL (74-106); Magnesium 2.3 mg/dL (1.6-2.6); Osmolality,Calculated 294 (275-295); Potassium 4.5 mMol/L (3.4-5.1); Sodium 140 mMol/L (136-145); Total Protein 7.5 gm/dL (5.7-8.2); eGFR 40 See Note
[2024-12-18] MEDS: NITROGLYCERIN 0.4 MG SUBL BTL #25 SL (03:00)
[2024-12-18] MEDS: NITROGLYCERIN OINT 2% 1 INCH PACKET TOP (03:36)
[2024-12-18] MEDS: hydrALAZINE INJ 20 MG/ML VIAL 10 MG IV (03:39)
--- NOTE | 2024-12-18 04:18 | PD.EDSOB ---
ED SOB =RME/HPI General Chief Complaint: Shortness of Breath/Dyspnea Stated Complaint: RETAINING WATER, SOB Arrival date/time: 12/18/24 00:43 RME / HPI RME / HPI Narrative: 12/18/24 00:43 59M with history of COPD, HTN, CHF w/defib, CVA, and renal briana presents to ED with 2 days of worsening SOB and bilateral leg swelling. Patient has been taking his meds. Patient denies URI symptoms. -------- Dr. Magaña?s Main ED Evaluation: 59yo male with a history of CHF, COPD, HTN, CVA presents to the ED for a chief complaint of shortness of breath x 2-3 days. Patient states he's had progressively worsening shortness of breath for the last 2-3 days. He endorses associated chest pressure. Patient denies any N/V, fever, chills, cough or any other associated symptoms. No known allergies. Related Data Home Medications ?Medication ?Instructions ?Recorded ?Confirmed aspirin 81 mg tablet 81 mg PO QDAY 10/09/24 10/09/24 atorvastatin 20 mg tablet 20 mg PO QPM 10/09/24 10/09/24 carvedilol 12.5 mg tablet 12.5 mg PO BID 10/09/24 10/09/24 cyclobenzaprine 10 mg tablet 10 mg PO HS PRN Muscle Spasm 10/09/24 10/09/24 dapagliflozin propanediol 10 mg 10 mg PO QDAY 10/09/24 10/09/24 tablet (Farxiga) insulin lispro 100 unit/mL 5 unit subcut TID 10/09/24 10/09/24 subcutaneous pen (Humalog KwikPen (U-100) Insulin) losartan 100 mg tablet 100 mg PO QDAY 10/09/24 10/09/24 potassium chloride 20 mEq 20 meq PO QDAY 10/09/24 10/09/24 tablet,extended release Previous Rx's ?Medication ?Instructions ?Recorded blood-glucose meter,continuous #1 ea 10/13/24 (FreeStyle Connor 3 [place]) blood-glucose sensor (FreeStyle #2 ea 10/13/24 Connor 3 Plus Sensor device) bumetanide 1 mg tablet 1 mg PO QDAY #30 tabs 10/13/24 cephalexin 500 mg capsule 500 mg PO BID #10 caps 10/13/24 doxycycline hyclate 100 mg capsule 100 mg PO BID #10 caps 10/13/24 insulin degludec 100 unit/mL (3 25 unit (0.25 mL) subcut DAILY #15 10/13/24 mL) subcutaneous pen (Tresiba mL FlexTouch U-100 insulin) Allergies Allergy/AdvReac Type Severity Reaction Status Date / Time No Known Allergies Allergy Unknown Verified 12/18/24 00:45 Review of Systems Review of Systems Systems Reviewed: All systems reviewed, normal except as documented Past Medical History Past Medical History NEUROLOGIC: Positive Cerebrovascular Accident CARDIAC: Positive Cardiac Disorders, Myocardial Infarction, Hypercholesterolemia, Congestive Heart Failure, Cellulitis and Hypertension RESPIRATORY: Positive Chronic Obstructive Pulmonary Disease (COPD); Negative Asthma GENITOURINARY: Positive Genitourinary Disorders; Negative Renal Disease MUSCULOSKELETAL: Positive Arthritis ENDOCRINE: Positive Diabetes Mellitus Type 2; Negative Diabetes Mellitus Type 1 HEMATOLOGIC: Negative Sickle Cell Disease PSYCHO/SOCIAL: Positive Recreational Drug Use OTHER HISTORY: Positive Blood Transfusions Surgical History SURGICAL: Positive Cardiac Surgery and Pacemaker Social History SMOKING STATUS: Current every day smoker ED Exam Narrative Physical exam: GENERAL APPEARANCE: alert and oriented x 4, well-developed, well-nourished, no acute distress VITALS: All vitals were reviewed and the pulse ox is 98% on room air, which is normal according to my interpretation. HEENT: Normocephalic, atraumatic; pupils equal, round, reactive to light; EOMI; mucous membranes pink, moist; oropharynx clear NECK: Supple LUNGS: rales and rhonchi bilaterally; no wheezes HEART: Regular rate, regular rhythm; normal S1, S2; no murmurs ABDOMEN: non distended; normal BS; soft, no tenderness, no guarding, no rebound; no masses, no organomegaly, no hernia BACK: no CVA tenderness EXTREMITIES: atraumatic; 2+ pitting edema bilaterally NEUROLOGIC: awake; alert and oriented x4; cranial nerves II-XII grossly intact; no focal sensory or motor deficits PSYCHIATRIC: appropriate mood and affect SKIN: warm, dry, normal color; no rashes Course Course Course Narrative: CXR is ordered for determining the etiology of shortness of breath. Quality Measures none Orders Category Date Time Status EKG (ED ONLY) *Do not use* NOW Care 12/18/24 00:48 Completed Insert IV NOW Care 12/18/24 01:57 Active EKG (ED Only) Stat Exams 12/18/24 00:48 Ordered XR chest 1V portable Stat Exams 12/18/24 01:56 Taken B-Type Natriuretic Peptide Stat Lab 12/18/24 02:08 Completed BNP [B-Type Natriuretic Peptide] Stat Lab 12/18/24 04:12 Ordered CBC Stat Lab 12/18/24 02:08 Completed Comprehensive Metabolic Panel Stat Lab 12/18/24 02:08 Completed Magnesium Stat Lab 12/18/24 02:08 Completed Troponin I Stat Lab 12/18/24 02:08 Completed Troponin I Stat Lab 12/18/24 04:12 Ordered Nitroglycerin Oint 2% [Nitro-paste Oint 2%] Med 12/18/24 03:13 Discontinued 1 inch TOP X1 ONE Nitroglycerin [Nitrostat 1/150] Med 12/18/24 01:57 Discontinued 0.4 mg SL X1 ONE hydrALAZINE INJ [Apresoline Inj] Med 12/18/24 03:24 Discontinued 10 mg IV X1 ONE Vital Signs Vital signs: Vital Signs Temperature 98.2 F 12/18/24 01:31 Pulse Rate 118 H 12/18/24 01:31 Respiratory Rate 22 H 12/18/24 01:31 Blood Pressure 153/121 H 12/18/24 01:31 Pulse Oximetry (%) 98 12/18/24 01:31 Oxygen Delivery Method Room Air 12/18/24 01:31 Shortness of Breath / Dyspnea MDM Narrative MDM Narrative:: Scribe Attestation: 12/18/24 - Nicole English am scribing for and in the presence of Dr. Magaña. Patient refused to be placed on BiPaP. 0424: Discussed case with Dr. Michael from cardiology regarding consultation. Discussed patients ED course, exam findings, labs, and radiology results. States the patient does not have a STEMI and agrees to consult. 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 CXR is rotated, but shows a dual chamber pacemaker in place and cardiomegaly, according to my interpretation. EKG done at 0126, sinus tachycardia, rate of 118, left axis deviation, frequent PVCs and PACs, RBBB, Q waves in lead II, III, and avF, no acute STEMI, according to my interpretation. Medications / Prescriptions Medications or Prescriptions considered but not ordered:: none Medication administrations:: Medication Administration History Discontinued Medications Hydralazine HCl (Hydralazine Inj 20 Mg/Ml Vial) 10 mg IV X1 ONE Stop: 12/18/24 03:25 Last Admin: 12/18/24 03:39 Dose: 10 mg Documented By: RUDI Nitroglycerin (Nitroglycerin 0.4 Mg Subl Btl #25) 0.4 mg SL X1 ONE Stop: 12/18/24 01:58 Last Admin: 12/18/24 03:00 Dose: 0.4 mg Documented By: RUDI Nitroglycerin (Nitroglycerin Oint 2% 1 Inch Packet) 1 inch TOP X1 ONE Stop: 12/18/24 03:14 Last Admin: 12/18/24 03:36 Dose: 1 inch Documented By: RUDI see above Consultations Consultation(s) initiated? (list below): Yes Consultation #1 (Physician, Specialty, Details): See MDM narrative. Diagnosis Shortness of Breath Differential Diagnosis: other (STEMI, NSTEMI, hypertensive crisis, CHF exacerbation, pulmonary hypertension) Most likely diagnosis given after review of the tests above:: see clinical impression below Admission Indicated Admission indicated?: indicated Admission Request Was there a request for admission?: Yes Admission Attestation Admission request attestation: Discussed case with [] from Hospitalist service regarding admission. Discussed patients ED course, exam findings, labs, and radiology results. The Hospitalist [agrees,declines] to accept the patient for admission. Disposition Plan Disposition Plan: Admit Critical Care Time Critical Care Time Critical Care Time: Yes Total Critical Care Time (min.): 60 Attestation: The high probability of sudden, clinically significant deterioration in the patient?s condition required the highest level of my preparedness to intervene urgently. The services I provided to this patient were to treat and/or prevent clinically significant deterioration. Services included the following: chart data review, reviewing nursing notes and/or old charts, documentation time, residential sales consultant collaboration regarding findings and treatment options, medication orders and management, direct patient care, vital sign assessments and ordering, interpreting and reviewing diagnostic studies and lab tests. Aggregate critical care time includes only time during which I was engaged in work directly related to the patient?s care, as described above, whether at bedside or elsewhere in the Emergency Department. It did not include time spent performing other reported procedures or the services of residents, students, nurses or physician assistants. Discharge Plan Plan Patient Disposition: Admit Acute Care w/in Hospital Prescriptions/Referrals Prescriptions/Med Rec: No Action cyclobenzaprine 10 mg Tablet 10 mg PO HS PRN (Reason: Muscle Spasm) atorvastatin 20 mg Tablet 20 mg PO QPM carvedilol 12.5 mg Tablet 12.5 mg PO BID Rx Instructions: must administer with a meal/food aspirin 81 mg Tablet 81 mg PO QDAY losartan 100 mg Tablet 100 mg PO QDAY insulin lispro [Humalog KwikPen Insulin] 100 unit/mL Insulin Pen 5 unit SUBCUT TID dapagliflozin propanediol [Farxiga] 10 mg Tablet 10 mg PO QDAY potassium chloride 20 mEq Tablet Extended Release 20 meq PO QDAY cephalexin 500 mg capsule 500 mg PO BID Qty: 10 0RF doxycycline hyclate 100 mg capsule 100 mg PO BID Qty: 10 0RF insulin degludec [Tresiba FlexTouch U-100] 100 unit/mL (3 mL) insulin pen 25 unit SUBCUT DAILY Qty: 15 0RF (DME) FreeStyle Connor 3 Plus Sensor Device See Rx Instructions .Route Qty: 2 2RF Rx Instructions: As directed (DME) FreeStyle Connor 3 [place] Misc See Rx Instructions .Route Qty: 1 0RF Rx Instructions: As directed bumetanide 1 mg tablet 1 mg PO QDAY Qty: 30 2RF Referrals: Jad Lipscomb MD [Primary Care Provider] - In 1 week Problem List Clinical Impression: Hypertensive crisis, CHF exacerbation, Pulmonary edema, Non-ST elevation MS (NSTEMI) Patient/Caregiver Discharge Instructions Print Language: Romansh Stand Alone Forms: Cristina Award Info., Patient Portal Info Letter
--- NOTE | 2024-12-18 04:29 | PC.NURSE ---
PT ALERT AND ORIENTED COMING TO ER FROM HOME WITH COMPLAINTS OF BILATERAL LOWER LEG SWELLING AND SHORTNESS OF BREATH X2 DAYS. PT HAS BLISTERS TO LOWER EXTREMITIES THAT ARE OOZING. PT REPORTS HISTORY OF CHF, TAKES LASIX AT HOME DAILY. PT ON MONITOR.
--- NOTE | 2024-12-18 06:10 | ECHO_ITS ---
Transthoracic Echo Report Ht (in): 72 Wt (lb): 286 Exam Location: Portable Status: Emergency Real Estate Sales Associate: NIK Portillo^^^^ Indications: Procedure Performed: BP: 118 / 88 HR: 75 Technical Quality: Fair MEASUREMENTS (Male / Female) Normal Values 2D ECHO LV Diastolic Diameter PLAX 5.7 cm 4.2 - 5.9 / 3.9 - 5.3 cm LV Systolic Diameter PLAX 4.8 cm IVS Diastolic Thickness 1.2 cm 0.6 - 1.0 / 0.6 - 0.9 cm LVPW Diastolic Thickness 1.2 cm 0.6 - 1.0 / 0.6 - 0.9 cm LV Relative Wall Thickness 0.4 LVOT Diameter 1.9 cm Aortic Root Diameter 3.9 cm LA Systolic Diameter LX 3.7 cm 3.0 - 4.0 / 2.7 - 3.8 cm LV Ejection Fraction MOD BP 32.9 % >= 55 % LV Cardiac Index MOD BP 2062.1 cm?/min?m? LV Ejection Fraction MOD 4C 30.1 % LV Cardiac Index MOD 4C 2720.8 cm?/min?m? LV Ejection Fraction 4C AL 33.5 % LV Cardiac Index 4C AL 3151.2 cm?/min?m? LV Ejection Fraction MOD 2C 36.3 % LV Cardiac Index MOD 2C 1311.7 cm?/min?m? LV Ejection Fraction 2C AL 37.4 % LV Cardiac Index 2C AL 1366.4 cm?/min?m? LA Volume Index 31.5 cm?/m? 16 - 28 cm?/m? Ascending Aorta Diameter 3.5 cm DOPPLER AV Peak Velocity 112.3 cm/s AV Peak Gradient 5.0 mmHg AV Mean Gradient 5.0 mmHg AV Velocity Time Integral 19.1 cm LVOT Peak Velocity 74.6 cm/s LVOT Peak Gradient 2.2 mmHg LVOT Velocity Time Integral 10.5 cm LVOT Cardiac Index 852.6 cm?/min?m? AV Area Cont Eq vti 1.6 cm? AV Area Cont Eq pk 1.9 cm? MV Peak Velocity 97.6 cm/s MV Peak Gradient 3.8 mmHg MV Mean Velocity 62.5 cm/s MV Mean Gradient 2.0 mmHg MV Area PHT 8.1 cm? Mitral E Point Velocity 117.0 cm/s Mitral A Point Velocity 53.9 cm/s Mitral E to A Ratio 2.2 LV E' Lateral Velocity 10.9 cm/s Mitral E to LV E' Lateral Ratio 10.7 LV E' Septal Velocity 3.9 cm/s Mitral E to LV E' Septal Ratio 30.2 TR Peak Velocity 229.0 cm/s TR Peak Gradient 21.0 mmHg PV Peak Velocity 73.2 cm/s PV Peak Gradient 2.1 mmHg RVOT Peak Velocity 39.9 cm/s FINDINGS Left Ventricle The left ventricular ejection fraction is moderately decreased, estimated at 25%. There is grade II diastolic dysfunction of the left ventricle (pseudonormal filling pattern). Right Ventricle The right ventricle is normal in size and systolic function. The estimated right ventricular systolic pressure, 24 mmHg. Left Atrium The left atrium is normal by two-dimensional, color flow and Doppler imaging with no structural abnormalities, no thrombus formation present. Right Atrium The right atrium is normal by two-dimensional imaging, color flow and Doppler imaging with no structural abnormalities, no thrombus formation present. Atrial Septum The interatrial septum appears normal with no evidence of a shunt. Aorta The aorta is normal by two-dimensional, color flow and Doppler interrogation. Mitral Valve Mild mitral regurgitation. Mild mitral annular calcification. Aortic Valve Trace to mild aortic valve regurgitation. Tricuspid Valve There is mild tricuspid valve regurgitation. Pulmonic Valve The pulmonic valve is not well visualized. There is no significant pulmonic valve regurgitation. Vessels The pulmonary artery appears normal. The inferior vena cava pulmonary and hepatic veins appear normal. Pericardium The pericardium is normal by two-dimensional imaging. There is no significant pericardial effusion. CONCLUSIONS indication: CHF exacerbation Dilated cardiomyopathy with severe global hypokinesis left ventricle ejection fraction 20 to 25%. Diastolic Dysfunction II. RV appears normal with RVSP 24 mmHg. Mild mitral and tricuspid regurgitation. Gerri Taylor (Electronically Signed) Final Date: 18 December 2024 16:46
--- NOTE | 2024-12-18 06:10 | PD.HHHP ---
Documentation for date of: 12/18/24 HPI - Hospitalist History of Present Illness History of present illness: Patient is a 59 years old male with past medical history of COPD, hypertension, HFrEF, status post defibrillator, diabetes, 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 Patient was in his usual state of health until 3 days back when he started having shortness of breath and noticed increased swelling of his limbs. Patient does feel like his chest is heavier while breathing but denies any pain, palpitation, cough, fever or chills. Patient states she has been compliant with his medications. In the ED, he was found to have blood pressure of 153/121, pulse 118, respiratory rate 22. Lab results were significant for BUN/creatinine of 31/1.9, blood glucose 265, alkaline phosphatase 264, troponin 0.080, BNP 1144. Patient received nitroglycerin patch and hydralazine following which his blood pressure improved. Chest x-ray was done, which showed bilateral vascular congestion and volume overload. Past medical history: As above Past surgical history: Cholecystectomy Social history: Current smoker, smokes half pack per day. Does not drink alcohol, used to use methamphetamine, last use 4 months back. Lives with his mom, has caregiver to help him. Review of Systems Review of Systems Systems Reviewed: All systems reviewed, normal except as documented Meds Home Medications and Allergies Home Medications ?Medication ?Instructions ?Recorded ?Confirmed ?Type aspirin 81 mg tablet 81 mg PO QDAY 10/09/24 10/09/24 History atorvastatin 20 mg tablet 20 mg PO QPM 10/09/24 12/18/24 History carvedilol 12.5 mg tablet 12.5 mg PO BID 10/09/24 12/18/24 History cyclobenzaprine 10 mg tablet 10 mg PO HS PRN Muscle Spasm 10/09/24 12/18/24 History dapagliflozin propanediol 10 mg 10 mg PO QDAY 10/09/24 12/18/24 History tablet (Farxiga) insulin lispro 100 unit/mL 5 unit subcut TID 10/09/24 12/18/24 History subcutaneous pen (Humalog KwikPen (U-100) Insulin) losartan 100 mg tablet 100 mg PO QDAY 10/09/24 12/18/24 History potassium chloride 20 mEq 20 meq PO QDAY 10/09/24 10/09/24 History tablet,extended release acetaminophen 500 mg tablet 500 mg PO Q6H PRN pain 12/18/24 12/18/24 History apixaban 5 mg tablet (Eliquis) 5 mg PO BID 12/18/24 12/18/24 History cephalexin 500 mg capsule 500 mg PO TID 12/18/24 12/18/24 History furosemide 40 mg tablet 40 mg PO QDAY 12/18/24 12/18/24 History insulin degludec 200 unit/mL (3 60 unit subcut QDAY 12/18/24 12/18/24 History mL) subcutaneous pen (Tresiba FlexTouch U-200 insulin) semaglutide 0.25 mg or 0.5 mg (2 0.5 mg subcut QWEEK 12/18/24 12/18/24 History mg/1.5 mL) subcutaneous pen injector (Ozempic) Allergies Allergy/AdvReac Type Severity Reaction Status Date / Time No Known Allergies Allergy Unknown Verified 12/18/24 00:45 Exam Vital Signs Temp Pulse Resp BP Pulse Ox O2 Del Method 97.7 F 118 H 18 131/96 H 93 L Room Air 12/18/24 05:49 12/18/24 05:49 12/18/24 05:49 12/18/24 05:49 12/18/24 05:49 12/18/24 05:49 Narrative General: Alert and oriented x 4, no acute distress, obese Eyes: PERRL, EOMI. Anicteric, vision grossly intact. Mouth/Throat: Moist mucous membranes, no redness, no lesions. Neck: Neck supple, non-tender, no cervical lymphadenopathy. Lungs: Decreased air entry bilaterally, No accessory muscle use. Cardio: Normal S1/S2, regular rhythm, no murmurs, no JVD Abdomen: Soft, non-tender, distended, no palpable masses, noted to be edematous Extremities: Symmetrical, no significant deformities, 2+ edema from [place] LE upto mid/lower back/abdomen Skin: Blisters noted around right lower extremity Neuro: No focal neurological deficits. motor and sensory intact, mild decrease in l LE strength when compared to R LE Psych: Cooperative, appropriate mood and effect. Results - Hospitalist Labs Diagrams: 12/18/24 02:08 12/18/24 02:08 Labs: Short CBC 12/18/24 Range/Units 02:08 WBC 7.9 (3.8-10.6) Thou/mm3 Hgb 15.1 (13.5-16.0) g/dL Hct 45.9 (41.0-53.0) % Plt Count 216 D (140-440) Thou/mm3 BMP 12/18/24 02:08 Sodium 140 Potassium 4.5 Chloride 103 Carbon Dioxide 28.1 BUN 31 H Creatinine 1.9 H Glucose 265 H Calcium 9.4 Cardiac Enzymes 12/18/24 Range/Units 02:08 Troponin I 0.080 H* (0.0-0.045) ng/mL Liver Function 12/18/24 Range/Units 02:08 Total Bilirubin 0.6 (0.3-1.2) mg/dL AST 25 (0-34) U/L ALT 16 (10-49) U/L Alkaline Phosphatase 264 H (46-116) U/L Albumin 3.6 (3.5-5.0) gm/dL Assessment & Plan -Hospitalist Additional Assessment Patient is a 59 years old male with past medical history of COPD, hypertension, HFrEF, status post defibrillator, diabetes, 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 We will admit the patient for management of anasarca secondary to heart failure exacerbation #Anasarca #Acute heart failure exacerbation #History of HFrEF s/p defibrillator Patient has been having increasing shortness of breath and swelling of his bilateral lower extremities Chest x-ray shows vascular congestion, patient has swelling of bilateral extremities and abdomen Echocardiography from 07/19/2022 shows ejection fraction of 25 to 30%, dilated cardiomyopathy Has elevated BNP of 1144 We will start patient on aggressive diuresis with Bumex 2 mg IV twice daily We will obtain echocardiography Fluid restriction, low-sodium diet, daily weight, strict ins and out Cardiology has been consulted by ED #Elevated troponin Likely NSTEMI type II Patient has troponin of 0.080 We will obtain follow-up troponin Patient complains of chest tightness on breathing but denies any pain #LUDY on CKD Patient has BUN/creatinine of 31/1.9 today Baseline appears to be around 1.5-1.6 Avoid nephrotoxins, renally dose medications Continue to monitor with daily CHEM panel Patient on Bumex IV #Diabetes mellitus #Peripheral neuropathy Presented with a glucose of 265, hemoglobin A1c from last month 12.4 Started on Lantus 25 daily along with insulin sliding scale Diabetic diet, hypoglycemia protocol in place #CVA with residual left lower extremity weakness #Hyperlipidemia Resumed home patient's aspirin and atorvastatin #COPD #Active smoker Nicotine patch Diet: Cardiac, renal, carb consistent DVT prophylaxis: lovenox SC Code: Limited code, DO NOT INTUBATE Disposition: Telemetry for management of anasarca, CHF exacerbation and elevated troponin Maite Garrido MD Quality Measures Quality Measures none
[2024-12-18 06:17] LABS: B-Type Natriuretic Peptide 1360 pg/mL (0-100)
[2024-12-18 06:19] LABS: Troponin I 0.074 ng/mL (0.0-0.045)
[2024-12-18 07:00] LABS: Basophils # (Auto) 0.1 Thou/mm3 (0.0-0.2); Basophils % (Auto) 1 % (0-2.5); Eosinophils # (Auto) 0.1 Thou/mm3 (0.0-0.5); Eosinophils % (Auto) 1 % (0-10); Hematocrit 43.9 % (41.0-53.0); Hemoglobin 14.7 g/dL (13.5-16.0); Immature Granulocytes % (Auto) 0 % (0-0); Immature Granulocytes Auto 0.03 Thou/mm3 (0.00-0.00); Lymphocytes # (Auto) 1.9 Thou/mm3 (1.0-4.8); Lymphocytes % (Auto) 25 % (10-50); Mean Corpuscular HGB Conc 33.5 g/dl (31.0-37.0); Mean Corpuscular Hemoglobin 29.8 pg (25.0-35.0); Mean Corpuscular Volume 89 fL (80-100); Monocytes # (Auto) 0.7 Thou/mm3 (0.0-0.8); Monocytes % (Auto) 9 % (0-12); Neutrophils # (Auto) 4.9 Thou/mm3 (1.8-7.7); Neutrophils % (Auto) 64 % (37-80); Nucleated Red Blood Cell % 0 /100 WBC (0); Platelet Count 207 Thou/mm3 (140-440); RDW Standard Deviation 61.2 fL (35.1-43.9); Red Blood Count 4.94 Miln/mm3 (4.50-5.90); White Blood Count 7.6 Thou/mm3 (3.8-10.6)
[2024-12-18] MEDS: INSULIN LISPRO (AdmeLOG) 1 UNIT/0.01 ML UNIT SC ×2 (07:33→11:45)
[2024-12-18] MEDS: MORPHINE SULF INJ 10 MG/ML VIAL IVP ×3 (07:36→17:15)
--- NOTE | 2024-12-18 10:31 | PC.CC ---
Patient is a 59 year-old male who presents to the hospital for CHF Exacerbation. Kiki ALDANA made [id number] contact with patient. ASW introduced self, role, and reason for visit. Patient appeared alert and oriented to self, location, and situation. Patient confirmed information on demographic and reports to living at home with his mother. Patient reports that in the event he is unable to make his own medical decisions his decision make is his mother, Heidi Martinez . Patient reports at home he is ambulatory. Patient has caregiver that assist him in completing his ADLs. He reports he uses oxygen during the night. Patient receives primary care with Jad Lipscomb and uses [facility] for prescription medications. Upon discharge patient plans to return back home. adoption services manager to follow up with any discharge needs.
[2024-12-18] MEDS: APIXABAN 2.5 MG TABLET 5 MG PO ×2 (11:41→23:00)
[2024-12-18] MEDS: PANTOPRAZOLE 40 MG TABLET PO (11:41)
[2024-12-18] MEDS: LOSARTAN POTASSIUM 25 MG TABLET 100 MG PO (11:42)
[2024-12-18] MEDS: INSULIN GLARGINE (Lantus) 5 UNIT/0.05 ML (PER 5 UNITS) 25 UNIT SC (11:42)
[2024-12-18] MEDS: BUMETANIDE INJ 0.25 MG/ML VIAL 4 ML 2 MG IVP ×2 (12:04→23:01)
--- NOTE | 2024-12-18 14:35 | PD.RESPRO ---
Documentation for date of: 12/18/24 Subjective Subjective Interval history: No overnight events. Patient seen examined at bedside, sitting edge of bed. Patient states he feels improved, denies chest pain/pressure, but continues to endorse shortness of breath. Denies fever, chills, headache, nausea, vomiting. Follow-up echo, continue Bumex. Holding losartan. Increased insulin. Exam Vital Signs Temp Pulse Resp BP Pulse Ox O2 Del Method O2 Flow Rate 97.4 F 114 H 19 150/107 H 94 L Room Air 2 12/18/24 12:12/18/24 12:12/18/24 12:12/18/24 12:12/18/24 12:12/18/24 12:12/18/24 06:29 Narrative Exam PE: Gen: Well-developed and well-nourished. Obese. HEENT: NCAT, PERRLA, EOMI, MMM, anicteric conjunctivae. CVS: normal S1 and S2. RRR. No M/R/G. Resp: CTA B/L. No rhonchi, rales, crackles or wheezing. Diminished lung sounds due to poor body habitus. Abd: soft, non-tender, non-distended. MSK: Good ROM in BUE & BLE. No rash. Significant pitting edema up to sacral area. Neuro: CN II-XII grossly intact. Strength 5/5 in BUE & BLE. Alert and oriented x3. Psych: appropriate mood and affect. Objective Labs 12/18/24 06:48 12/18/24 02:08 Labs: Laboratory Results - last 24 hr 12/18/24 12/18/24 12/18/24 02:08 04:25 06:48 WBC 7.9 7.6 RBC 5.09 4.94 Hgb 15.1 14.7 Hct 45.9 43.9 MCV 90 89 MCH 29.7 29.8 MCHC 32.9 33.5 RDW Std Deviation 62.3 H 61.2 H Plt Count 216 D 207 Neut % (Auto) 69 64 Lymph % (Auto) [address] [place] % (Auto) 9 9 Eos % (Auto) 1 1 Baso % (Auto) 0 1 Neut # (Auto) 5.4 4.9 Lymph # (Auto) 1.[address] [place] # (Auto) 0.7 0.7 Eos # (Auto) 0.1 0.1 Baso # (Auto) 0.0 0.1 Immature Gran # (Auto) 0.02 H 0.03 H Absolute Nucleated RBC 0.00 0.00 Immature Gran % 0 0 Nucleated RBC % 0 0 Sodium 140 Potassium 4.5 Chloride 103 Carbon Dioxide 28.1 Anion Gap 9 BUN 31 H Creatinine 1.9 H Estim Creat Clear Calc 59.0 L eGFR 40 L BUN/Creatinine Ratio 16 Glucose 265 H Calculated Osmolality 294 Calcium 9.4 Corrected Calcium 9.7 Magnesium 2.3 Total Bilirubin 0.6 AST 25 ALT 16 Alkaline Phosphatase 264 H Troponin I 0.080 H* 0.074 H* B-Natriuretic Peptide 1144 H* 1360 H* Total Protein 7.5 Albumin 3.6 Globulin 3.9 H Albumin/Globulin Ratio 0.9 L Quality Measures Quality Measures VTE prophylaxis Assessment & Plan Assessment Current Active Medications: Generic Name Dose Route Start Last Admin Trade Name Freq PRN Reason Stop Dose Admin Acetaminophen 650 mg 12/18/24 06:05 Acetaminophen 325 Mg Tablet PO 01/17/25 06:04 Q6HR PRN Fever >101.5 Albuterol/Ipratropium 3 ml 12/18/24 06:05 Albuterol/Ipratropium (Duoneb) Rt Verón[place] 3 Ml Nebu INH 01/17/25 06:04 Q4HRRT PRN SHORTNESS OF BREATH OR WHEEZE Apixaban 5 mg 12/18/24 10:15 12/18/24 11:41 Apixaban 2.5 Mg Tablet PO 01/17/25 10:14 5 mg BID DELFINA Administration Atorvastatin Calcium 20 mg 12/18/24 21:00 Atorvastatin Calcium 20 Mg Tablet PO 01/17/25 20:59 QPM DELFINA Bumetanide 2 mg 12/18/24 09:00 12/18/24 12:04 Bumetanide Inj 0.25 Mg/Ml Vial 4 Ml IVP 01/17/25 08:59 2 mg BID DELFINA Administration Dextrose 25 ml 12/18/24 06:14 Dextrose 50%-Water Inj 50 Ml Syringe IV 01/17/25 06:13 Q15MIN PRN BG 50-70 responsive npo pt Dextrose 50 ml 12/18/24 06:14 Dextrose 50%-Water Inj 50 Ml Syringe IV 01/17/25 06:13 Q15MIN PRN BG <50 OR BG <70 & pt unresponsive Glucagon 1 mg 12/18/24 06:14 Glucagon Inj 1 Mg Vial IM Q15MIN PRN BG <70, and no IV access Insulin Glargine 30 unit 12/19/24 09:00 Insulin Glargine (Lantus) 5 Unit/0.05 Ml (Per 5 Units) SC 01/18/25 08:59 QDAY DELFINA Insulin Human Lispro 0 unit 12/18/24 07:30 12/18/24 11:45 Insulin Lispro (Admelog) 1 Unit/0.01 Ml Unit SC 01/17/25 07:29 4 unit AC DELFINA Administration Protocol Insulin Human Lispro 5 unit 12/18/24 17:00 Insulin Lispro (Admelog) 1 Unit/0.01 Ml Unit SC 01/17/25 16:59 AC DELFINA Losartan Potassium 100 mg 12/18/24 09:00 12/18/24 11:42 Losartan Potassium 25 Mg Tablet PO 01/17/25 08:59 100 mg QDAY DELFINA Administration Morphine Sulfate 1 mg 12/18/24 06:05 12/18/24 12:07 Morphine Sulf Inj 10 Mg/Ml Vial IVP 12/23/24 06:04 1 mg Q4HR PRN Administration PAIN SCALE 7-10 (Severe Ondansetron HCl 4 mg 12/18/24 06:05 Ondansetron Inj 2 Mg/Ml Inj 2 Ml IV 01/17/25 06:04 Q6H PRN NAUSEA OR VOMITING Protocol Oxycodone/Acetaminophen 1 tab 12/18/24 06:05 Oxycodone/Apap 5/325 Tablet PO 12/23/24 06:04 Q6HR PRN PAIN SCALE 4-6 (Moderate Pantoprazole Sodium 40 mg 12/18/24 09:00 12/18/24 11:41 Pantoprazole 40 Mg Tablet PO 01/17/25 08:59 40 mg QDAY DELFINA Administration Sennosides 1 tab 12/18/24 06:05 Senna Tablet PO 01/17/25 06:04 BID PRN CONSTIPATION Protocol Plan 59 years old male with past medical history of COPD, hypertension, HFrEF, status post defibrillator, diabetes, 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 We will admit the patient for management of anasarca secondary to heart failure exacerbation #Anasarca #Acute heart failure exacerbation #History of HFrEF s/p defibrillator #Medical noncompliance Patient has been having increasing shortness of breath and swelling of his bilateral lower extremities. Chest x-ray shows vascular congestion, patient has swelling of bilateral extremities and abdomen. Patient reports that she does not consistently take his medications, takes his diuretics every other day. Echocardiography from 07/19/2022 shows ejection fraction of 25 to 30%, dilated cardiomyopathy. Has elevated BNP of 1144, up trended to 1360. Dr. Michael consulted by ED. -Bumex 2 mg IV twice daily -Echo pending, follow-up -Fluid restriction, low-sodium diet, daily weight, strict ins and out -Cardiology consulted, appreciate recs #NSTEMI type II Patient has troponin of 0.08, down trended to 0.07. Patient complained of chest pressure with breathing, abdominal pain. -Monitor #LUDY on CKD Patient has BUN/creatinine of 31/1.9 today. Baseline appears to be around 1.5-1.6. 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 -Resumed home patient's aspirin and atorvastatin -Holding home losartan and Coreg due to acute CHF exacerbation. #COPD #Active smoker Nicotine patch Diet: Cardiac, renal, carb consistent DVT prophylaxis: lovenox SC Code: Limited code, DO NOT INTUBATE Lines: Peripheral IV Plan of care discussed with senior resident Dr. Mariscal PGY?[address] Okeefe. Derrick Hung MD PGY?1 Senior resident attestation: Patient evaluated and examined at the bedside, plan of care discussed with rest of the team including my attending physician, except as noted. Patient is a 59-year-old male, looks older than stated age, past medical history of HFrEF, status post ICD, HTN, COPD, CVA, and renal agenesis came to the ER complaining of shortness of breath and chest discomfort. At the time of evaluation patient denied any current chest comfort, Nitropatch was placed and sublingual nitro was given, which relieved his symptoms. Mild troponin elevation likely type II as patient has chronic troponin leak. 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 Brandon Michael is consulted, started on IV Bumex twice daily, elevated BNP, patient admitted to the floor for management of acute on chronic CHF with type II NSTEMI. Pending cardiology recommendations and echocardiogram. Quresh PGY2 Attending Provider Attestation/Addendum I have discussed and was present for the essential components of the history, physical examination, diagnosis, and treatment plan with the resident. I agree with the patient's care as documented by the resident and amended herein by me. Andi Silverio DO. Patient seen and evaluated this AM. In short, 59-year-old male admitted for CHF exacerbation, elevated troponin, possible COPD exacerbation and LUDY. Vital signs stable, patient afebrile overnight. Blood glucose elevated to 34 this morning. Patient awake and alert in the a.m. able to hold a normal conversation, ANO x 4. Patient did endorse to me this morning he is not compliant with his medications to include his diuretics which he states he takes every other day. CBC largely unremarkable, CMP demonstrated BUN 31, creatinine 1.9. Troponins have down trended, 0.074 last reading, BNP 1360. Echocardiogram pending, heart failure measures in place, will continue to diurese with Bumex 2 mg IV twice daily, cardiology consulted, appreciate recommendations. Although this document has been carefully reviewed, there may still be some phonetic and other typographical errors. These errors are purely grammatical due to imperfections in the software program and should not be construed in any way to compromise the substance of the
--- NOTE | 2024-12-18 17:07 | ESCONSULT_ITS ---
RE: NOELLE BRITO : 1965 DATE OF CONSULTATION: 12/18/2024 CONSULTING PHYSICIANS: Hospitalist and Dr. Maite Garrido. REASON FOR CONSULTATION: Evaluation of congestive heart failure. CHIEF COMPLAINT: Shortness of breath, leg swelling. 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 He was followed by Dr. 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 He came to the hospital with shortness of breath with progressive swelling of both lower extremities. That is the main symptom. No chest pain. He has no discomfort in the chest. He came to the hospital with acute decompensated congestive heart failure, predominant right heart failure. Initial blood pressure was high 150/120. Respiratory rate was 22. Pulse was also rapid. He was given diuretics, improving symptoms. Initial troponin was only 0.08. BNP 1144. The patient is responding to IV diuretic therapy, not having any chest pain or shortness of breath. MEDICATIONS: Please see the list. He is on multiple medications including carvedilol 12.5 mg b.i.d., atorvastatin 20 mg daily, and insulin for diabetes, losartan 100 mg daily, apixaban 5 mg twice daily, and furosemide 40 mg once a day only. Semaglutide injection 0.5 mg daily. PAST MEDICAL HISTORY: Chronic history of methamphetamine use in the past. Denies active use. Nonischemic cardiomyopathy, negative angiogram, followed by Dr. Calle, who sees him regularly. Rest of the review of systems unremarkable. PHYSICAL EXAMINATION: GENERAL: _, obese male, acutely ill, chronically ill male, alert, awake, and in no acute distress. VITAL SIGNS: Blood pressure 130/80, pulse rate is 100, respirations 18, temperature normal, pulse ox 93% on room air. HEENT: Head is atraumatic. NECK: Supple. Mild JVD. CHEST: Symmetrical. Lungs: Decreased breath sounds at the bases. HEART: S1 and S2 are regular, tachycardia. ABDOMEN: Obese and soft. /RECTAL: Not performed. EXTREMITIES: 2+ edema of both feet. DIAGNOSTIC DATA: EKG showed evidence of sinus tachycardia, right bundle branch block, nonspecific ST changes. There is also possible Q-wave in inferior leads. No acute myocardial infarction. Chest x-ray showed evidence of ICD in place and there is some right lower lobe infiltrate, haziness seen. Cardiomegaly is present. The patient appears to have [employer]ESSOR [employer]OS[employer] defibrillator. The 3 wires were seen. Last echo in 2021, ejection fraction at that time was 25%. IMPRESSION/ASSESSMENT: 1. Acutely decompressed systolic heart failure, ejection fraction of 25%. 2. Status post [employer] defibrillator implantation. 3. Acute kidney injury, chronic kidney disease. 4. Mild troponin elevation, type II troponin. 5. History of stroke with residual left lower extremity weakness. 6. History of methamphetamine use. 7. Diabetes mellitus. RECOMMENDATIONS: I agree with the current medical management including IV diuretic therapy. Continue with apixaban, atorvastatin, bumetanide 2 mg twice daily, aggressive diuresis, and management of diabetes mellitus. Continue losartan for ARB and beta-irish carvedilol to be continued as well. I would like to thank for referring this patient for cardiovascular evaluation. We will be glad to follow the patient with you. DT: 16:03:02 TT: 16:59:00 Ref: [id number] - TID: [id number] MTDD
[2024-12-18] MEDS: INSULIN LISPRO (AdmeLOG) 1 UNIT/0.01 ML UNIT 5 UNIT SC (17:12)
[2024-12-18] MEDS: ATORVASTATIN CALCIUM 20 MG TABLET PO (23:00)
[2024-12-19] VITALS (11 sets, daily range): BP systolic 100–137; BP diastolic 72–100; PULSE 60–121; RESP 14–24; TEMP 36.1–36.7; O2SAT 92–100; BMI 38.9
[2024-12-19 05:27] LABS: Basophils % (Auto) 0 % (0-2.5); Eosinophils # (Auto) 0.1 Thou/mm3 (0.0-0.5); Eosinophils % (Auto) 1 % (0-10); Hematocrit 45.5 % (41.0-53.0); Immature Granulocytes % (Auto) 0 % (0-0); Immature Granulocytes Auto 0.02 Thou/mm3 (0.00-0.00); Lymphocytes # (Auto) 1.7 Thou/mm3 (1.0-4.8); Lymphocytes % (Auto) 21 % (10-50); Mean Corpuscular Volume 91 fL (80-100); Monocytes # (Auto) 0.8 Thou/mm3 (0.0-0.8); Monocytes % (Auto) 9 % (0-12); Neutrophils # (Auto) 5.8 Thou/mm3 (1.8-7.7); Neutrophils % (Auto) 69 % (37-80); Nucleated Red Blood Cell % 0 /100 WBC (0); Platelet Count 239 Thou/mm3 (140-440); RDW Standard Deviation 62.9 fL (35.1-43.9); White Blood Count 8.4 Thou/mm3 (3.8-10.6)
[2024-12-19 05:53] LABS: Alanine Aminotransferase 14 U/L (10-49); Albumin, Serum 3.4 gm/dL (3.5-5.0); Albumin/Globulin Ratio 0.9 (1.2-2.2); Alkaline Phosphatase 249 U/L (46-116); Anion Gap 9 (7-16); Aspartate Amino Transferase 20 U/L (0-34); BUN/Creatinine Ratio 16 Ratio (12-20); Blood Urea Nitrogen 28 mg/dL (9-23); Calcium 8.9 mg/dL (8.3-10.6); Calcium (Corrected) 9.4 mg/dL (8.5-10.1); Carbon Dioxide 27.4 mMol/L (20.0-31.0); Cardiac Risk Estimate 2.9 RATIO (4.0-6.7); Chloride 103 mMol/L (98-107); Cholesterol 97 mg/dL (132-200); Creatinine (Component) 1.7 mg/dL (0.6-1.3); Globulin 3.8 gm/dL (2.3-3.5); Glucose 194 mg/dL (74-106); HDL Cholesterol 34 mg/dL (40-60); LDL Cholesterol,Calculated 44 mg/dL (0-130); Magnesium 2.1 mg/dL (1.6-2.6); Osmolality,Calculated 288 (275-295); Potassium 3.9 mMol/L (3.4-5.1); Sodium 139 mMol/L (136-145); Total Protein 7.2 gm/dL (5.7-8.2); Triglycerides 96 mg/dL (30-150); eGFR 46 See Note
[2024-12-19] MEDS: carVEDILOL 12.5 MG TABLET PO ×2 (08:16→20:28)
[2024-12-19] MEDS: PANTOPRAZOLE 40 MG TABLET PO (08:16)
[2024-12-19] MEDS: APIXABAN 2.5 MG TABLET 5 MG PO ×2 (08:16→20:28)
[2024-12-19] MEDS: DAPAGLIFLOZIN PROPANEDIOL 5 MG TABLET 10 MG PO (08:16)
[2024-12-19] MEDS: BUMETANIDE INJ 0.25 MG/ML VIAL 4 ML 2 MG IVP ×2 (08:17→20:27)
[2024-12-19] MEDS: INSULIN LISPRO (AdmeLOG) 1 UNIT/0.01 ML UNIT SC ×3 (08:18→17:04)
[2024-12-19] MEDS: INSULIN LISPRO (AdmeLOG) 1 UNIT/0.01 ML UNIT 5 UNIT SC ×3 (08:18→17:04)
[2024-12-19] MEDS: INSULIN GLARGINE (Lantus) 5 UNIT/0.05 ML (PER 5 UNITS) 30 UNIT SC (08:19)
[2024-12-19] MEDS: LOSARTAN POTASSIUM 25 MG TABLET 100 MG PO (08:34)
--- NOTE | 2024-12-19 10:40 | EKG_ITS ---
[facility] Test Date: 2024-12-19 Pat Name: NOELLE BRITO [facility] Gender: Male [employer] Department: MARIN : 1965 Requested By: Sherri Nieto Order Number: [id number] Reading MD: Sherri Nieto Measurements Intervals [place] Rate: 108 P: [place]: QRS: -62 QRSD: 185 T: 81 QT: 406 QTc: 545 Interpretive Statements UNCERTAIN IRREGULAR RHYTHM INTRAVENTRICULAR CONDUCTION DELAY INFERIOR MYOCARDIAL INFARCTION , OF INDETERMINATE AGE WITH POSTERIOR EXTENSION Compared to ECG 12/18/2024 01:26:46 Intraventricular conduction delay now present Junctional tachycardia no longer present Ventricular premature complex(es) no longer present Right bundle-branch block no longer present ST (T wave) deviation no longer present Myocardial infarct finding still present /store/S0/[id number]/ecg/[id number].pdf
--- NOTE | 2024-12-19 10:40 | ESPR_ITS ---
RE: CHACE MARTINEZ : 1965 DATE OF SERVICE: 12/19/2024 SUBJECTIVE: Chace Martinez is a 59-year-old male with drug-induced methamphetamine cardiomyopathy, chronic systolic heart failure. He came to the hospital with shortness of breath, congestive heart failure, predominant right heart failure, responding well to diuretic therapy, not having any chest pain or shortness of breath. Echo showed severe LV dysfunction. OBJECTIVE: Vital Signs: Blood pressure 100/76 mmHg. Heart rate is 100-120 bpm. He remains tachycardic. Temperature is normal. Oxygen saturation on room air is 93%. _ Neck: Supple. JVD is present. Chest: Symmetrical. Lungs: Clear. Heart: Sounds regular. Tachycardia. Abdomen: Thin. Obese. Soft. Extremities: Chronic edema of both feet. /rectal: Not performed. IMPRESSION: 1. Acutely decompensated systolic heart failure. 2. Nonischemic cardiomyopathy due to methamphetamine abuse. 3. Obesity. 4. Diabetes mellitus. 5. Peripheral neuropathy. RECOMMENDATIONS: Continue diuretic therapy. Continue medical management. We will agree with the guideline-directed medical management. No further workup is necessary. DT: 07:39:08 TT: 10:26:00 Ref: [id number] - TID: [id number] [facility]
[2024-12-19] MEDS: POTASSIUM CHLORIDE 10% 20 MEQ/15 ML UDC GT (10:56)
--- NOTE | 2024-12-19 12:13 | ESPR_ITS ---
Documentation for date of: 12/19/24 Subjective Subjective Interval history: Patient was seen and examined at bedside. No acute overnight events. Patient had negative balance of 1300 mL. Today upon my evaluation patient was saturating in room air 90, denied any shortness of breath, chest pain, palpitation. Patient stated that he significantly decreased lower extremity edema, and overall has been feeling much better. Echo was done yesterday, which revealed EF of 20 to 25%, severe dilated cardiomyopathy with systolic dysfunction. Plan is to continue Bumex 2 mg twice daily daily, close monitoring urine output. CMP revealed improvement of creatinine, which is down from 1.9- 1.7, EGFR of 45 6. Plan is to optimize GDMT with Coreg 12.5 twice daily, losartan 100 daily, Farxiga 10 mg daily, continue home Eliquis, continue close monitor hemodynamics.. Cardiology is on board, will follow-up with further recs. Exam Vital Signs Temp Pulse Resp BP Pulse Ox O2 Del Method O2 Flow Rate 97.2 F 60 22 H 128/90 H 96 Room Air 2 12/19/24 12:00 12/19/24 12:00 12/19/24 12:00 12/19/24 12:00 12/19/24 12:00 12/19/24 12:00 12/19/24 04:00 Narrative Exam Gen: Well-developed and well-nourished. Obese. HEENT: NCAT, PERRLA, EOMI, MMM, anicteric conjunctivae. CVS: normal S1 and S2. RRR. No M/R/G. Resp: CTA B/L. No rhonchi, rales, crackles or wheezing. Diminished lung sounds due to poor body habitus. Abd: soft, non-tender, non-distended. MSK: Good ROM in BUE & BLE. No rash. 2+ pitting edema in bilateral lower extremities, chronic venous stasis changes and bilateral lower extremity Neuro: CN II-XII grossly intact. Strength 5/5 in BUE & BLE. Alert and oriented x3. Psych: appropriate mood and affect. Objective Labs 12/19/24 05:10 12/19/24 05:10 Labs: Laboratory Results - last 24 hr 12/19/24 05:10 WBC 8.4 RBC 5.00 Hgb 15.0 Hct 45.5 MCV 91 MCH 30.0 MCHC 33.0 RDW Std Deviation 62.9 H Plt Count 239 D Neut % (Auto) 69 Lymph % (Auto) 21 [place] % (Auto) 9 Eos % (Auto) 1 Baso % (Auto) 0 Neut # (Auto) 5.8 Lymph # (Auto) 1.7 [place] # (Auto) 0.8 Eos # (Auto) 0.1 Baso # (Auto) 0.0 Immature Gran # (Auto) 0.02 H Absolute Nucleated RBC 0.00 Immature Gran % 0 Nucleated RBC % 0 Sodium 139 Potassium 3.9 D Chloride 103 Carbon Dioxide 27.4 Anion Gap 9 BUN 28 H Creatinine 1.7 H Estim Creat Clear Calc 66.0 eGFR 46 L BUN/Creatinine Ratio 16 Glucose 194 H D Calculated Osmolality 288 Calcium 8.9 Corrected Calcium 9.4 Phosphorus 4.0 Magnesium 2.1 Total Bilirubin 1.0 AST 20 ALT 14 Alkaline Phosphatase 249 H Total Protein 7.2 Albumin 3.4 L Globulin 3.8 H Albumin/Globulin Ratio 0.9 L Triglycerides 96 Cholesterol 97 L LDL Cholesterol, Calc 44 HDL Cholesterol 34 L Cholesterol/HDL Ratio 2.9 L Quality Measures Quality Measures VTE prophylaxis Assessment & Plan Assessment Current Active Medications: Generic Name Dose Route Start Last Admin Trade Name Freq PRN Reason Stop Dose Admin Acetaminophen 650 mg 12/18/24 06:05 Acetaminophen 325 Mg Tablet PO 01/17/25 06:04 Q6HR PRN Fever >101.5 Albuterol/Ipratropium 3 ml 12/18/24 06:05 Albuterol/Ipratropium (Duoneb) Rt Verón[place] 3 Ml Nebu INH 01/17/25 06:04 Q4HRRT PRN SHORTNESS OF BREATH OR WHEEZE Apixaban 5 mg 12/18/24 10:15 12/19/24 08:16 Apixaban 2.5 Mg Tablet PO 01/17/25 10:14 5 mg BID DELFINA Administration Atorvastatin Calcium 20 mg 12/18/24 21:00 12/18/24 23:00 Atorvastatin Calcium 20 Mg Tablet PO 01/17/25 20:59 20 mg QPM DELFINA Administration Bumetanide 2 mg 12/18/24 09:00 12/19/24 08:17 Bumetanide Inj 0.25 Mg/Ml Vial 4 Ml IVP 01/17/25 08:59 2 mg BID DELFINA Administration Carvedilol 12.5 mg 12/19/24 09:00 12/19/24 08:16 Carvedilol 12.5 Mg Tablet PO 01/18/25 08:59 12.5 mg BID DELFINA Administration Dapagliflozin 10 mg 12/19/24 09:00 12/19/24 08:16 Dapagliflozin Propanediol 5 Mg Tablet PO 01/18/25 08:59 10 mg QDAY DELFINA Administration Dextrose 25 ml 12/18/24 06:14 Dextrose 50%-Water Inj 50 Ml Syringe IV 01/17/25 06:13 Q15MIN PRN BG 50-70 responsive npo pt Dextrose 50 ml 12/18/24 06:14 Dextrose 50%-Water Inj 50 Ml Syringe IV 01/17/25 06:13 Q15MIN PRN BG <50 OR BG <70 & pt unresponsive Glucagon 1 mg 12/18/24 06:14 Glucagon Inj 1 Mg Vial IM Q15MIN PRN BG <70, and no IV access Insulin Glargine 30 unit 12/19/24 09:00 12/19/24 08:19 Insulin Glargine (Lantus) 5 Unit/0.05 Ml (Per 5 Units) SC 01/18/25 08:59 30 unit QDAY DELFINA Administration Insulin Human Lispro 0 unit 12/18/24 07:30 12/19/24 08:18 Insulin Lispro (Admelog) 1 Unit/0.01 Ml Unit SC 01/17/25 07:29 2 unit AC DELFINA Administration Protocol Insulin Human Lispro 5 unit 12/18/24 17:00 12/19/24 08:18 Insulin Lispro (Admelog) 1 Unit/0.01 Ml Unit SC 01/17/25 16:59 5 unit AC DELFINA Administration Labetalol HCl 10 mg 12/18/24 19:30 Labetalol Inj 5 Mg/Ml Vial 20 Ml IVP 01/17/25 19:29 Q6H PRN SBP > 170 Losartan Potassium 100 mg 12/18/24 09:00 12/19/24 08:34 Losartan Potassium 25 Mg Tablet PO 01/17/25 08:59 100 mg QDAY DELFINA Administration Morphine Sulfate 1 mg 12/18/24 06:05 12/18/24 17:15 Morphine Sulf Inj 10 Mg/Ml Vial IVP 12/23/24 06:04 1 mg Q4HR PRN Administration PAIN SCALE 7-10 (Severe Ondansetron HCl 4 mg 12/18/24 06:05 Ondansetron Inj 2 Mg/Ml Inj 2 Ml IV 01/17/25 06:04 Q6H PRN NAUSEA OR VOMITING Protocol Oxycodone/Acetaminophen 1 tab 12/18/24 06:05 Oxycodone/Apap 5/325 Tablet PO 12/23/24 06:04 Q6HR PRN PAIN SCALE 4-6 (Moderate Pantoprazole Sodium 40 mg 12/18/24 09:00 12/19/24 08:16 Pantoprazole 40 Mg Tablet PO 01/17/25 08:59 40 mg QDAY DELFINA Administration Sennosides 1 tab 12/18/24 06:05 Senna Tablet PO 01/17/25 06:04 BID PRN CONSTIPATION Protocol Plan 59 years old male with past medical history of COPD, hypertension, HFrEF, status post defibrillator, diabetes, 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 We will admit the patient for management of anasarca secondary to heart failure exacerbation #Acute heart failure exacerbation #History of HFrEF s/p ICD #Medical noncompliance Patient has been having increasing shortness of breath and swelling of his bilateral lower extremities. Chest x-ray shows vascular congestion, patient has swelling of bilateral extremities. Patient reports that she does not consistently take his medications, takes his diuretics every other day. Echocardiography from 07/19/2022 shows ejection fraction of 25 to 30%, dilated cardiomyopathy. Has elevated BNP of 1144, up trended to 1360. Dr. Michael consulted by ED. ECHO: Dilated cardiomyopathy with severe global hypokinesis left ventricle ejection fraction 20 to 25%. Diastolic Dysfunction II. RV appears normal with RVSP 24 mmHg. Mild mitral and tricuspid regurgitation. -Bumex 2 mg IV twice daily -Optimize GDMT therapy with Coreg 12.5 twice daily, losartan 100 daily, Farxiga daily. Patient might need spironolactone on discharge. Plan is to monitor hemodynamics. -Fluid restriction, low-sodium diet, daily weight, strict ins and out -Cardiology consulted, appreciate recs #NSTEMI type II, demand ischemia Patient has troponin of 0.08, down trended to 0.07. -Monitor #LUDY on CKD-resolved #CKD, diabetic nephropathy. Patient has BUN/creatinine of 31/1.9 today. Baseline appears to be around 1.5- 1.6. 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 -Resumed home patient's aspirin and atorvastatin -Holding home losartan and Coreg due to acute CHF exacerbation. #COPD #Active smoker Nicotine patch Diet: Cardiac, renal, carb consistent DVT prophylaxis: lovenox SC Code: Limited code, DO NOT INTUBATE Lines: Peripheral IV Patient care was discussed with attending physician Dr. Nusrat Monahan MD PGY-2 Attending Provider Attestation/Addendum I have discussed and was present for the essential components of the history, physical examination, diagnosis, and treatment plan with the resident. I agree with the patient's care as documented by the resident and amended herein by me. Andi Silverio, DO. Patient seen and evaluated this AM. No acute events overnight, vital signs stable, patient afebrile, I/O210/1520. Weight reading at home 30 kg today. Blood glucose 184 this morning. CBC largely unremarkable, BMP shows a downtrending creatinine to 1.7 today, most likely close to his baseline. Echo demonstrated Dilated cardiomyopathy with severe global hypokinesis with an EF estimated to be 20 to 25%. Stage II diastolic dysfunction noted. Will continue medication regimen as is today however will resume losartan and likely start spironolactone. Cardiology consulted, appreciate recommendations. Although this document has been carefully reviewed, there may still be some phonetic and other typographical errors. These errors are purely grammatical due to imperfections in the software program and should not be construed in any way to compromise the substance of the patient's medical care during this visit.
[2024-12-19] MEDS: ATORVASTATIN CALCIUM 20 MG TABLET PO (20:28)
[2024-12-20] VITALS (14 sets, daily range): BP systolic 100–131; BP diastolic 77–104; PULSE 40–124; RESP 12–98; TEMP 36.1–36.6; O2SAT 93–97; BMI 38.9
--- NOTE | 2024-12-20 02:25 | PC.NURSE ---
0225 Dr. Dinero at bedside, informed dr of pts heart monitor showing multiple PVCs, jumping into different rhythms, HR going up and down, Pt asymptomatic. EKG and Potassium 20mEq PO X1 ordered.
--- NOTE | 2024-12-20 02:38 | EKG_ITS ---
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
[2024-12-20] MEDS: POTASSIUM CHLORIDE 20 mEq TABCR PO (02:54)
[2024-12-20 05:33] LABS: Basophils % (Auto) 1 % (0-2.5); Eosinophils # (Auto) 0.2 Thou/mm3 (0.0-0.5); Eosinophils % (Auto) 2 % (0-10); Hematocrit 45.6 % (41.0-53.0); Hemoglobin 15.1 g/dL (13.5-16.0); Immature Granulocytes % (Auto) 0 % (0-0); Immature Granulocytes Auto 0.02 Thou/mm3 (0.00-0.00); Lymphocytes # (Auto) 2.3 Thou/mm3 (1.0-4.8); Lymphocytes % (Auto) 30 % (10-50); Mean Corpuscular HGB Conc 33.1 g/dl (31.0-37.0); Mean Corpuscular Hemoglobin 29.7 pg (25.0-35.0); Mean Corpuscular Volume 90 fL (80-100); Monocytes # (Auto) 0.8 Thou/mm3 (0.0-0.8); Monocytes % (Auto) 10 % (0-12); Neutrophils # (Auto) 4.5 Thou/mm3 (1.8-7.7); Neutrophils % (Auto) 57 % (37-80); Nucleated Red Blood Cell # 0.02 Thou/mm3 (0.00-0.00); Nucleated Red Blood Cell % 0 /100 WBC (0); Platelet Count 222 Thou/mm3 (140-440); RDW Standard Deviation 63.2 fL (35.1-43.9); Red Blood Count 5.08 Miln/mm3 (4.50-5.90); White Blood Count 7.9 Thou/mm3 (3.8-10.6)
[2024-12-20 05:58] LABS: Alanine Aminotransferase 12 U/L (10-49); Albumin, Serum 3.4 gm/dL (3.5-5.0); Albumin/Globulin Ratio 0.9 (1.2-2.2); Alkaline Phosphatase 232 U/L (46-116); Anion Gap 9 (7-16); Aspartate Amino Transferase 18 U/L (0-34); BUN/Creatinine Ratio 15 Ratio (12-20); Bilirubin,Total 0.7 mg/dL (0.3-1.2); Blood Urea Nitrogen 27 mg/dL (9-23); Calcium 8.3 mg/dL (8.3-10.6); Calcium (Corrected) 8.8 mg/dL (8.5-10.1); Carbon Dioxide 28.7 mMol/L (20.0-31.0); Chloride 100 mMol/L (98-107); Creatinine (Component) 1.8 mg/dL (0.6-1.3); Estimated Creatinine Clearance 62.4 mL/min (>60); Globulin 3.6 gm/dL (2.3-3.5); Glucose 172 mg/dL (74-106); Magnesium 1.9 mg/dL (1.6-2.6); Osmolality,Calculated 284 (275-295); Phosphorous 4.3 mg/dL (2.4-5.1); Sodium 138 mMol/L (136-145); eGFR 43 See Note
[2024-12-20] MEDS: INSULIN LISPRO (AdmeLOG) 1 UNIT/0.01 ML UNIT SC ×3 (08:11→17:22)
[2024-12-20] MEDS: INSULIN GLARGINE (Lantus) 5 UNIT/0.05 ML (PER 5 UNITS) 30 UNIT SC (08:12)
[2024-12-20] MEDS: BUMETANIDE INJ 0.25 MG/ML VIAL 4 ML 2 MG IVP ×2 (08:12→20:44)
[2024-12-20] MEDS: APIXABAN 2.5 MG TABLET 5 MG PO ×2 (08:13→20:45)
[2024-12-20] MEDS: DAPAGLIFLOZIN PROPANEDIOL 5 MG TABLET 10 MG PO (08:13)
[2024-12-20] MEDS: PANTOPRAZOLE 40 MG TABLET PO (08:13)
[2024-12-20] MEDS: LOSARTAN POTASSIUM 25 MG TABLET 100 MG PO (08:13)
[2024-12-20] MEDS: INSULIN LISPRO (AdmeLOG) 1 UNIT/0.01 ML UNIT 7 UNIT SC ×2 (11:26→17:28)
--- NOTE | 2024-12-20 15:09 | PD.RESPRO ---
Documentation for date of: 12/20/24 Subjective Subjective Interval history: ON: Patient had rapid heart rate, EKG showed paced rhythm. Patient seen examined sitting at edge of bed, resting comfortably. Patient endorses feeling well, back to baseline. Denies fevers, chills, shortness of breath, chest pain, weakness, fatigue, headache, nausea, vomiting. Continue to monitor for diuresis. Possible discharge tomorrow. Increased short acting insulin. Exam Vital Signs Temp Pulse Resp BP Pulse Ox O2 Del Method O2 Flow Rate 97.2 F 86 18 108/77 95 Room Air 2 12/20/24 12:00 12/20/24 13:53 12/20/24 13:53 12/20/24 12:00 12/20/24 12:00 12/20/24 12:00 12/20/24 13:53 Narrative Exam PE: Gen: Well-developed and well-nourished. Obese. HEENT: NCAT, PERRLA, EOMI, MMM, anicteric conjunctivae. CVS: normal S1 and S2. No M/R/G. Irregular regular rate and tachycardia. Resp: CTA B/L. No rhonchi, rales, crackles or wheezing. Diminished lung sounds due to poor body habitus. Abd: soft, non-tender, non-distended. MSK: Good ROM in BUE & BLE. No rash. 2+ pitting edema bilateral lower extremities. Neuro: CN II-XII grossly intact. Strength 5/5 in BUE & BLE. Alert and oriented x3. Psych: appropriate mood and affect. Objective Labs 12/20/24 04:47 12/20/24 04:47 Labs: Laboratory Results - last 24 hr 12/20/24 04:47 WBC 7.9 RBC 5.08 Hgb 15.1 Hct 45.6 MCV 90 MCH 29.7 MCHC 33.1 RDW Std Deviation 63.2 H Plt Count 222 Neut % (Auto) 57 Lymph % (Auto) 30 Angelina % (Auto) 10 Eos % (Auto) 2 Baso % (Auto) 1 Neut # (Auto) 4.5 Lymph # (Auto) 2.3 Angelina # (Auto) 0.8 Eos # (Auto) 0.2 Baso # (Auto) 0.0 Immature Gran # (Auto) 0.02 H Absolute Nucleated RBC 0.02 H Immature Gran % 0 Nucleated RBC % 0 Sodium 138 Potassium 4.0 Chloride 100 Carbon Dioxide 28.7 Anion Gap 9 BUN 27 H Creatinine 1.8 H Estim Creat Clear Calc 62.4 eGFR 43 L BUN/Creatinine Ratio 15 Glucose 172 H Calculated Osmolality 284 Calcium 8.3 Corrected Calcium 8.8 Phosphorus 4.3 Magnesium 1.9 Total Bilirubin 0.7 AST 18 ALT 12 Alkaline Phosphatase 232 H Total Protein 7.0 Albumin 3.4 L Globulin 3.6 H Albumin/Globulin Ratio 0.9 L Quality Measures Quality Measures VTE prophylaxis Assessment & Plan Assessment Current Active Medications: Generic Name Dose Route Start Last Admin Trade Name Freq PRN Reason Stop Dose Admin Acetaminophen 650 mg 12/18/24 06:05 Acetaminophen 325 Mg Tablet PO 01/17/25 06:04 Q6HR PRN Fever >101.5 Albuterol/Ipratropium 3 ml 12/18/24 06:05 Albuterol/Ipratropium (Duoneb) Rt Verónica 3 Ml Nebu INH 01/17/25 06:04 Q4HRRT PRN SHORTNESS OF BREATH OR WHEEZE Apixaban 5 mg 12/18/24 10:15 12/20/24 08:13 Apixaban 2.5 Mg Tablet PO 01/17/25 10:14 5 mg BID DELFINA Administration Atorvastatin Calcium 20 mg 12/18/24 21:00 12/19/24 20:28 Atorvastatin Calcium 20 Mg Tablet PO 01/17/25 20:59 20 mg QPM DELFINA Administration Bumetanide 2 mg 12/18/24 09:00 12/20/24 08:12 Bumetanide Inj 0.25 Mg/Ml Vial 4 Ml IVP 01/17/25 08:59 2 mg BID DELFINA Administration Carvedilol 12.5 mg 12/19/24 09:00 12/20/24 08:17 Carvedilol 12.5 Mg Tablet PO 01/18/25 08:59 Not Given BID DELFINA Dapagliflozin 10 mg 12/19/24 09:00 12/20/24 08:13 Dapagliflozin Propanediol 5 Mg Tablet PO 01/18/25 08:59 10 mg QDAY DELFINA Administration Dextrose 25 ml 12/18/24 06:14 Dextrose 50%-Water Inj 50 Ml Syringe IV 01/17/25 06:13 Q15MIN PRN BG 50-70 responsive npo pt Dextrose 50 ml 12/18/24 06:14 Dextrose 50%-Water Inj 50 Ml Syringe IV 01/17/25 06:13 Q15MIN PRN BG <50 OR BG <70 & pt unresponsive Glucagon 1 mg 12/18/24 06:14 Glucagon Inj 1 Mg Vial IM Q15MIN PRN BG <70, and no IV access Insulin Glargine 30 unit 12/19/24 09:00 12/20/24 08:12 Insulin Glargine (Lantus) 5 Unit/0.05 Ml (Per 5 Units) SC 01/18/25 08:59 30 unit QDAY DELFINA Administration Insulin Human Lispro 0 unit 12/18/24 07:30 12/20/24 11:26 Insulin Lispro (Admelog) 1 Unit/0.01 Ml Unit SC 01/17/25 07:29 4 unit AC DELFINA Administration Protocol Insulin Human Lispro 7 unit 12/20/24 11:30 12/20/24 11:26 Insulin Lispro (Admelog) 1 Unit/0.01 Ml Unit SC 01/19/25 11:29 7 unit AC DELFINA Administration Labetalol HCl 10 mg 12/18/24 19:30 Labetalol Inj 5 Mg/Ml Vial 20 Ml IVP 01/17/25 19:29 Q6H PRN SBP > 170 Losartan Potassium 100 mg 12/18/24 09:00 12/20/24 08:13 Losartan Potassium 25 Mg Tablet PO 01/17/25 08:59 100 mg QDAY DELFINA Administration Morphine Sulfate 1 mg 12/18/24 06:05 12/18/24 17:15 Morphine Sulf Inj 10 Mg/Ml Vial IVP 12/23/24 06:04 1 mg Q4HR PRN Administration PAIN SCALE 7-10 (Severe Ondansetron HCl 4 mg 12/18/24 06:05 Ondansetron Inj 2 Mg/Ml Inj 2 Ml IV 01/17/25 06:04 Q6H PRN NAUSEA OR VOMITING Protocol Oxycodone/Acetaminophen 1 tab 12/18/24 06:05 Oxycodone/Apap 5/325 Tablet PO 12/23/24 06:04 Q6HR PRN PAIN SCALE 4-6 (Moderate Pantoprazole Sodium 40 mg 12/18/24 09:00 12/20/24 08:13 Pantoprazole 40 Mg Tablet PO 05/04/25 08:59 40 mg QDAY DELFINA Administration Sennosides 1 tab 12/18/24 06:05 Senna Tablet PO 01/17/25 06:04 BID PRN CONSTIPATION Protocol Plan 59 years old male with past medical history of COPD, hypertension, HFrEF, status post defibrillator, diabetes, 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 We will admit the patient for management of anasarca secondary to heart failure exacerbation #Acute heart failure exacerbation #History of HFrEF s/p ICD #Medical noncompliance Patient has been having increasing shortness of breath and swelling of his bilateral lower extremities. Chest x-ray shows vascular congestion, patient has swelling of bilateral extremities. Patient reports that she does not consistently take his medications, takes his diuretics every other day. Echocardiography from 07/19/2022 shows ejection fraction of 25 to 30%, dilated cardiomyopathy. Has elevated BNP of 1144, up trended to 1360. Dr. Michael consulted by ED. ECHO: Dilated cardiomyopathy with severe global hypokinesis left ventricle ejection fraction 20 to 25%. Diastolic Dysfunction II. RV appears normal with RVSP 24 mmHg. Mild mitral and tricuspid regurgitation. -Bumex 2 mg IV twice daily -Optimize GDMT therapy with Coreg 12.5 twice daily, losartan 100 daily, Farxiga daily. Patient might need spironolactone on discharge. Plan is to monitor hemodynamics. -Fluid restriction, low-sodium diet, daily weight, strict ins and out -Cardiology consulted, appreciate recs #NSTEMI type II, demand ischemia Patient has troponin of 0.08, down trended to 0.07. -Monitor #LUDY on CKD-resolved #CKD, diabetic nephropathy. Patient has BUN/creatinine of 31/1.9 today. Baseline appears to be around 1.5-1.6. 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 -Resumed home patient's aspirin and atorvastatin -Holding home losartan and Coreg due to acute CHF exacerbation. #COPD #Active smoker Nicotine patch Diet: Cardiac, renal, carb consistent DVT prophylaxis: lovenox SC Code: Limited code, DO NOT INTUBATE Lines: Peripheral IV Plan of care discussed with attending Dr. Silverio. Derrick Hung MD PGY?1 Attending Provider Attestation/Addendum I have discussed and was present for the essential components of the history, physical examination, diagnosis, and treatment plan with the resident. I agree with the patient's care as documented by the resident and amended herein by me. Andi Silverio, DO. Patient seen and evaluated this AM. No acute events overnight, blood pressure soft this morning 100/78, I's and O's 1680/4570. 130 kg noted for the patient's weight. CBC unremarkable, CMP significant for a BUN of 27 and a creatinine of 1.8, a slight uptrend. Physical therapy evaluated the patient the patient is ambulating with no issue. Will continue to diurese the patient and continue Eliquis, atorvastatin and Coreg as well as Jardiance and losartan. Of note, the patient was very anxious and wanted to leave today, we explained the severity of his condition and the need to stay for additional management. He understood and will decide to stay at this time. Cardiology consulted, appreciate recommendations. Although this document has been carefully reviewed, there may still be some phonetic and other typographical errors. These errors are purely grammatical due to imperfections in the software program and should not be construed in any way to compromise the substance of the patient's medical care during this visit.
--- NOTE | 2024-12-20 20:22 | ESPR_ITS ---
RE: NOELLE BRITO : 1965 DATE OF SERVICE: 12/20/2024 SUBJECTIVE: The patient is a 59-year-old male admitted to the hospital with shortness of breath, congestive heart failure, predominant right heart failure symptoms, clinically appears to improve significantly. His leg swelling improved a lot. He is not having any shortness of breath or chest pain. OBJECTIVE: Vital Signs: His vital sign remains stable. Blood pressure is 108/77, pulse 86, respirations 18, temperature is normal. Neck: Supple. No JVD. Lungs: Decreased breath sounds. Heart: Heart sounds are distant. S1 and S2 distant. Abdomen: Thin and soft. IMPRESSION: 1. Acutely decompensated chronic systolic heart failure. 2. Nonischemic cardiomyopathy. 3. Status post cardiac resynchronization therapy implantation. 4. Diabetes mellitus. 5. Mild troponin elevation, insignificant. 6. Peripheral neuropathy. 7. History of stroke with residual left-sided weakness. RECOMMENDATIONS: Continue present medications. He appears to be clinically stable, when he is fairly stable discharged home. 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 Continue the current management including carvedilol 12.5 mg twice daily for beta-irish and losartan 100 mg daily oral Bumex, to be discharged home on oral bumetanide. DT: 18:25:33 TT: 19:52:00 Ref: [id number] - TID: [id number]
[2024-12-20] MEDS: ATORVASTATIN CALCIUM 20 MG TABLET PO (20:44)
[2024-12-20] MEDS: carVEDILOL 12.5 MG TABLET PO (20:45)
[2024-12-21] VITALS: BP 115/76; PULSE 121; PULSE 75; RESP 16; TEMP 35.9; O2SAT 99
[2024-12-21 04:00] VITALS: BP 108/85; PULSE 106; PULSE 120; RESP 17; TEMP 36.2; O2SAT 93
[2024-12-21 06:00] VITALS: BMI 37.7
[2024-12-21 06:19] LABS: Alanine Aminotransferase 13 U/L (10-49); Albumin, Serum 3.3 gm/dL (3.5-5.0); Albumin/Globulin Ratio 0.8 (1.2-2.2); Alkaline Phosphatase 264 U/L (46-116); Anion Gap 11 (7-16); Aspartate Amino Transferase 22 U/L (0-34); BUN/Creatinine Ratio 13 Ratio (12-20); Bilirubin,Total 0.6 mg/dL (0.3-1.2); Blood Urea Nitrogen 23 mg/dL (9-23); Calcium 8.2 mg/dL (8.3-10.6); Calcium (Corrected) 8.8 mg/dL (8.5-10.1); Carbon Dioxide 24.5 mMol/L (20.0-31.0); Chloride 101 mMol/L (98-107); Creatinine (Component) 1.8 mg/dL (0.6-1.3); Estimated Creatinine Clearance 62.6 mL/min (>60); Glucose 221 mg/dL (74-106); Magnesium 1.9 mg/dL (1.6-2.6); Osmolality,Calculated 282 (275-295); Phosphorous 3.8 mg/dL (2.4-5.1); Potassium 4.3 mMol/L (3.4-5.1); Sodium 136 mMol/L (136-145); Total Protein 7.3 gm/dL (5.7-8.2); eGFR 43 See Note
[2024-12-21] MEDS: INSULIN LISPRO (AdmeLOG) 1 UNIT/0.01 ML UNIT 7 UNIT SC (07:15)
[2024-12-21] MEDS: INSULIN LISPRO (AdmeLOG) 1 UNIT/0.01 ML UNIT SC (07:16)
[2024-12-21 08:00] VITALS: BP 119/97; PULSE 120; RESP 16; TEMP 36.1; O2SAT 98
[2024-12-21 08:12] VITALS: BP 119/79; BP 119/97; PULSE 123; PULSE 125
[2024-12-21] MEDS: PANTOPRAZOLE 40 MG TABLET PO (08:12)
[2024-12-21] MEDS: LOSARTAN POTASSIUM 25 MG TABLET 100 MG PO (08:12)
[2024-12-21] MEDS: carVEDILOL 12.5 MG TABLET PO (08:12)
[2024-12-21] MEDS: APIXABAN 2.5 MG TABLET 5 MG PO (08:12)
[2024-12-21] MEDS: DAPAGLIFLOZIN PROPANEDIOL 5 MG TABLET 10 MG PO (08:13)
[2024-12-21] MEDS: Magnesium Sulfate 1 gm Ivpb 1 GM/100 ML BAG IV (08:19)
[2024-12-21 08:25] VITALS: BP 119/97; PULSE 125
[2024-12-21] MEDS: BUMETANIDE INJ 0.25 MG/ML VIAL 4 ML 2 MG IVP (08:25)
--- NOTE | 2024-12-21 09:12 | PC.SS ---
Rounding: Pt was identified as a DC for today back home. No PT needs as per PT eval.
[2024-12-21 10:50] VITALS: BP 138/99; PULSE 120; RESP 20; TEMP 36.1; O2SAT 95
--- NOTE | 2024-12-21 14:36 | PD.RESDS ---
Planned Discharge Date 12/21/24 DS: Providers Provider Date of admission: 12/18/24 05:58 Primary care physician: Jad Lipscomb MD Admitting Provider: Maite Garrido MD Attending Provider on Admission: Cheikh Silverio DO Consults: 12/18/24 04:25 Consult to Cardiology Stat Comment: Consulting Provider: Tomasz Michael 12/18/24 06:10 Referral Physical Therapy Routine Comment: Physician Instructions: Referral Wound Care Routine Comment: Attending Provider on DC: Cheikh Silverio DO Discharging Provider: Derrick Hung MD DS: Diagnosis Problem List Completed Was Problem List Reviewed/Reconciled?: Yes Hospital Course Hospital Course Hospital course: 59 years old male with past medical history of COPD, hypertension, HFrEF, status post defibrillator, diabetes, 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 Patient was diuresed with IV Bumex, had net -7.5 L of fluid during length of stay. Patient showed significant improvement and physical exam. Patient medically stable and cleared for discharge. Discharge plan: Please continue all medication as prescribed Follow-up with your supervisor safety deposit Dr. Calle in [place] within 1 week Please follow-up with Primary Care Provider for diabetic control Please track daily weight and report any increase greater than 2 pounds within 1 to 2 days, please limit sodium intake to 2 g/day, please limit total fluid intake to 2 L/day. -Please follow up with your primary care provider within one week of discharge -If your symptoms worsen,please seek immediate medical attention and return to your nearest emergency room -If you do not have a primary care provider, you may follow up at the [facility] at [address], [place] [address], Diagnoses: #Acute heart failure exacerbation #History of HFrEF s/p ICD #Medical noncompliance #NSTEMI type II, demand ischemia #LUDY on CKD-resolved #CKD, diabetic nephropathy. 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 Mariscal PGY?[address] Silverio. Derrick Hung MD PGY?1 Senior resident attestation: Patient evaluated and examined at the bedside, plan of care discussed with rest of the team including my attending physician, except as noted. [place] PGY2 Status at Discharge Overall status at discharge: patient is progressing back to baseline Time Spent with Patient Time attestation: Total time spent providing and/or coordinating discharge services: Time spent: Greater than 30 minutes Exam Vital Signs Temp Pulse Resp BP Pulse Ox O2 Del Method O2 Flow Rate 96.9 F 120 H 20 138/99 H 95 Room Air 2 12/21/24 10:50 12/21/24 10:50 12/21/24 10:50 12/21/24 10:50 12/21/24 10:50 12/21/24 10:50 12/21/24 00:00 Narrative Exam PE: Gen: Well-developed and well-nourished. Obese. HEENT: NCAT, PERRLA, EOMI, MMM, anicteric conjunctivae. CVS: normal S1 and S2. No M/R/G. Irregular regular rate and tachycardia. Resp: CTA B/L. No rhonchi, rales, crackles or wheezing. Diminished lung sounds due to poor body habitus. Abd: soft, non-tender, non-distended. MSK: Good ROM in BUE & BLE. No rash. 2+ pitting edema bilateral lower extremities. Neuro: CN II-XII grossly intact. Strength 5/5 in BUE & BLE. Alert and oriented x3. Psych: appropriate mood and affect. Discharge Plan Plan Patient Disposition: HOME (Self Care) Care Plan Goals: Please continue all medication as prescribed Follow-up with your supervisor safety deposit Dr. Calle in [place] within 1 week Please follow-up with Primary Care Provider for diabetic control Please track daily weight and report any increase greater than 2 pounds within 1 to 2 days, please limit sodium intake to 2 g/day, please limit total fluid intake to 2 L/day. -Please follow up with your primary care provider within one week of discharge -If your symptoms worsen,please seek immediate medical attention and return to your nearest emergency room -If you do not have a primary care provider, you may follow up at the [facility] at [facility] [address], [place] [address], Prescriptions/Referrals Prescriptions/Med Rec: Continued cyclobenzaprine 10 mg Tablet 10 mg PO HS PRN (Reason: Muscle Spasm) atorvastatin 20 mg Tablet 20 mg PO QPM carvedilol 12.5 mg Tablet 12.5 mg PO BID Rx Instructions: must administer with a meal/food aspirin 81 mg Tablet 81 mg PO QDAY losartan 100 mg Tablet 100 mg PO QDAY insulin lispro [Humalog KwikPen Insulin] 100 unit/mL Insulin Pen 5 unit SUBCUT TID dapagliflozin propanediol [Farxiga] 10 mg Tablet 10 mg PO QDAY potassium chloride 20 mEq Tablet Extended Release 20 meq PO QDAY insulin degludec [Tresiba FlexTouch U-100] 100 unit/mL (3 mL) insulin pen 25 unit SUBCUT DAILY Qty: 15 0RF (DME) FreeStyle Connor 3 Plus Sensor Device See Rx Instructions .Route Qty: 2 2RF Rx Instructions: As directed (DME) FreeStyle Connor 3 Flora Misc See Rx Instructions .Route Qty: 1 0RF Rx Instructions: As directed bumetanide 1 mg tablet 1 mg PO QDAY Qty: 30 2RF Eliquis 5 mg tablet 5 mg PO BID Patient Comments: TAKE 1 TABLET BY MOUTH TWICE A DAY acetaminophen 500 mg tablet 500 mg PO Q6H PRN (Reason: pain) Patient Comments: TAKE 1 TABLET BY MOUTH EVERY 6 HOURS NEEDED FOR 15 DAYS Ozempic 0.25 mg or 0.5 mg(2 mg/1.5 mL) pen injector 0.5 mg subcut QWEEK Discontinued doxycycline hyclate 100 mg capsule 100 mg PO BID Qty: 10 0RF furosemide 40 mg tablet 40 mg PO QDAY Patient Comments: TAKE 1 TABLET BY MOUTH EVERY DAY insulin degludec [Tresiba FlexTouch U-200] 200 unit/mL (3 mL) insulin pen 60 unit SUBCUT QDAY Patient Comments: INJECT 40 UNITS SUBCUTANEOUSLY EVERY DAY cephalexin 500 mg capsule 500 mg PO TID Referrals: Jad Lipscomb MD [Primary Care Provider] - Patient/Caregiver Discharge Instructions Education Materials: Low-Salt Choices, Heart Failure: Tracking Your Weight, Heart Failure Dc Print Language: Frisian Stand Alone Forms: Cristina Award Info., Patient Portal Info Letter Discharge Order Discharge Orders: Discharge (Routine); Ordered 12/21/24 Ordered By: Sherri Nieto Quality Discharge Quality Measures VTE prophylaxis Attestestation Attestation I have discussed and was present for the essential components of the discharge history, physical examination, diagnosis, and discharge treatment plan with the resident. I agree with the patient's discharge care as documented by the resident and amended herein by me. Andi Silverio, . The patient understood all discharge instructions, all questions were answered satisfactorily. The patient was instructed to return to the Emergency Department is symptoms worsened or persisted. Patient was stable, afebrile, tolerating p.o. intake and ambulatory at time of discharge home. We did stress the importance of medication compliance which the patient has not been doing. Patient will need to follow-up with cardiology within 1 week of discharge as well as his primary care physician. It was also explained to the patient that it is important that he monitors his fluid intake, limiting his fluid to 1.8 to 2 L/day. He was also explained the patient that he will need to weigh himself daily, using the same scale, same close at the same time every day. If he notices a 2 to 3 pound increase in his weight in a day to take an extra dose of his Bumex however no more than 1 extra dose. Patient understood, all questions were answered satisfactorily. The patient will be discharged home. Although this document has been carefully reviewed, there may still be some phonetic and other typographical errors. These errors are purely grammatical due to imperfections in the software program and should not be construed in any way to compromise the substance of the patient's medical care during this visit.
== END 2024-12-21 11:00 | disposition home or self-care (01) | DRG 194 ==
LOC: SERX 04:31 → SERHOLD 06:48 → S2NX 22:33
PROVIDERS: Physician Assistant; Admitting Provider Student in an Organized Health Care Education/Training Program; Emergency Provider Emergency Medicine; PCP Family Medicine; Visit Provider Student in an Organized Health Care Education/Training Program
DX: I13.0 Hypertensive heart and chronic kidney disease with heart failure and stage 1 through stage 4 chronic kidney disease, or unspecified chronic kidney disease (principal); I50.23 Acute on chronic systolic (congestive) heart failure; E11.22 Type 2 diabetes mellitus with diabetic chronic kidney disease; N18.9 Chronic kidney disease, unspecified; N17.9 Acute kidney failure, unspecified; I69.354 Hemiplegia and hemiparesis following cerebral infarction affecting left non-dominant side; E78.5 Hyperlipidemia, unspecified; J44.9 Chronic obstructive pulmonary disease, unspecified; E11.42 Type 2 diabetes mellitus with diabetic polyneuropathy; F17.210 Nicotine dependence, cigarettes, uncomplicated; Z90.49 Acquired absence of other specified parts of digestive tract; Z91.199 Patient's noncompliance with other medical treatment and regimen due to unspecified reason; I21.A1 Myocardial infarction type 2; I42.0 Dilated cardiomyopathy
CPT/HCPCS: 36415; 71045; 80053; 80061; 83735; 83880; 84100; 84484; 85025; 93005; 93306; 96372; 96374; 96375; 96376; 97162; 99291; J0360; J1815; J2270; J3475; J3490; J8499; A9270

== ENCOUNTER 2025-01-04 23:53 | Inpatient (IN) | payer MEDICAID, SELFPAY ==
[2025-01-04 23:58] VITALS: BP 142/108; PULSE 113; RESP 19; O2SAT 97
[2025-01-04 23:59] VITALS: PULSE 96; RESP 16; O2SAT 96; BMI 36.7
[2025-01-05] VITALS (27 sets, daily range): BP systolic 109–160; BP diastolic 63–126; PULSE 82–111; RESP 13–97; TEMP 35.9–36.9; O2SAT 94–99; BMI 37.4
--- NOTE | 2025-01-05 00:20 | XR_ITS ---
Examination: AP chest single view Technique one AP portable upright chest single view Exam date and time: January 05, 2025 at 0112 hrs. Compared to December 18, 2024 Indications: Diagnosis defibrillator pacemaker Avulsion today, coughing Findings: Bibasilar pneumonia Mild enlargement cardiac contour The ventricular lead is not included on this film Moderate vascular congestion Impression: Bibasilar pneumonia Moderate vascular congestion
--- NOTE | 2025-01-05 00:35 | PD.EDCHEST ---
ED Chest Pain RME/HPI General Chief Complaint: Chest Pain Stated Complaint: PACE MAKER/DEFIBRILLATOR SHOCKING Time Seen by Provider: 01/05/25 00:04 Arrival date/time: 01/04/25 23:53 RME / HPI RME / HPI narrative: Dr. Magaña?s Main ED Evaluation: 59yo male with a history of CHF, COPD, HTN, CVA, defibrillator BIBA from home presents to the ED after being shocked by his defibrillator. Patient states he was sitting in his recliner watching TV when his head started spinning. He states the next thing he remembers, he was woken up by his mom, who told him his defibrillator shocked him twice. Patient denies having any chest pain or shortness of breath before or after the event. He denies any cough, N/V or any other associated symptoms. Patient notes he is currently on antibiotics for cellulitis. No known allergies. Related Data Home Medications ?Medication ?Instructions ?Recorded ?Confirmed aspirin 81 mg tablet 81 mg PO QDAY 10/09/24 10/09/24 atorvastatin 20 mg tablet 20 mg PO QPM 10/09/24 12/18/24 carvedilol 12.5 mg tablet 12.5 mg PO BID 10/09/24 12/18/24 cyclobenzaprine 10 mg tablet 10 mg PO HS PRN Muscle Spasm 10/09/24 12/18/24 dapagliflozin propanediol 10 mg 10 mg PO QDAY 10/09/24 12/18/24 tablet (Farxiga) insulin lispro 100 unit/mL 5 unit subcut TID 10/09/24 12/18/24 subcutaneous pen (Humalog KwikPen (U-100) Insulin) losartan 100 mg tablet 100 mg PO QDAY 10/09/24 12/18/24 potassium chloride 20 mEq 20 meq PO QDAY 10/09/24 10/09/24 tablet,extended release acetaminophen 500 mg tablet 500 mg PO Q6H PRN pain 12/18/24 12/18/24 apixaban 5 mg tablet (Eliquis) 5 mg PO BID 12/18/24 12/18/24 semaglutide 0.25 mg or 0.5 mg (2 0.5 mg subcut QWEEK 12/18/24 12/18/24 mg/1.5 mL) subcutaneous pen injector (Ozempic) Previous Rx's ?Medication ?Instructions ?Recorded blood-glucose meter,continuous #1 ea 10/13/24 (FreeStyle Connor 3 [place]) blood-glucose sensor (FreeStyle #2 ea 10/13/24 Connor 3 Plus Sensor device) bumetanide 1 mg tablet 1 mg PO QDAY #30 tabs 10/13/24 insulin degludec 100 unit/mL (3 25 unit (0.25 mL) subcut DAILY #15 10/13/24 mL) subcutaneous pen (Tresiba mL FlexTouch U-100 insulin) Allergies Allergy/AdvReac Type Severity Reaction Status Date / Time No Known Allergies Allergy Unknown Verified 01/04/25 23:57 Review of Systems Review of Systems Systems Reviewed: All systems reviewed, normal except as documented Past Medical History Past Medical History NEUROLOGIC: Positive Cerebrovascular Accident CARDIAC: Positive Cardiac Disorders, Myocardial Infarction, Hypercholesterolemia, Congestive Heart Failure, Cellulitis and Hypertension RESPIRATORY: Positive Chronic Obstructive Pulmonary Disease (COPD); Negative Asthma GENITOURINARY: Positive Genitourinary Disorders; Negative Renal Disease MUSCULOSKELETAL: Positive Arthritis ENDOCRINE: Positive Diabetes Mellitus Type 2; Negative Diabetes Mellitus Type 1 HEMATOLOGIC: Negative Sickle Cell Disease PSYCHO/SOCIAL: Positive Recreational Drug Use OTHER HISTORY: Positive Blood Transfusions Surgical History SURGICAL: Positive Cardiac Surgery and Pacemaker Social History SMOKING STATUS: Current some day smoker ED Exam Narrative Physical exam: GENERAL APPEARANCE: alert and oriented x 4, well-developed, well-nourished, no acute distress VITALS: All vitals were reviewed and the pulse ox is 96% on room air, which is normal according to my interpretation. HEENT: Normocephalic, atraumatic; pupils equal, round, reactive to light; EOMI; mucous membranes pink, moist; oropharynx clear NECK: Supple LUNGS: CTABL; no wheezes, no rales, no rhonchi HEART: Tachycardic, regular rhythm; normal S1, S2; no murmurs ABDOMEN: non distended; normal BS; soft, no tenderness, no guarding, no rebound; no masses, no organomegaly, no hernia BACK: no CVA tenderness EXTREMITIES: atraumatic; no edema NEUROLOGIC: awake; alert and oriented x4; cranial nerves II-XII grossly intact; no focal sensory or motor deficits PSYCHIATRIC: appropriate mood and affect SKIN: warm, dry, normal color; no rashes Course Course Course Narrative: CXR is ordered for determining the etiology of chest pain. Quality Measures none Orders Category Date Time Status Templer Head STAT Care 01/05/25 00:20 Active Continuous Pulse Oximetry ONCE Care 01/05/25 00:20 Completed EKG (ED ONLY) *Do not use* NOW Care 01/04/25 23:58 Completed EKG (ED ONLY) *Do not use* NOW Care 01/05/25 01:30 Completed EKG (ED ONLY) *Do not use* NOW Care 01/05/25 02:02 Completed Insert IV STAT Care 01/05/25 00:20 Active EKG (ED Only) Stat Exams 01/04/25 23:58 Ordered EKG (ED Only) Stat Exams 01/05/25 01:30 Ordered EKG (ED Only) Stat Exams 01/05/25 02:02 Ordered XR chest 1V portable Stat Exams 01/05/25 00:20 Taken B-Type Natriuretic Peptide Stat Lab 01/05/25 00:28 Completed CBC Stat Lab 01/05/25 00:28 Completed Comprehensive Metabolic Panel Stat Lab 01/05/25 00:28 Completed Magnesium Stat Lab 01/05/25 00:28 Completed Partial Thromboplastin Time Stat Lab 01/05/25 00:28 Completed Prothrombin Time with INR Stat Lab 01/05/25 00:28 Completed Troponin I Stat Lab 01/05/25 00:28 Completed Vital Signs Vital signs: Vital Signs Pulse Rate 113 H 01/04/25 23:58 Respiratory Rate 19 01/04/25 23:58 Blood Pressure 142/108 H 01/04/25 23:58 Pulse Oximetry (%) 97 01/04/25 23:58 Oxygen Delivery Method Room Air 01/04/25 23:58 Chest Pain MDM Narrative MDM Narrative:: Scribe Attestation: 01/05/25 Nicole Braun am scribing for and in the presence of Dr. Magaña. 0128: Upon my review of the patient's interrogated defibrillator report, the patient received 1 shock due to having an episode of Vfib. 0156: Discussed case with the resident physician, attending Dr. Castellon from Hospitalist service regarding admission. Discussed patients ED course, exam findings, labs, and radiology results. The Hospitalist agrees to accept the patient for admission. Patient data External records reviewed:: [facility] previous records (Per chart review, patient was admitted here on 12/18/24 for CHF exacerbation.) Clinical information provided by:: patient Social determinants that could affect healthcare access:: none Patient has the following chronic illnesses:: CHF, COPD, HTN, CVA, defibrillator How is presenting disease/condition affected by chronic disease/condition?: caused by Evaluation data The following diagnostics were reviewed and interpreted by me:: lab results, radiology exam(s) and EKG tracing(s) Lab and/or radiology exams considered but not ordered:: none Interpretation Summary: CBC is normal, Sodium is 132, Glucose is 236, Magnesium is normal, Troponin is elevated at 0.071, BNP is elevated at 909, according to my interpretation. CXR is slightly rotated, but shows a dual chamber pacemaker/AICD in place and mild pulmonary edema, according to my interpretation. EKG done at 2359, paced rhythm, rate of 112, otherwise, is not interpretable, according to my interpretation. Repeat EKG done at 0208, paced rhythm, rate of 107, no STEMI or scarbosa's criteria, according to my interpretation. Medications / Prescriptions Medications or Prescriptions considered but not ordered:: none Medication administrations:: see above, if any Consultations Consultation(s) initiated? (list below): Yes Consultation #1 (Physician, Specialty, Details): See MDM. Diagnosis Chest Pain Differential Diagnosis: other (vFib, vTach, STEMI) Most likely diagnosis given after review of the tests above:: see clinical impression below Admission Indicated Admission indicated?: indicated Admission Request Was there a request for admission?: Yes Admission Attestation Admission request attestation: Discussed case with [] from Hospitalist service regarding admission. Discussed patients ED course, exam findings, labs, and radiology results. The Hospitalist [agrees,declines] to accept the patient for admission. Disposition Plan Disposition Plan: Admit Critical Care Time Critical Care Time Critical Care Time: Yes Total Critical Care Time (min.): 40 Attestation: The high probability of sudden, clinically significant deterioration in the patient?s condition required the highest level of my preparedness to intervene urgently. The services I provided to this patient were to treat and/or prevent clinically significant deterioration. Services included the following: chart data review, reviewing nursing notes and/or old charts, documentation time, career development consultant collaboration regarding findings and treatment options, medication orders and management, direct patient care, vital sign assessments and ordering, interpreting and reviewing diagnostic studies and lab tests. Aggregate critical care time includes only time during which I was engaged in work directly related to the patient?s care, as described above, whether at bedside or elsewhere in the Emergency Department. It did not include time spent performing other reported procedures or the services of residents, students, nurses or physician assistants. Discharge Plan Plan Patient Disposition: Admit Acute Care w/in Hospital Prescriptions/Referrals Prescriptions/Med Rec: No Action cyclobenzaprine 10 mg Tablet 10 mg PO HS PRN (Reason: Muscle Spasm) atorvastatin 20 mg Tablet 20 mg PO QPM carvedilol 12.5 mg Tablet 12.5 mg PO BID Rx Instructions: must administer with a meal/food aspirin 81 mg Tablet 81 mg PO QDAY losartan 100 mg Tablet 100 mg PO QDAY insulin lispro [Humalog KwikPen Insulin] 100 unit/mL Insulin Pen 5 unit SUBCUT TID dapagliflozin propanediol [Farxiga] 10 mg Tablet 10 mg PO QDAY potassium chloride 20 mEq Tablet Extended Release 20 meq PO QDAY insulin degludec [Tresiba FlexTouch U-100] 100 unit/mL (3 mL) insulin pen 25 unit SUBCUT DAILY Qty: 15 0RF (DME) FreeStyle Connor 3 Plus Sensor Device See Rx Instructions .Route Qty: 2 2RF Rx Instructions: As directed (DME) FreeStyle Connor 3 [place] Misc See Rx Instructions .Route Qty: 1 0RF Rx Instructions: As directed bumetanide 1 mg tablet 1 mg PO QDAY Qty: 30 2RF Eliquis 5 mg tablet 5 mg PO BID Patient Comments: TAKE 1 TABLET BY MOUTH TWICE A DAY acetaminophen 500 mg tablet 500 mg PO Q6H PRN (Reason: pain) Patient Comments: TAKE 1 TABLET BY MOUTH EVERY 6 HOURS NEEDED FOR 15 DAYS Ozempic 0.25 mg or 0.5 mg(2 mg/1.5 mL) pen injector 0.5 mg subcut QWEEK Referrals: Jad Lipscomb MD [Primary Care Provider] - In 1 week Problem List Clinical Impression: Ventricular fibrillation Patient/Caregiver Discharge Instructions Print Language: Citizen Of [place] Stand Alone Forms: Cristina Award Info., Patient Portal Info Letter
[2025-01-05 00:43] LABS: Basophils % (Auto) 1 % (0-2.5); Eosinophils # (Auto) 0.1 Thou/mm3 (0.0-0.5); Eosinophils % (Auto) 2 % (0-10); Hematocrit 46.5 % (41.0-53.0); Hemoglobin 15.2 g/dL (13.5-16.0); Immature Granulocytes % (Auto) 0 % (0-0); Immature Granulocytes Auto 0.03 Thou/mm3 (0.00-0.00); Lymphocytes # (Auto) 1.9 Thou/mm3 (1.0-4.8); Lymphocytes % (Auto) 26 % (10-50); Mean Corpuscular HGB Conc 32.7 g/dl (31.0-37.0); Mean Corpuscular Hemoglobin 29.8 pg (25.0-35.0); Mean Corpuscular Volume 91 fL (80-100); Monocytes # (Auto) 0.6 Thou/mm3 (0.0-0.8); Monocytes % (Auto) 8 % (0-12); Neutrophils # (Auto) 4.7 Thou/mm3 (1.8-7.7); Neutrophils % (Auto) 63 % (37-80); Nucleated Red Blood Cell # 0.03 Thou/mm3 (0.00-0.00); Nucleated Red Blood Cell % 0 /100 WBC (0); Platelet Count 208 Thou/mm3 (140-440); RDW Standard Deviation 59.9 fL (35.1-43.9); White Blood Count 7.3 Thou/mm3 (3.8-10.6)
[2025-01-05 01:21] LABS: B-Type Natriuretic Peptide 909 pg/mL (0-100)
[2025-01-05 01:27] LABS: Alanine Aminotransferase 16 U/L (10-49); Albumin, Serum 3.8 gm/dL (3.5-5.0); Albumin/Globulin Ratio 0.9 (1.2-2.2); Alkaline Phosphatase 296 U/L (46-116); Anion Gap 9 (7-16); Aspartate Amino Transferase 26 U/L (0-34); BUN/Creatinine Ratio 17 Ratio (12-20); Bilirubin,Total 0.8 mg/dL (0.3-1.2); Blood Urea Nitrogen 37 mg/dL (9-23); Calcium 9.6 mg/dL (8.3-10.6); Calcium (Corrected) 9.8 mg/dL (8.5-10.1); Carbon Dioxide 26.8 mMol/L (20.0-31.0); Chloride 96 mMol/L (98-107); Creatinine (Component) 2.2 mg/dL (0.6-1.3); Estimated Creatinine Clearance 49.6 mL/min (>60); Globulin 4.2 gm/dL (2.3-3.5); Glucose 236 mg/dL (74-106); Magnesium 2.4 mg/dL (1.6-2.6); Osmolality,Calculated 281 (275-295); Potassium 4.1 mMol/L (3.4-5.1); Sodium 132 mMol/L (136-145); eGFR 34 See Note
[2025-01-05 01:29] LABS: Troponin I 0.071 ng/mL (0.0-0.045)
--- NOTE | 2025-01-05 01:30 | EKG_ITS ---
[facility] Test Date: 2025-01-05 Pat Name: NOELLE BRITO Department: Room: - Gender: Male Tuber Helper: : 1965 Requested By: Thomas Foreman Order Number: [id number] Reading MD: Thomas Foreman Measurements Intervals Odd Rate: 107 P: 61 AZ: 272 QRS: -80 QRSD: 180 T: 54 QT: 405 QTc: 541 Interpretive Statements ELECTRONIC VENTRICULAR PACEMAKER ABNORMAL RHYTHM ECG Compared to ECG 12/20/2024 02:51:45 No significant changes /store/S0/[id number].pdf
[2025-01-05 01:33] LABS: INR 1.3 (0.9-1.3); Partial Thromboplastin Time 29.3 Seconds (22.0-36.0); Prothrombin Time 13.9 Seconds (9.0-12.2)
[2025-01-05] MEDS: LABETALOL INJ 5 MG/ML VIAL 20 ML 20 MG IVP (03:23)
--- NOTE | 2025-01-05 03:23 | PD.RESHP ---
Documentation for date of: 01/05/25 [facility] History of Present Illness Chief complaint: episode of dizziness, loss of conscioussness History of present illness: The patient is a 59-year-old male with a previous medical history of HFrEF ejection fraction 20 to 25% on 12/18/24, s/p MEN'S BASKETBALL COACH-D placement, nonischemic cardiomyopathy, methamphetamine abuse, hypertension, type 2 diabetes, peripheral neuropathy, CVA who came in due to the episode of dizziness and loss of consciousness. He reports that he was watching television at around 11:30 PM, started to feel dizzy, lost consciousness. His mother witnessed him losing consciousness for 10 to 12 seconds and then saw him jerking and becoming awake. He denies falling, he was lying in the recliner at that time. He reports he had a episode where he fell and scraped his right knee, reports that he felt dizzy after the fall. Of note, he was recently discharged from [facility] due to CHF exacerbation and lower extremity cellulitis. He reports improving of his swelling and shortness of breath. After that admission he followed up with his radiation therapy technician Dr. Calle. He was taking his prescribed medication, the only thing his mother held his evening dose of carvedilol due to SBP 130. Mother was contacted on the phone, was educated on the blood pressure management. ED course: Blood pressure 142/138, heart rate 113, afebrile, saturating well on room air. Labs were remarkable for creatinine 2.2, BUN 37, EGFR 34, alkaline phosphatase 296, troponin I 0.071, BNP 909. Chest x-ray showed improvement of vascular congestion compared to the CXR 12/18. MEN'S BASKETBALL COACH-D interrogation showed ventricular tachycardia episode longer than 30 seconds treated with shock, ventricular pacing less than 90%. Social history: Lives with his mother, smokes a pack of cigarettes a day, reports stopped drinking alcohol at 25, reports methamphetamine use, last dose was a week and a half ago. Home medications: (reviewed at the bedside) Losartan 100 daily, carvedilol 12.5 twice daily, bumetanide 1 mg daily, metolazone 2.5 mg daily cyclobenzaprine 10 daily, atorvastatin 20 mg daily, cefuroxime 500 mg, aspirin 81 mg, Eliquis 5 mg twice daily, Farxiga 10 mg daily, potassium 20 mEq daily. Review of Systems Review of Systems Systems Reviewed: All systems reviewed, normal except as documented Past Medical History Past Medical History NEUROLOGIC: Positive Cerebrovascular Accident CARDIAC: Positive Cardiac Disorders, Hypercholesterolemia, Congestive Heart Failure, Cellulitis and Hypertension RESPIRATORY: Positive Chronic Obstructive Pulmonary Disease (COPD); Negative Asthma GENITOURINARY: Positive Genitourinary Disorders; Negative Renal Disease MUSCULOSKELETAL: Positive Arthritis ENDOCRINE: Positive Diabetes Mellitus Type 2 PSYCHO/SOCIAL: Positive Recreational Drug Use OTHER HISTORY: Positive Blood Transfusions Surgical History SURGICAL: Positive Cardiac Surgery and Pacemaker Social History SMOKING STATUS: Current some day smoker Exam Vital Signs Temp Pulse Resp BP Pulse Ox O2 Del Method 98.5 F 107 H 17 154/126 H 98 Room Air 01/05/25 00:04 01/05/25 02:00 01/05/25 02:00 01/05/25 02:00 01/05/25 02:00 01/05/25 02:00 Narrative Exam Physical Exam General: Awake and in no acute distress. Conversational and non-toxic appearing. HEENT: Normocephalic, atraumatic, mucous membranes moist. Heart: Regular rate and rhythm, no murmurs. Lungs: Clear to auscultation with no wheezing or crackles. Abdomen: Soft, nondistended, nontender, positive bowel sounds. ?No guarding or rebound tenderness. Neurologic: Alert and oriented x3, no gross neurological deficit, and patient able to move all 4 extremities. Extremities: 1+ tibial edema. Skin: Residual bilateral tibial erythema, resolving. Extremities excoriations. Results: Labs 01/05/25 00:28 01/05/25 00:28 Labs: Short CBC 01/05/25 Range/Units 00:28 WBC 7.3 (3.8-10.6) Thou/mm3 Hgb 15.2 (13.5-16.0) g/dL Hct 46.5 (41.0-53.0) % Plt Count 208 (140-440) Thou/mm3 BMP 01/05/25 00:28 Sodium 132 L Potassium 4.1 Chloride 96 L Carbon Dioxide 26.8 BUN 37 H Creatinine 2.2 H Glucose 236 H Calcium 9.6 Cardiac Enzymes 01/05/25 Range/Units 00:28 Troponin I 0.071 H* (0.0-0.045) ng/mL Liver Function 01/05/25 Range/Units 00:28 Total Bilirubin 0.8 (0.3-1.2) mg/dL AST 26 (0-34) U/L ALT 16 (10-49) U/L Alkaline Phosphatase 296 H (46-116) U/L Albumin 3.8 (3.5-5.0) gm/dL Quality Measures Quality Measures VTE prophylaxis Medications Home Medications and Allergies Home Medications ?Medication ?Instructions ?Recorded ?Confirmed ?Type aspirin 81 mg tablet 81 mg PO QDAY 10/09/24 10/09/24 History atorvastatin 20 mg tablet 20 mg PO QPM 10/09/24 12/18/24 History carvedilol 12.5 mg tablet 12.5 mg PO BID 10/09/24 12/18/24 History cyclobenzaprine 10 mg tablet 10 mg PO HS PRN Muscle Spasm 10/09/24 12/18/24 History dapagliflozin propanediol 10 mg 10 mg PO QDAY 10/09/24 12/18/24 History tablet (Farxiga) insulin lispro 100 unit/mL 5 unit subcut TID 10/09/24 12/18/24 History subcutaneous pen (Humalog KwikPen (U-100) Insulin) losartan 100 mg tablet 100 mg PO QDAY 10/09/24 12/18/24 History potassium chloride 20 mEq 20 meq PO QDAY 10/09/24 10/09/24 History tablet,extended release acetaminophen 500 mg tablet 500 mg PO Q6H PRN pain 12/18/24 12/18/24 History apixaban 5 mg tablet (Eliquis) 5 mg PO BID 12/18/24 12/18/24 History semaglutide 0.25 mg or 0.5 mg (2 0.5 mg subcut QWEEK 12/18/24 12/18/24 History mg/1.5 mL) subcutaneous pen injector (Ozempic) Allergies Allergy/AdvReac Type Severity Reaction Status Date / Time No Known Allergies Allergy Unknown Verified 01/04/25 23:57 Visit Medications Acetaminophen (Acetaminophen 325 Mg Tablet) 650 mg PO Q6H PRN PRN Reason: Fever >100.3 or pain 1-3 Stop: 02/04/25 03:06 Apixaban (Apixaban 2.5 Mg Tablet) 5 mg PO BID [facility] Stop: 02/04/25 08:59 Aspirin (Aspirin Ec 81 Mg Tabec) 81 mg PO QDAY [facility] Stop: 02/04/25 08:59 Atorvastatin Calcium (Atorvastatin Calcium 20 Mg Tablet) 20 mg PO QPM [facility] Stop: 02/04/25 20:59 Bumetanide (Bumetanide 0.5 Mg Tablet) 1 mg PO QDAY [facility] Stop: 02/04/25 08:59 Carvedilol (Carvedilol 12.5 Mg Tablet) 12.5 mg PO BIDWM [facility] Stop: 02/04/25 03:14 Dapagliflozin (Dapagliflozin Propanediol 5 Mg Tablet) 10 mg PO QAM [facility] Stop: 02/04/25 08:59 Dextrose (Dextrose 50%-Water Inj 50 Ml Syringe) 25 ml IV Q15MIN PRN PRN Reason: BG 50-70 responsive npo pt Stop: 02/04/25 03:13 Dextrose (Dextrose 50%-Water Inj 50 Ml Syringe) 50 ml IV Q15MIN PRN PRN Reason: BG <50 OR BG <70 & pt unresponsive Stop: 02/04/25 03:13 Glucagon (Glucagon Inj 1 Mg Vial) 1 mg IM Q15MIN PRN PRN Reason: BG <70, and no IV access Insulin Human Lispro (Insulin Lispro (Admelog) 1 Unit/0.01 Ml Unit) 0 unit SC AC [facility]; Protocol Stop: 02/04/25 07:29 Losartan Potassium (Losartan Potassium 25 Mg Tablet) 100 mg PO QDAY [facility] Stop: 02/04/25 08:59 Magnesium Hydroxide (Milk Of Magnesia Susp 30 Ml Udc) 30 ml PO QDAY PRN; Protocol PRN Reason: CONSTIPATION Stop: 02/04/25 03:06 Sennosides (Senna Tablet) 1 tab PO QDAY PRN; Protocol PRN Reason: constipation Stop: 02/04/25 03:06 Discontinued Medications Carvedilol (Carvedilol 12.5 Mg Tablet) 12.5 mg PO BID [facility] Stop: 02/04/25 08:59 Labetalol HCl (Labetalol Inj 5 Mg/Ml Vial 20 Ml) 20 mg IVP X1 ONE Stop: 01/05/25 02:40 Non-Formulary Medication (Dapagliflozin Propanediol [Farxiga]) 10 mg PO QDAY [facility] Stop: 02/04/25 08:59 Assessment & Plan Plan The patient is a 59-year-old male with a previous medical history of HFrEF ejection fraction 20 to 25% on 12/18/24, s/p MEN'S BASKETBALL COACH-D placement, nonischemic cardiomyopathy, methamphetamine abuse, hypertension, type 2 diabetes, peripheral neuropathy, CVA who came in due to the episode of dizziness and loss of consciousness. Patient is going to be admitted for episode of ventricular tachycardia workup and management. #Episode of ventricular tachycardia #HFrEF, ejection fraction 20-25% 12/18/24 #History of nonischemic cardiomyopathy #History of hypertension #Elevated troponin I Patient has an extensive history of cardiac disease and he had MEN'S BASKETBALL COACH-D placed by his radiation therapy technician, Dr. Calle. Patient had episode of dizziness and subsequent loss of consciousness and was shocked by defibrillator. In the ED he was hemodynamically stable, received IV labetalol once. EKG showed ventricular pacing. Troponin I elevation most likely due to episode of ventricular tachycardia. Patient continues to use methamphetamine. Plan: ? Resumed home medications ? Trend troponins until peak ? Telemetry ? Cardiology consulted ?Home aspirin 81 mg daily, ? Home atorvastatin 20 mg daily ? Home carvedilol 12.5 mg twice daily ? Losartan 100 mg p.o. daily ? Apixaban 5 mg p.o. twice daily - continue home bumex - consider contacting patient radiation therapy technician Dr. Calle - monitor CMP, keep Mg above 2 and K above 4, replete as necessary #History of methamphetamine abuse Patient reports last use was week and a half ago. Plan: ? Urine drug screen ? financial services professional referral #COPD Plan: ? Levalbuterol inhalations as needed #Active smoker Plan: ? Nicotine patch #Type 2 diabetes Last A1c 12/08 12.4% Plan: ? Insulin sliding scale ? Resumed home Farxiga #LUDY on CKD 01/05/25: Creatinine 2.2, on 12/21 creatinine was 1.8 Most likely in the setting of cardiorenal syndrome and diuretic use. Plan: - will hold IV fluids for now due to concern for fluid overload in the setting of heart failure - will continue with home bumex - monitor CMP Health maintenance: FEN: cardiac, renal, carbohydrate consistent DVT prophylaxis: Eliquis 5 mg BID GI prophylaxis: none Dispo: telemetry CODE STATUS: Full code Plan of care discussed with attending Dr. Castellon. Danae Rebollar MD, PGY 1. Attending Provider Attestation/Addendum I have examined the patient, reviewed labs and imaging findings, discussed the case with the resident(s), and reviewed entered orders. I agree with the plan of care as outlined in this note, with these additional summaries/recommendations: Patient is a 59-year-old male with a medical history of HFrEF (EF 25-30%), status post defibrillator, primary hypertension, atrial fibrillation on Eliquis, COPD, history of CVA, neuropathy, arthritis, substance abuse, CKD, and renal agenesis who presents to [facility] emergency department on 01/05/2025 with chief complaint of loss of consciousness and defibrillator shocking. Patient and patient's brother seen at bedside in the emergency room. Currently patient appears comfortable sitting up in bed. His only complaint at this time is chest soreness. Patient reports he was sitting in his recliner watching TV when he became dizzy and lost consciousness. Patient's mom witnessed the episode and reports he received 2 defibrillator shocks. Patient did not hit his head. [employer] interrogation revealed patient went into ventricular fibrillation. Patient will be admitted to telemetry for loss of consciousness secondary to ventricular fibrillation. Keep potassium greater than 4 and magnesium greater than 2. We will touch base with patient's radiation therapy technician Dr. Calle in the a.m. Patient reports he did not take his Coreg this evening which may have contributed. Patient has minimally elevated troponin to 0.071 which is most likely secondary to demand ischemia and continue to trend every 8 hours or until downtrend. Resume home aspirin. Patient has history of A-fib and continue home Eliquis. Continue goal-directed medical therapy for HFrEF. He does not appear to be in CHF exacerbation at this time. Previous echo on 12/18/24 showed EF of 20-25%. Continue Coreg 12.5 mg p.o. twice daily, Bumex, and losartan as patient. Continue atorvastatin for hyperlipidemia. Patient found to have LUDY on CKD. Creatinine on admission 2.2 and baseline appears to be 1.7-1.8. LUDY likely medication induced we will repeat renal panel in AM. Renally dose medications and avoid nephrotoxic agents. Continue cefuroxime for lower extremity cellulitis. Chart review also shows patient is a diabetic. Last A1c on file 12.4%. Does not appear to take any diabetes medicines except Farxiga. Start insulin sliding scale with Accu-Cheks. Target blood sugar of 140-180 while hospitalized. Patient updated on the plan and in agreement. All questions answered to satisfaction. Please see residents note for additional details and management. Dr. Cande MD
[2025-01-05] MEDS: ACETAMINOPHEN 325 MG TABLET 650 MG PO (04:31)
[2025-01-05] MEDS: carVEDILOL 12.5 MG TABLET PO ×3 (04:32→17:35)
[2025-01-05 04:46] LABS: Amphetamine/Methamp Scrn,U Positive (Negative); Barbiturate Screen,Urine Negative (Negative); Benzodiazepines Screen,Urine Negative (Negative); Benzoylecgonine Screen, Ur Negative (Negative); Fentanyl Screen,Urine Negative (Negative); Opiate Screen,Urine Negative (Negative); THC Screen,Urine Negative (Negative)
[2025-01-05] MEDS: NICOTINE PATCH 21 MG/24 HR PATCH.TD24 TOP (05:30)
[2025-01-05] MEDS: INSULIN LISPRO (AdmeLOG) 1 UNIT/0.01 ML UNIT SC ×3 (08:25→17:35)
[2025-01-05] MEDS: LOSARTAN POTASSIUM 25 MG TABLET 100 MG PO (08:26)
[2025-01-05] MEDS: DAPAGLIFLOZIN PROPANEDIOL 5 MG TABLET 10 MG PO (08:28)
[2025-01-05] MEDS: BUMETANIDE 0.5 MG TABLET 1 MG PO (08:29)
[2025-01-05] MEDS: ASPIRIN EC 81 MG TABEC PO (08:30)
[2025-01-05] MEDS: APIXABAN 2.5 MG TABLET 5 MG PO ×2 (08:30→20:16)
[2025-01-05 08:51] LABS: Basophils % (Auto) 1 % (0-2.5); Eosinophils # (Auto) 0.1 Thou/mm3 (0.0-0.5); Eosinophils % (Auto) 1 % (0-10); Hemoglobin 15.3 g/dL (13.5-16.0); Immature Granulocytes % (Auto) 0 % (0-0); Immature Granulocytes Auto 0.01 Thou/mm3 (0.00-0.00); Lymphocytes # (Auto) 1.8 Thou/mm3 (1.0-4.8); Lymphocytes % (Auto) 27 % (10-50); Mean Corpuscular HGB Conc 32.6 g/dl (31.0-37.0); Mean Corpuscular Hemoglobin 29.9 pg (25.0-35.0); Mean Corpuscular Volume 92 fL (80-100); Monocytes # (Auto) 0.5 Thou/mm3 (0.0-0.8); Monocytes % (Auto) 8 % (0-12); Neutrophils # (Auto) 4.2 Thou/mm3 (1.8-7.7); Neutrophils % (Auto) 64 % (37-80); Nucleated Red Blood Cell % 0 /100 WBC (0); Platelet Count 181 Thou/mm3 (140-440); RDW Standard Deviation 60.5 fL (35.1-43.9); Red Blood Count 5.11 Miln/mm3 (4.50-5.90); White Blood Count 6.6 Thou/mm3 (3.8-10.6)
[2025-01-05 09:50] LABS: Alanine Aminotransferase 15 U/L (10-49); Albumin, Serum 3.6 gm/dL (3.5-5.0); Albumin/Globulin Ratio 0.9 (1.2-2.2); Alkaline Phosphatase 297 U/L (46-116); Anion Gap 7 (7-16); Aspartate Amino Transferase 21 U/L (0-34); BUN/Creatinine Ratio 18 Ratio (12-20); Bilirubin,Total 0.7 mg/dL (0.3-1.2); Blood Urea Nitrogen 39 mg/dL (9-23); Calcium 9.4 mg/dL (8.3-10.6); Calcium (Corrected) 9.7 mg/dL (8.5-10.1); Carbon Dioxide 28.5 mMol/L (20.0-31.0); Chloride 100 mMol/L (98-107); Creatinine (Component) 2.2 mg/dL (0.6-1.3); Globulin 4.2 gm/dL (2.3-3.5); Glucose 308 mg/dL (74-106); Magnesium 2.5 mg/dL (1.6-2.6); Osmolality,Calculated 291 (275-295); Potassium 4.3 mMol/L (3.4-5.1); Sodium 135 mMol/L (136-145); Total Protein 7.8 gm/dL (5.7-8.2); eGFR 34 See Note
[2025-01-05 10:00] LABS: Troponin I 0.073 ng/mL (0.0-0.045)
[2025-01-05] MEDS: INSULIN GLARGINE (Lantus) 5 UNIT/0.05 ML (PER 5 UNITS) 10 UNIT SC (10:56)
--- NOTE | 2025-01-05 13:24 | ESCONSULT_ITS ---
<Statement entered by Tomasz Michael MD - 01/07/25 17:55> I personally evaluated the patient had seen the patient in the past admissions known history of nonischemic cardiomyopathy chronic systolic heart failure low ejection fraction status post ICD implantation had ventricular tachycardia and was shocked by the defibrillator appropriate shock due to ventricular tachycardia. Patient is chronic methamphetamine abuser ejection fraction 20% meth cardiomyopathy PACK OUT OPERATOR-D implantation for high risk for sudden cardiac did have 2 shocks delivered appropriately for ventricular tachycardia patient is not on antiarrhythmic drug therapy. Recommending patient to be treated with amiodarone so that he does not get too many shocks long-term prognosis extremely poor short-term prognosis also guarded may going to progressive heart failure ultimately requiring multiple shocks but for now antiarrhythmic drug therapy with amiodarone is recommended to prevent multiple shocks will monitor the patient closely evaluated the patient along with resident physician PGY 3 Dr. Arian Howell agree with the treatment plan recommendation as recommended and documented. No need for further workup since he had echocardiogram several times showing ejection fraction approximately 20% HPI Data of Consult Patient: known to practice within the last 3 years Requesting Physician: Dionisio Collado MD Admitting Provider: Philippe Castellon MD Attending Provider: Dionisio Collado MD Primary Care Provider: Jad Lipscomb MD Consult Narrative Reason for consult: SVT History of present illness: 59-year-old male with a previous medical history of HFrEF ejection fraction 20 to 25% on 12/18/24, s/p PACK OUT OPERATOR-D placement, nonischemic cardiomyopathy, methamphetamine abuse, hypertension, type 2 diabetes, peripheral neuropathy, CVA who came in due to the episode of dizziness and loss of consciousness. He reported that he was watching television at around 11:30 PM, started to feel dizzy, lost consciousness. His mother witnessed him losing consciousness for 10 to 12 seconds and then saw him jerking and becoming awake. He denies falling, he was lying in the recliner at that time. He reports he had a episode where he fell and scraped his right knee, reports that he felt dizzy after the fall. Of note, he was recently discharged from [facility] due to CHF exacerbation and lower extremity cellulitis. He reports improving of his swelling and shortness of breath. After that admission he followed up with his marine equipment research engineer Dr. Calle. ED course: Blood pressure 142/138, heart rate 113, afebrile, saturating well on room air. Labs were remarkable for creatinine 2.2, BUN 37, EGFR 34, alkaline phosphatase 296, troponin I 0.071, BNP 909. Chest x-ray showed improvement of vascular congestion compared to the CXR 12/18. PACK OUT OPERATOR-D interrogation showed ventricular tachycardia episode longer than 30 seconds treated with shock, ventricular pacing less than 90%. Social history: Lives with his mother, smokes a pack of cigarettes a day, reports stopped drinking alcohol at 25, reports methamphetamine use, last dose was a week and a half ago. Home medications: (reviewed at the bedside) Losartan 100 daily, carvedilol 12.5 twice daily, bumetanide 1 mg daily, metolazone 2.5 mg daily cyclobenzaprine 10 daily, atorvastatin 20 mg daily, cefuroxime 500 mg, aspirin 81 mg, Eliquis 5 mg twice daily, Farxiga 10 mg daily, potassium 20 mEq daily. Patient seen and examined today. Feels better. Denies chest pain, shortness of breath, lightheadedness or palpiations. cc:: cc: Dionisio Collado MD Review of Systems Review of Systems Systems Reviewed: All systems reviewed, normal except as documented Exam Vital Signs Temp Pulse Resp BP Pulse Ox O2 Del Method 97.5 F 87 16 137/114 H 97 Room Air 01/05/25 12:00 01/05/25 12:00 01/05/25 12:00 01/05/25 12:00 01/05/25 12:00 01/05/25 12:00 Narrative Exam Physical Exam General: Awake and in no acute distress. Conversational and non-toxic appearing. HEENT: Normocephalic, atraumatic, mucous membranes moist. Heart: Regular rate and rhythm, no murmurs. Lungs: Clear to auscultation with no wheezing or crackles. Abdomen: Soft, nondistended, nontender, positive bowel sounds. ?No guarding or rebound tenderness. Neurologic: Alert and oriented x3, no gross neurological deficit, and patient able to move all 4 extremities. Extremities: 1+ tibial edema. Skin: Residual bilateral tibial erythema, resolving. Extremities excoriations. Results Labs 01/06/25 05:50 01/06/25 05:50 Labs: Short CBC 01/05/25 01/05/25 Range/Units 00:28 08:05 WBC 7.3 6.6 (3.8-10.6) Thou/mm3 Hgb 15.2 15.3 (13.5-16.0) g/dL Hct 46.5 47.0 (41.0-53.0) % Plt Count 208 181 (140-440) Thou/mm3 BMP 01/05/25 01/05/25 00:28 08:05 Sodium 132 L 135 L Potassium 4.1 4.3 Chloride 96 L 100 Carbon Dioxide 26.8 28.5 BUN 37 H 39 H Creatinine 2.2 H 2.2 H Glucose 236 H 308 H D Calcium 9.6 9.4 Cardiac Enzymes 01/05/25 01/05/25 Range/Units 00:28 08:05 Troponin I 0.071 H* 0.073 H* (0.0-0.045) ng/mL Liver Function 01/05/25 01/05/25 Range/Units 00:28 08:05 Total Bilirubin 0.8 0.7 (0.3-1.2) mg/dL AST 26 21 (0-34) U/L ALT 16 15 (10-49) U/L Alkaline Phosphatase 296 H 297 H (46-116) U/L Albumin 3.8 3.6 (3.5-5.0) gm/dL Quality Measures Quality Measures VTE prophylaxis Medications Home Medications and Allergies Home Medications ?Medication ?Instructions ?Recorded ?Confirmed ?Type aspirin 81 mg tablet 81 mg PO QDAY 10/09/2410/09 History atorvastatin 20 mg tablet 20 mg PO QPM 10/09/24 History carvedilol 12.5 mg tablet 12.5 mg PO BID 10/09/2401/08 History cyclobenzaprine 10 mg tablet 10 mg PO HS PRN Muscle Sp asm 10/09/24 12/18/24 History dapagliflozin propanediol 10 mg 10 mg PO QDAY 10/09/24 12/18/24 History tablet (Farxiga) insulin lispro 100 unit/mL 5 unit subcut TID 10/09/24 12/18/24 History subcutaneous pen (Humalog KwikPen (U-100) Insulin) losartan 100 mg tablet 100 mg PO QDAY 10/09/2401/08 History potassium chloride 20 mEq 20 meq PO QDAY 10/09/24 01/2 01/08 History tablet,extended release acetaminophen 500 mg tablet 500 mg PO Q6H PRN pain 01/0812/18/24 History apixaban 5 mg tablet (Eliquis) 5 mg PO BID 12/18/24 History semaglutide 0.25 mg or 0.5 mg (2 0.5 mg subcut QWEEK 0 12/18/24 12/18/24 History mg/1.5 mL) subcutaneous pen injector (Ozempic) Allergies Allergy/AdvReac Type Severity Reaction Status Date / Time No Known Allergies Allergy Unknown Verified 01/04/25 23:57 Visit Medications Acetaminophen (Acetaminophen 325 Mg Tablet) 650 mg PO Q6H PRN PRN Reason: Fever >100.3 or pain 1-3 Stop: 02/04/25 03:06 Last Admin: 01/05/25 04:31 Dose: 650 mg Apixaban (Apixaban 2.5 Mg Tablet) 5 mg PO BID [facility] Stop: 02/04/25 08:59 Last Admin: 01/05/25 08:30 Dose: 5 mg Aspirin (Aspirin Ec 81 Mg Tabec) 81 mg PO QDAY [facility]FIN[facility] Stop: 02/04/25 08:59 Last Admin: 01/05/25 08:30 Dose: 81 mg Atorvastatin Calcium (Atorvastatin Calcium 20 Mg Tablet) 20 mg PO QPM [facility]FIN[facility] Stop: 02/04/25 20:59 Bumetanide (Bumetanide 0.5 Mg Tablet) 1 mg PO QDAY [facility] Stop: 02/04/25 08:59 Last Admin: 01/05/25 08:29 Dose: 1 mg Carvedilol (Carvedilol 12.5 Mg Tablet) 12.5 mg PO BIDWM [facility]FINA Stop: 02/04/25 03:14 Last Admin: 01/05/25 08:29 Dose: 12.5 mg Dapagliflozin (Dapagliflozin Propanediol 5 Mg Tablet) 10 mg PO QAM [facility]FIN[facility] Stop: 02/04/25 08:59 Last Admin: 01/05/25 08:28 Dose: 10 mg Dextrose (Dextrose 50%-Water Inj 50 Ml Syringe) 25 ml IV Q15MIN PRN PRN Reason: BG 50-70 responsive npo pt Stop: 02/04/25 03:13 Dextrose (Dextrose 50%-Water Inj 50 Ml Syringe) 50 ml IV Q15MIN PRN PRN Reason: BG <50 OR BG <70 & pt unresponsive Stop: 02/04/25 03:13 Glucagon (Glucagon Inj 1 Mg Vial) 1 mg IM Q15MIN PRN PRN Reason: BG <70, and no IV access Insulin Glargine (Insulin Glargine (Lantus) 5 Unit/0.05 Ml (Per 5 Units)) 10 unit SC QDAY [facility] Stop: 02/04/25 10:44 Last Admin: 01/05/25 10:56 Dose: 10 unit Insulin Human Lispro (Insulin Lispro (Admelog) 1 Unit/0.01 Ml Unit) 0 unit SC [facility]; Protocol Stop: 02/04/25 07:29 Levalbuterol HCl (Levalbuterol Rt 0.63 Mg/3 Ml Nebu) 0.63 mg INH Q8HR PRN PRN Reason: WHEEZING Stop: 02/04/25 04:39 Losartan Potassium (Losartan Potassium 25 Mg Tablet) 100 mg PO QDAY [facility] Stop: 02/04/25 08:59 Last Admin: 01/05/25 08:26 Dose: 100 mg Magnesium Hydroxide (Milk Of Magnesia Susp 30 Ml Udc) 30 ml PO QDAY PRN; Protocol PRN Reason: CONSTIPATION Stop: 02/04/25 03:06 Sennosides (Senna Tablet) 1 tab PO QDAY PRN; Protocol PRN Reason: constipation Stop: 02/04/25 03:06 Discontinued Medications Carvedilol (Carvedilol 12.5 Mg Tablet) 12.5 mg PO BID [facility] Stop: 02/04/25 08:59 Insulin Human Lispro (Insulin Lispro (Admelog) 1 Unit/0.01 Ml Unit) 0 unit SC [facility]; Protocol Stop: 02/04/25 07:29 Last Admin: 01/05/25 11:36 Dose: 4 unit Labetalol HCl (Labetalol Inj 5 Mg/Ml Vial 20 Ml) 20 mg IVP X1 ONE Stop: 01/05/25 02:40 Last Admin: 01/05/25 03:23 Dose: 20 mg Nicotine (Nicotine Patch 21 Mg/24 Hr Patch.Td24) 21 mg TOP X1 ONE Stop: 01/05/25 04:42 Last Admin: 01/05/25 05:30 Dose: 21 mg Non-Formulary Medication (Dapagliflozin Propanediol [Farxiga]) 10 mg PO QDAY [facility] Stop: 02/04/25 08:59 Sennosides (Senna Tablet) 1 tab PO QDAY PRN; Protocol PRN Reason: constipation Stop: 02/04/25 03:06 Assessment & Plan Plan The patient is a 59-year-old male with a previous medical history of HFrEF ejection fraction 20 to 25% on 12/18/24, s/p PACK OUT OPERATOR-D placement, nonischemic cardiomyopathy, methamphetamine abuse, hypertension, type 2 diabetes, peripheral neuropathy, CVA who came in due to the episode of dizziness and loss of consciousness. Patient is going to be admitted for episode of ventricular tachycardia workup and management. #Syncope, liekly cardiogenic #Ventricular tachycardia #HFrEF, ejection fraction 20-25% 12/18/24 #History of nonischemic cardiomyopathy #History of hypertension #Elevated troponin I likely supply/demand Assessment: Patient has an extensive history of cardiac disease and he had PACK OUT OPERATOR-D placed by his marine equipment research engineer, Dr. Calle. Patient had episode of dizziness and subsequent loss of consciousness and was shocked by defibrillator. In the ED he was hemodynamically stable, received IV labetalol once. EKG showed ventricular pacing. Troponin I elevation most likely due to episode of ventricular tachycardia. Patient continues to use methamphetamine. Likely etiology of the patient's syncope is cardiogenic due to the episode of ventricular tachycardia. And onset of the patient's symptoms which were lightheadedness dizziness followed by the syncope. Due to the patient's low EF of 20% patient is high risk of sudden cardiac . Patient was shocked with his PACK OUT OPERATOR?D. Hospitalist note the PACK OUT OPERATOR-D was interrogated which showed ventricular tachycardia and evidence of 2 shocks. Currently patient is hemodynamically stable no arrhythmias noted. Electrolytes are within normal limits. Patient is on GDMT. Likely cause of the patient's elevated troponin due to supply and demand in the setting of a tachyarrhythmia. To emphasize the patient does suffer from nonischemic dilated cardiomyopathy secondary to methamphetamine use disorder with a EF 20%. Recommendations: ?Home aspirin 81 mg daily, ? Home atorvastatin 20 mg daily ? Home carvedilol 12.5 mg twice daily ? Losartan 100 mg p.o. daily ? Apixaban 5 mg p.o. twice daily - continue home bumex - monitor CMP, keep Mg above 2 and K above 4, replete as necessary - start amiodarone 400mg PO bid loading for 4 days then continue 200mg PO BID #History of methamphetamine abuse #COPD #Active smoker #Type 2 diabetes #LUDY on CKD
--- NOTE | 2025-01-05 13:48 | ESPR_ITS ---
<Statement entered by Artemio Cardenas MD - 01/06/25 08:56> I discussed with and supervised the sports internship physician involved in the care of this patient. Patient assessment and plan was discussed with entire medicine team, including my attending. I agree with the assessment and plan as documented by sports internship doctor. Patient care was discussed with my attending physician Dr. Heaven Cardenas, PGY-2 Documentation for date of: 01/05/25 Subjective Subjective Interval history: Patient seen and examined at bedside. Patient admitted overnight for Exam Vital Signs Temp Pulse Resp BP Pulse Ox O2 Del Method 97.5 F 87 16 137/114 H 97 Room Air 01/05/25 12:00 01/05/25 12:00 01/05/25 12:00 01/05/25 12:00 01/05/25 12:00 01/05/25 12:00 Objective Labs 01/05/25 08:05 01/05/25 08:05 Labs: Laboratory Results - last 24 hr 01/05/25 01/05/25 01/05/25 00:28 04:09 08:05 WBC 7.3 6.6 RBC 5.10 5.11 Hgb 15.2 15.3 Hct 46.5 47.0 MCV 91 92 MCH 29.8 29.9 MCHC 32.7 32.6 RDW Std Deviation 59.9 H 60.5 H Plt Count 208 181 Neut % (Auto) 63 64 Lymph % (Auto) 26 27 [place] % (Auto) 8 8 Eos % (Auto) 2 1 Baso % (Auto) 1 1 Neut # (Auto) 4.7 4.2 Lymph # (Auto) 1.9 1.8 [place] # (Auto) 0.6 0.5 Eos # (Auto) 0.1 0.1 Baso # (Auto) 0.0 0.0 Immature Gran # (Auto) 0.03 H 0.01 H Absolute Nucleated RBC 0.03 H 0.00 Immature Gran % 0 0 Nucleated RBC % 0 0 PT 13.9 H INR 1.3 APTT 29.3 Sodium 132 L 135 L Potassium 4.1 4.3 Chloride 96 L 100 Carbon Dioxide 26.8 28.5 Anion Gap 9 7 BUN 37 H 39 H Creatinine 2.2 H 2.2 H Estim Creat Clear Calc 49.6 L 50.0 L eGFR 34 L 34 L BUN/Creatinine Ratio 17 18 Glucose 236 H 308 H D Calculated Osmolality 281 291 Calcium 9.6 9.4 Corrected Calcium 9.8 9.7 Magnesium 2.4 2.5 Total Bilirubin 0.8 0.7 AST 26 21 ALT 16 15 Alkaline Phosphatase 296 H 297 H Troponin I 0.071 H* 0.073 H* B-Natriuretic Peptide 909 H* Total Protein 8.0 7.8 Albumin 3.8 3.6 Globulin 4.2 H 4.2 H Albumin/Globulin Ratio 0.9 L 0.9 L Urine Opiates Screen Negative Urine Fentanyl Screen Negative Ur Barbiturates Screen Negative U Amphetamin/Meth Scrn Positive A U Benzodiazepines Scrn Negative U Cocaine Metab Screen Negative U Marijuana (THC) Screen Negative 01/05/25 12:34 WBC RBC Hgb Hct MCV MCH MCHC RDW Std Deviation Plt Count Neut % (Auto) Lymph % (Auto) [place] % (Auto) Eos % (Auto) Baso % (Auto) Neut # (Auto) Lymph # (Auto) [place] # (Auto) Eos # (Auto) Baso # (Auto) Immature Gran # (Auto) Absolute Nucleated RBC Immature Gran % Nucleated RBC % PT INR APTT Sodium Potassium Chloride Carbon Dioxide Anion Gap BUN Creatinine Estim Creat Clear Calc eGFR BUN/Creatinine Ratio Glucose Calculated Osmolality Calcium Corrected Calcium Magnesium Total Bilirubin AST ALT Alkaline Phosphatase Troponin I 0.070 H* B-Natriuretic Peptide Total Protein Albumin Globulin Albumin/Globulin Ratio Urine Opiates Screen Urine Fentanyl Screen Ur Barbiturates Screen U Amphetamin/Meth Scrn U Benzodiazepines Scrn U Cocaine Metab Screen U Marijuana (THC) Screen Quality Measures Quality Measures VTE prophylaxis Assessment & Plan Assessment Current Active Medications: Generic Name Dose Route Start Last Admin Trade Name Freq PRN Reason Stop Dose Admin Acetaminophen 650 mg 01/05/25 03:07 01/05/25 04:31 Acetaminophen 325 Mg Tablet PO 02/04/25 03:06 650 mg Q6H PRN Administration Fever >100.3 or pain 1-3 Apixaban 5 mg 01/05/25 09:00 01/05/25 08:30 Apixaban 2.5 Mg Tablet PO 02/04/25 08:59 5 mg BID DELFINA Administration Aspirin 81 mg 01/05/25 09:00 01/05/25 08:30 Aspirin Ec 81 Mg Tabec PO 02/04/25 08:59 81 mg QDAY DELFINA Administration Atorvastatin Calcium 20 mg 01/05/25 21:00 Atorvastatin Calcium 20 Mg Tablet PO 02/04/25 20:59 QPM DELFINA Bumetanide 1 mg 01/05/25 09:00 01/05/25 08:29 Bumetanide 0.5 Mg Tablet PO 02/04/25 08:59 1 mg QDAY DELFINA Administration Carvedilol 12.5 mg 01/05/25 03:15 01/05/25 08:29 Carvedilol 12.5 Mg Tablet PO 02/04/25 03:14 12.5 mg BIDWM DELFINA Administration Dapagliflozin 10 mg 01/05/25 09:00 01/05/25 08:28 Dapagliflozin Propanediol 5 Mg Tablet PO 02/04/25 08:59 10 mg QAM [facility]FINA Administration Dextrose 25 ml 01/05/25 03:14 Dextrose 50%-Water Inj 50 Ml Syringe IV 02/04/25 03:13 Q15MIN PRN BG 50-70 responsive npo pt Dextrose 50 ml 01/05/25 03:14 Dextrose 50%-Water Inj 50 Ml Syringe IV 02/04/25 03:13 Q15MIN PRN BG <50 OR BG <70 & pt unresponsive Glucagon 1 mg 01/05/25 03:14 Glucagon Inj 1 Mg Vial IM Q15MIN PRN BG <70, and no IV access Insulin Glargine 10 unit 01/05/25 10:45 01/05/25 10:56 Insulin Glargine (Lantus) 5 Unit/0.05 Ml (Per 5 Units) SC 02/04/25 10:44 10 unit QDAY [facility]FINA Administration Insulin Human Lispro 0 unit 01/05/25 12:59 Insulin Lispro (Admelog) 1 Unit/0.01 Ml Unit SC 02/04/25 07:29 AC DELFINA Protocol Levalbuterol HCl 0.63 mg 01/05/25 04:40 Levalbuterol Rt 0.63 Mg/3 Ml Nebu INH 02/04/25 04:39 Q8HR PRN WHEEZING Losartan Potassium 100 mg 01/05/25 09:00 01/05/25 08:26 Losartan Potassium 25 Mg Tablet PO 02/04/25 08:59 100 mg QDAY DELFINA Administration Magnesium Hydroxide 30 ml 01/05/25 03:07 Milk Of Magnesia Susp 30 Ml Udc PO 02/04/25 03:06 QDAY PRN CONSTIPATION Protocol Sennosides 1 tab 01/05/25 04:21 Senna Tablet PO 02/04/25 03:06 QDAY PRN constipation Protocol Plan Assessment and plan: Summary: The patient is a 59-year-old male with a previous medical history of HFrEF ejection fraction 20 to 25% on 12/18/24, s/p FACTORY HELPER-D placement, nonischemic cardiomyopathy, methamphetamine abuse, hypertension, type 2 diabetes, peripheral neuropathy, CVA who came in due to the episode of dizziness and loss of consciousness. Patient is going to be admitted for episode of ventricular tachycardia workup and management. #Episode of ventricular tachycardia #HFrEF, ejection fraction 20-25% 12/18/24 #Paroxysmal atrial fibrillation #History of nonischemic cardiomyopathy #History of hypertension #NSTEMI type II, likely demand ischemia Patient has an extensive history of cardiac disease and he had FACTORY HELPER-D placed by his floor grinder, Dr. Calle. Patient had episode of dizziness and subsequent loss of consciousness and was shocked by defibrillator. In the ED he was hemodynamically stable, received IV labetalol once. EKG showed ventricular pacing. Troponin I elevation most likely due to episode of ventricular tachycardia. Patient continues to use methamphetamine. Patient reported some chest discomfort post defibrillator shock, currently denies any chest pain. Troponin trend: 0.071 ?> 0.073 ?> 0.070, down trended Contacted patient's floor grinder Dr. Calle, per him patient has history of paroxysmal atrial fibrillation. [id number] Score 5 points Plan: -Patient started on amiodarone 400 mg twice daily for 4 days -Patient to transition to amiodarone 200 mg twice daily after indefinitely -Cardiology consulted, appreciate recommendations -Continue Home dose Bumex 1 mg p.o. daily ?Continue Home aspirin 81 mg daily, ?Continue Home atorvastatin 20 mg daily ?Continue Home carvedilol 12.5 mg twice daily ?Continue losartan 100 mg p.o. daily ?Continue apixaban 5 mg p.o. twice daily -Monitor CMP, -Keep Mg above 2 and K above 4, replete as necessary -Daily weight -Strict intake and output, fluid restriction 1500 cc #LUDY on CKD 01/05/25: Creatinine 2.2, on 12/21 creatinine was 1.8 Plan: - will hold IV fluids for now due to concern for fluid overload in the setting of heart failure - will continue with home bumex - monitor CMP - Avoid nephrotoxic agents, renally dose medications #History of methamphetamine abuse Patient reports last use was 3 days ago Urine tox screen positive for methamphetamine Plan: - Patient advised to refrain from methamphetamine use ? creative services specialist referral #COPD Plan: ? Levalbuterol inhalations as needed #Active smoker Plan: ? Nicotine patch #Type 2 diabetes Last A1c 12/08 12.4% Plan: ? Insulin sliding scale ? Resumed home Farxiga - Hypoglycemia protocol, monitor fingersticks Health maintenance: FEN: cardiac, renal, carbohydrate consistent DVT prophylaxis: Eliquis 5 mg BID GI prophylaxis: none Dispo: telemetry CODE STATUS: Full code Case discussed with Attending Dr. Collado and Dr. Cardenas PGY2. Prinecss Gallardo PGY1 Disclaimer: This note was dictated by speech recognition. Minor errors in counter pocket trimmer may be present due to voice recognition software. Attending Provider Attestation/Addendum 59-year-old male patient with nonischemic cardiomyopathy, atrial fibrillation, methamphetamine use, CKD, COPD, chronic smoker was admitted for nonsustained V. tach. The patient's FACTORY HELPER?D fired spontaneously. Patient denies loss of consciousness. He denies persistent chest pain. He had minimal chest pain after firing of FACTORY HELPER-D. He does not have hypertension. Continue medical management. Discussed with housestaff
[2025-01-05] MEDS: AMIODARONE HCL 200 MG TABLET 400 MG PO ×2 (14:21→20:15)
[2025-01-05] MEDS: ATORVASTATIN CALCIUM 20 MG TABLET PO (20:15)
[2025-01-06] VITALS (8 sets, daily range): BP systolic 87–123; BP diastolic 61–98; PULSE 56–89; RESP 18–98; TEMP 36.1; O2SAT 95–97
--- NOTE | 2025-01-06 00:28 | PC.NURSE ---
2340 Will,RN taking over patient care, SBAR given
[2025-01-06 06:41] LABS: Basophils % (Auto) 1 % (0-2.5); Eosinophils # (Auto) 0.1 Thou/mm3 (0.0-0.5); Eosinophils % (Auto) 2 % (0-10); Hematocrit 46.2 % (41.0-53.0); Hemoglobin 15.8 g/dL (13.5-16.0); Immature Granulocytes % (Auto) 0 % (0-0); Immature Granulocytes Auto 0.02 Thou/mm3 (0.00-0.00); Lymphocytes # (Auto) 1.7 Thou/mm3 (1.0-4.8); Lymphocytes % (Auto) 24 % (10-50); Mean Corpuscular HGB Conc 34.2 g/dl (31.0-37.0); Mean Corpuscular Hemoglobin 30.4 pg (25.0-35.0); Mean Corpuscular Volume 89 fL (80-100); Monocytes # (Auto) 0.6 Thou/mm3 (0.0-0.8); Monocytes % (Auto) 9 % (0-12); Neutrophils # (Auto) 4.5 Thou/mm3 (1.8-7.7); Neutrophils % (Auto) 64 % (37-80); Nucleated Red Blood Cell # 0.02 Thou/mm3 (0.00-0.00); Nucleated Red Blood Cell % 0 /100 WBC (0); Platelet Count 195 Thou/mm3 (140-440)
[2025-01-06 07:31] LABS: Alanine Aminotransferase 16 U/L (10-49); Albumin, Serum 3.9 gm/dL (3.5-5.0); Albumin/Globulin Ratio 0.9 (1.2-2.2); Alkaline Phosphatase 311 U/L (46-116); Anion Gap 12 (7-16); Aspartate Amino Transferase 29 U/L (0-34); BUN/Creatinine Ratio 19 Ratio (12-20); Bilirubin,Total 0.7 mg/dL (0.3-1.2); Blood Urea Nitrogen 40 mg/dL (9-23); Calcium 9.5 mg/dL (8.3-10.6); Calcium (Corrected) 9.6 mg/dL (8.5-10.1); Carbon Dioxide 27.7 mMol/L (20.0-31.0); Chloride 98 mMol/L (98-107); Creatinine (Component) 2.1 mg/dL (0.6-1.3); Estimated Creatinine Clearance 52.4 mL/min (>60); Globulin 4.2 gm/dL (2.3-3.5); Glucose 319 mg/dL (74-106); Magnesium 2.4 mg/dL (1.6-2.6); Osmolality,Calculated 297 (275-295); Phosphorous 5.4 mg/dL (2.4-5.1); Potassium 4.6 mMol/L (3.4-5.1); Sodium 138 mMol/L (136-145); Total Protein 8.1 gm/dL (5.7-8.2); eGFR 36 See Note
[2025-01-06] MEDS: INSULIN LISPRO (AdmeLOG) 1 UNIT/0.01 ML UNIT SC ×3 (07:36→16:06)
[2025-01-06] MEDS: DAPAGLIFLOZIN PROPANEDIOL 5 MG TABLET 10 MG PO (08:30)
[2025-01-06] MEDS: carVEDILOL 12.5 MG TABLET PO (08:30)
[2025-01-06] MEDS: AMIODARONE HCL 200 MG TABLET 400 MG PO (08:31)
[2025-01-06] MEDS: BUMETANIDE 0.5 MG TABLET 1 MG PO (08:31)
[2025-01-06] MEDS: ASPIRIN EC 81 MG TABEC PO (08:31)
[2025-01-06] MEDS: LOSARTAN POTASSIUM 25 MG TABLET 100 MG PO (08:31)
[2025-01-06] MEDS: APIXABAN 2.5 MG TABLET 5 MG PO (08:31)
[2025-01-06] MEDS: INSULIN GLARGINE (Lantus) 5 UNIT/0.05 ML (PER 5 UNITS) 20 UNIT SC (08:35)
--- NOTE | 2025-01-06 11:21 | ESPR_ITS ---
<Statement entered by Tomasz Michael MD - 01/07/25 17:55> The patient is evaluated by me along with resident physician appears to be doing better now does not complain of any chest pain shortness of breath he did have no further shocks as an amiodarone tolerated well so far evaluated the patient with resident physician PGY 3 Dr. Arian Howell treatment and plan discussed agree with the recommendations and treatment plan as documented Documentation for date of: 01/06/25 Subjective Subjective Interval history: patient seen and examined doing well, had self aborted SVT event that resolved on it own, EARTH SCIENCE TECHNICAL OFFICER-D did not shock, patient was asymptomatic case discussed with primary hospitalist team Exam Vital Signs Temp Pulse Resp BP Pulse Ox O2 Del Method 96.9 F 76 20 123/98 H 95 Room Air 01/06/25 08:00 01/06/25 08:31 01/06/25 08:00 01/06/25 08:31 01/06/25 08:00 01/06/25 08:00 Narrative Exam Physical Exam General: Awake and in no acute distress. Conversational and non-toxic appearing. HEENT: Normocephalic, atraumatic, mucous membranes moist. Heart: Regular rate and rhythm, no murmurs. Lungs: Clear to auscultation with no wheezing or crackles. Abdomen: Soft, nondistended, nontender, positive bowel sounds. ?No guarding or rebound tenderness. Neurologic: Alert and oriented x3, no gross neurological deficit, and patient able to move all 4 extremities. Extremities: 1+ tibial edema. Skin: Residual bilateral tibial erythema, resolving. Extremities excoriations. Objective Labs 01/06/25 05:50 01/06/25 05:50 Labs: Laboratory Results - last 24 hr 01/05/25 01/06/25 12:34 05:50 WBC 7.0 RBC 5.20 Hgb 15.8 Hct 46.2 MCV 89 MCH 30.4 MCHC 34.2 RDW Std Deviation 58.0 H Plt Count 195 Neut % (Auto) 64 Lymph % (Auto) 24 Banks % (Auto) 9 Eos % (Auto) 2 Baso % (Auto) 1 Neut # (Auto) 4.5 Lymph # (Auto) 1.7 Banks # (Auto) 0.6 Eos # (Auto) 0.1 Baso # (Auto) 0.0 Immature Gran # (Auto) 0.02 H Absolute Nucleated RBC 0.02 H Immature Gran % 0 Nucleated RBC % 0 Sodium 138 Potassium 4.6 Chloride 98 Carbon Dioxide 27.7 Anion Gap 12 BUN 40 H Creatinine 2.1 H Estim Creat Clear Calc 52.4 L eGFR 36 L BUN/Creatinine Ratio 19 Glucose 319 H Calculated Osmolality 297 H Calcium 9.5 Corrected Calcium 9.6 Phosphorus 5.4 H Magnesium 2.4 Total Bilirubin 0.7 AST 29 ALT 16 Alkaline Phosphatase 311 H Troponin I 0.070 H* Total Protein 8.1 Albumin 3.9 Globulin 4.2 H Albumin/Globulin Ratio 0.9 L Quality Measures Quality Measures VTE prophylaxis Assessment & Plan Assessment Current Active Medications: Generic Name Dose Route Start Last Admin Trade Name Freq PRN Reason Stop Dose Admin Acetaminophen 650 mg 01/05/25 03:07 01/05/25 04:31 Acetaminophen 325 Mg Tablet PO 02/04/25 03:06 650 mg Q6H PRN Administration Fever >100.3 or pain 1-3 Amiodarone HCl 400 mg 01/05/25 14:00 01/06/25 08:31 Amiodarone Hcl 200 Mg Tablet PO 01/09/25 13:59 400 mg BID DELFINA Administration Apixaban 5 mg 01/05/25 09:00 01/06/25 08:31 Apixaban 2.5 Mg Tablet PO 02/04/25 08:59 5 mg BID DELFINA Administration Aspirin 81 mg 01/05/25 09:00 01/06/25 08:31 Aspirin Ec 81 Mg Tabec PO 02/04/25 08:59 81 mg QDAY DELFINA Administration Atorvastatin Calcium 20 mg 01/05/25 21:00 01/05/25 20:15 Atorvastatin Calcium 20 Mg Tablet PO 02/04/25 20:59 20 mg QPM DELFINA Administration Bumetanide 1 mg 01/05/25 09:00 01/06/25 08:31 Bumetanide 0.5 Mg Tablet PO 02/04/25 08:59 1 mg QDAY DELFINA Administration Carvedilol 12.5 mg 01/05/25 03:15 01/06/25 08:30 Carvedilol 12.5 Mg Tablet PO 02/04/25 03:14 12.5 mg BIDWM DELFINA Administration Dapagliflozin 10 mg 01/05/25 09:00 01/06/25 08:30 Dapagliflozin Propanediol 5 Mg Tablet PO 02/04/25 08:59 10 mg QAM DELFINA Administration Dextrose 25 ml 01/05/25 03:14 Dextrose 50%-Water Inj 50 Ml Syringe IV 02/04/25 03:13 Q15MIN PRN BG 50-70 responsive npo pt Dextrose 50 ml 01/05/25 03:14 Dextrose 50%-Water Inj 50 Ml Syringe IV 02/04/25 03:13 Q15MIN PRN BG <50 OR BG <70 & pt unresponsive Glucagon 1 mg 01/05/25 03:14 Glucagon Inj 1 Mg Vial IM Q15MIN PRN BG <70, and no IV access Insulin Glargine 20 unit 01/06/25 09:00 01/06/25 08:35 Insulin Glargine (Lantus) 5 Unit/0.05 Ml (Per 5 Units) SC 02/05/25 08:59 20 unit QDAY DELFINA Administration Insulin Human Lispro 0 unit 01/06/25 08:32 Insulin Lispro (Admelog) 1 Unit/0.01 Ml Unit SC 02/04/25 07:29 AC DELFINA Protocol Levalbuterol HCl 0.63 mg 01/05/25 04:40 Levalbuterol Rt 0.63 Mg/3 Ml Nebu INH 02/04/25 04:39 Q8HR PRN WHEEZING Losartan Potassium 100 mg 01/05/25 09:00 01/06/25 08:31 Losartan Potassium 25 Mg Tablet PO 02/04/25 08:59 100 mg QDAY DELFINA Administration Magnesium Hydroxide 30 ml 01/05/25 03:07 Milk Of Magnesia Susp 30 Ml Udc PO 02/04/25 03:06 QDAY PRN CONSTIPATION Protocol Sennosides 1 tab 01/05/25 04:21 Senna Tablet PO 02/04/25 03:06 QDAY PRN constipation Protocol Plan The patient is a 59-year-old male with a previous medical history of HFrEF ejection fraction 20 to 25% on 12/18/24, s/p EARTH SCIENCE TECHNICAL OFFICER-D placement, nonischemic cardiomyopathy, methamphetamine abuse, hypertension, type 2 diabetes, peripheral neuropathy, CVA who came in due to the episode of dizziness and loss of consciousness. Patient is going to be admitted for episode of ventricular tachycardia workup and management. #Syncope, likely cardiogenic d/t Ventricular tachycardia #HFrEF, ejection fraction 20-25% 12/18/24 #History of nonischemic cardiomyopathy #History of hypertension #Elevated troponin I likely supply/demand Assessment: Patient has an extensive history of cardiac disease and he had EARTH SCIENCE TECHNICAL OFFICER-D placed by his copyman, Dr. Calle. Patient had episode of dizziness and subsequent loss of consciousness and was shocked by defibrillator. In the ED he was hemodynamically stable, received IV labetalol once. EKG showed ventricular pacing. Troponin I elevation most likely due to episode of ventricular tachycardia. Patient continues to use methamphetamine. Likely etiology of the patient's syncope is cardiogenic due to the episode of ventricular tachycardia. And onset of the patient's symptoms which were lightheadedness dizziness followed by the syncope. Due to the patient's low EF of 20% patient is high risk of sudden cardiac . Patient was shocked with his EARTH SCIENCE TECHNICAL OFFICER?D. Hospitalist note the EARTH SCIENCE TECHNICAL OFFICER-D was interrogated which showed ventricular tachycardia and evidence of 2 shocks. Currently patient is hemodynamically stable no arrhythmias noted. Electrolytes are within normal limits. Patient is on GDMT. Likely cause of the patient's elevated troponin due to supply and demand in the setting of a tachyarrhythmia. To emphasize the patient does suffer from nonischemic dilated cardiomyopathy secondary to methamphetamine use disorder with a EF 20%. Recommendations: ?Home aspirin 81 mg daily, ? Home atorvastatin 20 mg daily ? Home carvedilol 12.5 mg twice daily ? Losartan 100 mg p.o. daily ? Apixaban 5 mg p.o. twice daily - continue home bumex - monitor CMP, keep Mg above 2 and K above 4, replete as necessary - cont amiodarone 400mg PO bid loading for 2 days then continue 200mg PO BID - f/u with their copyman #History of methamphetamine abuse #COPD #Active smoker #Type 2 diabetes #ULDY on CKD defere management with primary team - Patient's care was discussed with my attending physician, Dr. Alec Montejo MD Internal Medicine PGY-3
--- NOTE | 2025-01-06 11:49 | PC.SS ---
Follow up note: Pt is possible d/c home pending Cardio clearance.
--- NOTE | 2025-01-06 12:13 | EKG_ITS ---
[facility] Test Date: 2025-01-06 Pat Name: NOELLE BRITO [facility] Biological Engineer: IRMA : 1965 Requested By: Princess Gallardo Order Number: [id number] Reading MD: Princess Gallardo Measurements Intervals [place] Rate: 80 P: 35 VA: 187 QRS: 261 QRSD: 162 T: 80 QT: 414 QTc: 478 Interpretive Statements ELECTRONIC VENTRICULAR PACEMAKER ABNORMAL RHYTHM ECG Compared to ECG 01/05/2025 02:08:08 No significant changes /[id number]/S0/[id number].pdf
--- NOTE | 2025-01-06 15:22 | ESDS_ITS ---
Planned Discharge Date 01/06/25 DS: Providers Provider Date of admission: 01/05/25 03:07 Primary care physician: Jad Lipscomb MD Admitting Provider: Philippe Castellon MD Attending Provider on Admission: Dionisio Collado MD Consults: 01/05/25 03:18 Consult to Cardiology Stat Comment: CHF, Vfib episode Consulting Provider: Tomasz Michael Attending Provider on DC: Dionisio Collado MD Discharging Provider: Dionisio Collado MD Anticipated date of discharge: 01/06/25 DS: Diagnosis Problem List Completed Was Problem List Reviewed/Reconciled?: Yes Hospital Course Hospital Course Hospital course: Hospital course: Mr. Martinez is a 59-year-old male with past medical history of HFrEF ejection fraction 20 to 25% on 12/18/24, s/p OUTBOARD MOTORBOAT RIGGER-D placement, nonischemic cardiomyopathy, methamphetamine abuse, hypertension, type 2 diabetes, peripheral neuropathy, CVA who presented to the emergency department on 01/05/2025 due to the episode of dizziness and loss of consciousness. Patient was admitted to the hospital for an episode of ventricular tachycardia for further workup and management. Patient was at home when he experienced the loss of consciousness and was shocked by defibrillator, pacemaker interrogation in the ED confirmed the episode. On admission patient's home medications were continued, cardiology was consulted. Per cardiology recommendations patient was started on amiodarone 400 twice daily, patient was instructed to take amiodarone 400 twice daily for 4 days and then transition to amiodarone 200 mg twice a day indefinitely. During the hospitalization patient's mechanical commissioning engineer Dr. Calle was contacted and informed of patient's admission, per Dr. Calle patient also has history of atrial fibrill ation and is on Eliquis for the same. With the progression of hospital course patient condition improved, further plan is to discharge patient home on amiodarone 400 twice daily for 2 days and then transition to amiodarone 200 mg twice daily indefinitely. Patient verbalized understanding of the plan, patient to follow-up with cardiology outpatient in 1 to 2 weeks. Patient to continue other GDMT and home medications as directed by mechanical commissioning engineer. Patient advised to refrain from methamphetamine use. Patient is stable for discharge and responded well to hospital treatment. Discharge diagnosis: #Episode of ventricular tachycardia #HFrEF, ejection fraction 20-25% 12/18/24 #Paroxysmal atrial fibrillation #History of nonischemic cardiomyopathy #History of hypertension #NSTEMI type II, likely demand ischemia #LUDY on CKD # Methamphetamine dependence #COPD # Nicotine dependence #Type 2 diabetes Case discussed with Attending Dr. Collado. Princess Gallardo PGY1 Disclaimer: This note was dictated by speech recognition. Minor errors in public health dentist may be present due to voice recognition software. Time Spent with Patient Time attestation: Total time spent providing and/or coordinating discharge services: Time spent: Greater than 30 minutes Exam Vital Signs Temp Pulse Resp BP Pulse Ox O2 Del Method 97.0 F 56 L 20 113/82 95 Room Air 01/06/25 12:00 01/06/25 12:00 01/06/25 12:00 01/06/25 12:00 01/06/25 12:00 01/06/25 12:00 Narrative Exam Physical Exam General: Awake and in no acute distress. Conversational and non-toxic appearing. HEENT: Normocephalic, atraumatic, mucous membranes moist. Heart: Regular rate and rhythm, no murmurs. Lungs: Clear to auscultation with no wheezing or crackles. Abdomen: Soft, nondistended, nontender, positive bowel sounds. ?No guarding or rebound tenderness. Neurologic: Alert and oriented x3, no gross neurological deficit, and patient able to move all 4 extremities. Extremities: 1+ tibial edema. Skin: Residual bilateral tibial erythema, resolving. Extremities excoriations. Discharge Plan Plan Patient Disposition: HOME (Self Care) Patient condition on transfer: Stable Prescriptions/Referrals Prescriptions/Med Rec: New amiodarone 400 mg tablet 400 mg PO BID Qty: 5 0RF Rx Instructions: 400 BID first dose tonight and two more days only then start 200 BID amiodarone 200 mg tablet 200 mg PO BID 30 Days Qty: 60 0RF Rx Instructions: Start Date 01/09/2025 Continued cyclobenzaprine 10 mg Tablet 10 mg PO HS PRN (Reason: Muscle Spasm) atorvastatin 20 mg Tablet 20 mg PO QPM carvedilol 12.5 mg Tablet 12.5 mg PO BID Rx Instructions: must administer with a meal/food aspirin 81 mg Tablet 81 mg PO QDAY losartan 100 mg Tablet 100 mg PO QDAY insulin lispro [Humalog KwikPen Insulin] 100 unit/mL Insulin Pen 5 unit SUBCUT TID dapagliflozin propanediol [Farxiga] 10 mg Tablet 10 mg PO QDAY potassium chloride 20 mEq Tablet Extended Release 20 meq PO QDAY insulin degludec [Tresiba FlexTouch U-100] 100 unit/mL (3 mL) insulin pen 25 unit SUBCUT DAILY Qty: 15 0RF (DME) FreeStyle Connor 3 Plus Sensor Device See Rx Instructions .Route Qty: 2 2RF Rx Instructions: As directed (DME) FreeStyle [place] 3 [place] Misc See Rx Instructions .Route Qty: 1 0RF Rx Instructions: As directed bumetanide 1 mg tablet 1 mg PO QDAY Qty: 30 2RF Eliquis 5 mg tablet 5 mg PO BID Patient Comments: TAKE 1 TABLET BY MOUTH TWICE A DAY acetaminophen 500 mg tablet 500 mg PO Q6H PRN (Reason: pain) Patient Comments: TAKE 1 TABLET BY MOUTH EVERY 6 HOURS NEEDED FOR 15 DAYS Ozempic 0.25 mg or 0.5 mg(2 mg/1.5 mL) pen injector 0.5 mg subcut QWEEK Referrals: Eric Calle MD [Referring Provider] - Jad Lipscomb MD [Primary Care Provider] - Patient/Caregiver Discharge Instructions Discharge Activity: activity as tolerated Other Discharge Activity Instructions:: Continue amiodarone 400mg for tonight and 2 more days, stop amiodarone 400 mg on 01/08/2025 evening. Start amiodarone 200 mg twice daily indefinitely, follow-up with Dr. Calle outpatient in 1 to 2 weeks. Continue all other home medications as prescribed. Follow-up with primary care physician in 1 to 2 weeks. Return to emergency department if symptoms worsen. Education Materials: Ventricular Arrhythmia, Know the Medicines You're Taking, Warning Signs of a Heart Attack Print Language: Argentine Stand Alone Forms: Cristina Award Info., Patient Portal Info Letter Discharge Order Discharge Orders: Discharge (Routine); Ordered 01/06/25 Ordered By: Princess Gallardo Quality Discharge Quality Measures VTE prophylaxis Attestestation Attestation I discussed with and supervised the resident physician who took care of this patient. I agree with the assessment and discharge plan as above.
--- NOTE | 2025-01-06 16:02 | PC.SS ---
SS met with patient and his mom regarding d/c plan.? Pt is alert/oriented.? Pt was admitted for VRI Episode.? Pt confirmed demographic and contact information is correct on facesheet.? Pt resides with mom.? Pt ambulates using a cane.? Pt is ok with all ADLs.? Pt states he has 2 [employer] caregivers 5 days week.? Pt named his mom, Heidi Martinez medical decision maker if he is unable.? Patient?s choice is to return home upon d/c.? Pt states he is diabetic, has glucometer, and test strips.? Pt states he followed up with PCP in December.? Mom will be providing transportation. D/C plan:? Return home Next of Kin:? Heidi Martinez, mom, phone# [phone] PCP:? Dr. Jad Lipscomb Address:? Correct on facesheet
== END 2025-01-06 16:41 | disposition home or self-care (01) | DRG 201 ==
LOC: SERX 01-05 02:06 → SERHOLD 01-05 03:24 → S2NX 01-05 05:15
PROVIDERS: Admitting Provider Student in an Organized Health Care Education/Training Program; Emergency Provider Emergency Medicine; PCP Family Medicine; Visit Provider Internal Medicine
DX: I47.20 Ventricular tachycardia, unspecified (principal); J44.9 Chronic obstructive pulmonary disease, unspecified; I13.0 Hypertensive heart and chronic kidney disease with heart failure and stage 1 through stage 4 chronic kidney disease, or unspecified chronic kidney disease; I50.22 Chronic systolic (congestive) heart failure; E11.42 Type 2 diabetes mellitus with diabetic polyneuropathy; I42.8 Other cardiomyopathies; F17.210 Nicotine dependence, cigarettes, uncomplicated; E11.22 Type 2 diabetes mellitus with diabetic chronic kidney disease; S80.211A Abrasion, right knee, initial encounter; F15.20 Other stimulant dependence, uncomplicated; N17.9 Acute kidney failure, unspecified; I42.7 Cardiomyopathy due to drug and external agent; N18.9 Chronic kidney disease, unspecified; E78.5 Hyperlipidemia, unspecified; I48.0 Paroxysmal atrial fibrillation; I24.89 Other forms of acute ischemic heart disease; I48.91 Unspecified atrial fibrillation; Z86.73 Personal history of transient ischemic attack (TIA), and cerebral infarction without residual deficits; Q60.2 Renal agenesis, unspecified; W19.XXXA Unspecified fall, initial encounter; Z95.810 Presence of automatic (implantable) cardiac defibrillator; Z79.01 Long term (current) use of anticoagulants; Z79.82 Long term (current) use of aspirin; Z79.4 Long term (current) use of insulin; Z79.899 Other long term (current) drug therapy
CPT/HCPCS: 36415; 71045; 80053; 80307; 83735; 83880; 84100; 84484; 85025; 85610; 85730; 87081; 93005; 99291; J1815; J3490; J8499; A9270; J1920

== ENCOUNTER → 2025-01-13 | Outpatient (CLI) | payer MEDICAID, SELFPAY ==
[2025-01-13 12:03] LABS: Basophils % (Auto) 0 % (0-2.5); Eosinophils # (Auto) 0.1 Thou/mm3 (0.0-0.5); Eosinophils % (Auto) 2 % (0-10); Hematocrit 48.7 % (41.0-53.0); Hemoglobin 15.9 g/dL (13.5-16.0); Immature Granulocytes % (Auto) 0 % (0-0); Immature Granulocytes Auto 0.03 Thou/mm3 (0.00-0.00); Lymphocytes # (Auto) 1.7 Thou/mm3 (1.0-4.8); Lymphocytes % (Auto) 23 % (10-50); Mean Corpuscular HGB Conc 32.6 g/dl (31.0-37.0); Mean Corpuscular Hemoglobin 30.1 pg (25.0-35.0); Mean Corpuscular Volume 92 fL (80-100); Monocytes # (Auto) 0.6 Thou/mm3 (0.0-0.8); Monocytes % (Auto) 8 % (0-12); Neutrophils # (Auto) 4.8 Thou/mm3 (1.8-7.7); Neutrophils % (Auto) 66 % (37-80); Nucleated Red Blood Cell % 0 /100 WBC (0); Platelet Count 218 Thou/mm3 (140-440); RDW Standard Deviation 59.8 fL (35.1-43.9); Red Blood Count 5.28 Miln/mm3 (4.50-5.90); White Blood Count 7.3 Thou/mm3 (3.8-10.6)
[2025-01-13 12:24] LABS: Alanine Aminotransferase 19 U/L (10-49); Albumin, Serum 3.7 gm/dL (3.5-5.0); Alkaline Phosphatase 301 U/L (46-116); Anion Gap 9 (7-16); Aspartate Amino Transferase 20 U/L (0-34); B-Type Natriuretic Peptide 1477 pg/mL (0-100); BUN/Creatinine Ratio 18 Ratio (12-20); Bilirubin,Direct 0.3 mg/dL (0.0-0.3); Bilirubin,Total 0.8 mg/dL (0.3-1.2); Blood Urea Nitrogen 40 mg/dL (9-23); Calcium 9.3 mg/dL (8.3-10.6); Carbon Dioxide 30.3 mMol/L (20.0-31.0); Cardiac Risk Estimate 3.5 RATIO (4.0-6.7); Chloride 98 mMol/L (98-107); Cholesterol 113 mg/dL (132-200); Creatinine (Component) 2.2 mg/dL (0.6-1.3); Glucose 391 mg/dL (74-106); HDL Cholesterol 32 mg/dL (40-60); LDL Cholesterol,Calculated 54 mg/dL (0-130); Osmolality,Calculated 299 (275-295); Phosphorous 4.9 mg/dL (2.4-5.1); Sodium 137 mMol/L (136-145); Total Protein 8.2 gm/dL (5.7-8.2); Triglycerides 135 mg/dL (30-150); eGFR 34 See Note
[2025-01-22 06:34] LABS: Direct LDL* 57 mg/dL (<100)
== END | disposition home or self-care (01) ==
LOC: COPL 11:19
PROVIDERS: PCP Family Medicine; Referring Provider Internal Medicine Cardiovascular Disease; Visit Provider Internal Medicine Cardiovascular Disease
DX: E78.49 Other hyperlipidemia (principal); I10 Essential (primary) hypertension
CPT/HCPCS: 36415; 80048; 80061; 80076; 83721; 83880; 84100; 85025

== ENCOUNTER → 2025-01-22 | Outpatient (CLI) | payer MEDICAID, SELFPAY ==
[2025-01-22 10:53] LABS: Glucose Estimated Average 306 mg/dL (80-131); Hemoglobin A1C 12.3 % Hgb (4.8-6.0)
[2025-01-22 10:57] LABS: Parathyroid Hormone Intact 77.5 pg/ml (18.5-88.0)
[2025-01-22 10:58] LABS: Alanine Aminotransferase 20 U/L (10-49); Albumin, Serum 3.7 gm/dL (3.5-5.0); Albumin/Globulin Ratio 0.9 (1.2-2.2); Alkaline Phosphatase 220 U/L (46-116); Anion Gap 5 (7-16); Aspartate Amino Transferase 22 U/L (0-34); BUN/Creatinine Ratio 18 Ratio (12-20); Bilirubin,Total 0.6 mg/dL (0.3-1.2); Blood Urea Nitrogen 43 mg/dL (9-23); Calcium 8.6 mg/dL (8.3-10.6); Calcium (Corrected) 8.8 mg/dL (8.5-10.1); Carbon Dioxide 31.2 mMol/L (20.0-31.0); Cardiac Risk Estimate 3.8 RATIO (4.0-6.7); Chloride 100 mMol/L (98-107); Cholesterol 113 mg/dL (132-200); Creatinine (Component) 2.4 mg/dL (0.6-1.3); Glucose 263 mg/dL (74-106); HDL Cholesterol 30 mg/dL (40-60); LDL Cholesterol,Calculated 54 mg/dL (0-130); Osmolality,Calculated 291 (275-295); Potassium 4.5 mMol/L (3.4-5.1); Sodium 136 mMol/L (136-145); Total Protein 7.7 gm/dL (5.7-8.2); Triglycerides 143 mg/dL (30-150); eGFR 31 See Note
[2025-01-22 11:17] LABS: Creatinine,Random Urine 71 mg/dL (30-125); Protein Total, Random Urine 219 mg/dL (1-14)
== END | disposition home or self-care (01) ==
LOC: COPL 09:15
PROVIDERS: PCP Family Medicine; Referring Provider Internal Medicine; Visit Provider Internal Medicine
DX: I12.9 Hypertensive chronic kidney disease with stage 1 through stage 4 chronic kidney disease, or unspecified chronic kidney disease (principal); E11.22 Type 2 diabetes mellitus with diabetic chronic kidney disease; N18.30 Chronic kidney disease, stage 3 unspecified; E78.5 Hyperlipidemia, unspecified
CPT/HCPCS: 36415; 80053; 80061; 82570; 83036; 83970; 84156

== ENCOUNTER → 2025-06-22 | Outpatient (CLI) | payer MEDICAID, SELFPAY ==
[2025-06-22 09:08] LABS: Collection Type, Urine Clean Catch
[2025-06-22 09:33] LABS: Basophils # (Auto) 0.1 Thou/mm3 (0.0-0.2); Basophils % (Auto) 1 % (0-2.5); Eosinophils # (Auto) 0.1 Thou/mm3 (0.0-0.5); Eosinophils % (Auto) 2 % (0-10); Hematocrit 53.5 % (41.0-53.0); Hemoglobin 17.9 g/dL (13.5-16.0); Immature Granulocytes Auto 0.04 Thou/mm3 (0.00-0.00); Lymphocytes # (Auto) 2.4 Thou/mm3 (1.0-4.8); Lymphocytes % (Auto) 27 % (10-50); Mean Corpuscular HGB Conc 33.5 g/dl (31.0-37.0); Mean Corpuscular Hemoglobin 31.3 pg (25.0-35.0); Mean Corpuscular Volume 94 fL (80-100); Monocytes # (Auto) 0.6 Thou/mm3 (0.0-0.8); Monocytes % (Auto) 7 % (0-12); Neutrophils # (Auto) 5.6 Thou/mm3 (1.8-7.7); Neutrophils % (Auto) 63 % (37-80); Nucleated Red Blood Cell # 0.00 Thou/mm3 (0.00-0.00); Nucleated Red Blood Cell % 0 /100 WBC (0); Platelet Count 254 Thou/mm3 (140-440); RDW Standard Deviation 49.8 fL (35.1-43.9); Red Blood Count 5.71 Miln/mm3 (4.50-5.90); White Blood Count 8.9 Thou/mm3 (3.8-10.6)
[2025-06-22 09:42] LABS: Glucose Estimated Average 292 mg/dL (80-131); Hemoglobin A1C 11.8 % Hgb (4.8-6.0)
[2025-06-22 09:55] LABS: Alanine Aminotransferase 59 U/L (10-49); Albumin, Serum 3.8 gm/dL (3.5-5.0); Albumin/Globulin Ratio 1.1 (1.2-2.2); Alkaline Phosphatase 224 U/L (46-116); Anion Gap 10 (7-16); Aspartate Amino Transferase 32 U/L (0-34); BUN/Creatinine Ratio 12 Ratio (12-20); Bilirubin,Direct 0.1 mg/dL (0.0-0.3); Bilirubin,Total 0.4 mg/dL (0.3-1.2); Blood Urea Nitrogen 36 mg/dL (9-23); Calcium 8.5 mg/dL (8.3-10.6); Calcium (Corrected) 8.7 mg/dL (8.5-10.1); Carbon Dioxide 29.5 mMol/L (20.0-31.0); Cardiac Risk Estimate 3.2 RATIO (4.0-6.7); Chloride 99 mMol/L (98-107); Cholesterol 123 mg/dL (132-200); Creatinine (Component) 2.9 mg/dL (0.6-1.3); Globulin 3.6 gm/dL (2.3-3.5); Glucose 233 mg/dL (74-106); HDL Cholesterol 38 mg/dL (40-60); LDL Cholesterol,Calculated 57 mg/dL (0-130); Osmolality,Calculated 290 (275-295); Phosphorous 5.3 mg/dL (2.4-5.1); Potassium 4.3 mMol/L (3.4-5.1); Sodium 138 mMol/L (136-145); Thyroid Stimulating Hormone 8.81 uIU/mL (0.55-4.78); Total Protein 7.4 gm/dL (5.7-8.2); Triglycerides 138 mg/dL (30-150); eGFR 24 See Note
[2025-06-22 09:58] LABS: Parathyroid Hormone Intact 213.5 pg/ml (18.5-88.0)
[2025-06-22 10:02] LABS: Vitamin B12 595 pg/mL (211-911); Vitamin D 25 Hydroxy Total 35.6 ng/mL (7.3-40.2)
[2025-06-22 10:02] LABS: Bacteria,Urine Rare; Bilirubin,Urine Negative (Negative); Blood,Urine Trace (Negative); Clarity,Urine Clear (Clear/Hazy); Color,Urine Lt-Yellow (Lt Yel-Yel); Glucose, Urine 4+ (Negative); Ketones,Urine Negative (Negative); Leukocyte Esterase,Urine Negative (Negative); Nitrite,Urine Negative (Negative); PH,Urine 6.5 (5.0-7.0); Protein,Urine 2+ (Neg - Trace); RBC,Urine 3 /hpf (0-3); Specific Gravity,Urine 1.023 (1.001-1.035); Squamous Epithelial Cell,Urine < 1 /hpf (0-5); Urobilinogen,Urine Negative mg/dL (0.0-1.0); WBC,Urine 1 /hpf (0-5)
[2025-06-22 10:03] LABS: B-Type Natriuretic Peptide 331 pg/mL (0-100)
[2025-06-22 10:04] LABS: Creatinine,Random Urine 100 mg/dL (30-125); Protein Total, Random Urine 236 mg/dL (1-14)
== END | disposition home or self-care (01) ==
LOC: COPL 07:55
PROVIDERS: PCP Family Medicine; Referring Provider Internal Medicine Cardiovascular Disease; Visit Provider Internal Medicine
DX: E11.22 Type 2 diabetes mellitus with diabetic chronic kidney disease (principal); I12.9 Hypertensive chronic kidney disease with stage 1 through stage 4 chronic kidney disease, or unspecified chronic kidney disease; N18.30 Chronic kidney disease, stage 3 unspecified; E78.5 Hyperlipidemia, unspecified; I25.10 Atherosclerotic heart disease of native coronary artery without angina pectoris; E55.9 Vitamin D deficiency, unspecified; D51.0 Vitamin B12 deficiency anemia due to intrinsic factor deficiency; E03.9 Hypothyroidism, unspecified
CPT/HCPCS: 36415; 80053; 80061; 81001; 82248; 82306; 82570; 82607; 83036; 83880; 83970; 84100; 84156; 84443; 85025

== ENCOUNTER → 2025-08-09 | Outpatient (CLI) | payer MEDICAID, SELFPAY ==
[2025-08-09 09:43] LABS: Albumin, Serum 3.9 gm/dL (3.5-5.0); Anion Gap 9 (7-16); BUN/Creatinine Ratio 13 Ratio (12-20); Blood Urea Nitrogen 30 mg/dL (9-23); Calcium 8.3 mg/dL (8.3-10.6); Calcium (Corrected) 8.4 mg/dL (8.5-10.1); Carbon Dioxide 26.3 mMol/L (20.0-31.0); Chloride 104 mMol/L (98-107); Creatinine (Component) 2.4 mg/dL (0.6-1.3); Glucose 318 mg/dL (74-106); Osmolality,Calculated 295 (275-295); Phosphorous 4.1 mg/dL (2.4-5.1); Potassium 4.7 mMol/L (3.4-5.1); Sodium 139 mMol/L (136-145); eGFR 31 See Note
== END | disposition home or self-care (01) ==
PROVIDERS: PCP Internal Medicine; Referring Provider Internal Medicine; Visit Provider Internal Medicine
DX: N17.9 Acute kidney failure, unspecified (principal)
CPT/HCPCS: 36415; 80069